=== PATIENT | male | born 1935 | race Caucasian/White ===

== ENCOUNTER → 2017-01-27 | Outpatient (CLI) | payer OTHER ==
[~2017-01-27] MED LIST: ACET-1311 PO; ACET325T96 PO; ASPEC81 PO; ASPI81TA28 PO; ATV1 PO; BUSP5TAB59 PO; CITA10TA4 PO; CITA10TA8 PO; CITA20TA9 PO; CLX20 PO; DIVA1CAP PO; MELA1TAB5 PO; MELATAB2 PO; MIRA1TAB3 PO; MIRT15TA2 PO; MULT-506 PO; MULTTAB PO; MULTTAB63 PO; NMN10 PO; POLY335019 PO; SRQ25 PO; TAMS0.4C38 PO; TRAZ50TA35 PO; ZYP25 PO; ZYP5 PO
== END | disposition home or self-care (01) ==
LOC: C.LABSPEC 17:38
PROVIDERS: ATTEND Nurse Practitioner Family
DX: N40.0 Benign prostatic hyperplasia without lower urinary tract symptoms (principal); R35.1 Nocturia

== ENCOUNTER 2017-02-20 19:45 | Emergency (ER) | payer OTHER ==
[~2017-02-20] VITALS: Ht 175.3 cm; Wt 84.0 kg
[~2017-02-20 19:45] MED LIST changes: -ACET-1311 PO; -ASPI81TA28 PO; -ATV1 PO; -BUSP5TAB59 PO; -CITA10TA4 PO; -CITA10TA8 PO; -CITA20TA9 PO; -CLX20 PO; -DIVA1CAP PO; -MELA1TAB5 PO; -MELATAB2 PO; -MIRA1TAB3 PO; -MULT-506 PO; -MULTTAB63 PO; -POLY335019 PO; -TAMS0.4C38 PO; -TRAZ50TA35 PO; -ZYP25 PO; -ZYP5 PO
[2017-02-20 19:49] VITALS: TEMP 36.9; Ht 175.3 cm; Wt 84.0 kg
[2017-02-20] MEDS ORDERED: SODIUM CHLORIDE 0.9% 1000ML 1,000 ML IV STA (20:13)
--- NOTE | 2017-02-20 20:21 | EMERGENCY ROOM VISIT NOTE ---
History Report prepared by Ghislaine: Alireza Yang Under the Supervision of: Dr. Kit Luong M.D. First contact with patient: 19:56 Chief Complaint: DIZZY Stated Complaint: DIZZINESS Nursing Triage Summary: pt c/o dizziness since 1729. reports pt was holding onto banister and furniture to stabilize himself, denies any falls or injury. pt denies pain. hx of Dementia family reports pt is acting as normal other than the dizziness. fall about 6 weeks ago and hit head History of Present Illness The patient is an 81 year old demented male who presents to the Emergency Room with complaints of persistent dizziness since approximately 1729 today. As per , the patient got up from a nap and was holding onto objects around the house to keep his balance. He did not fall or hit his head. The patient has been difficult to wake up lately. He has also had trouble changing his clothes. The has not noticed any fevers, chest pain, shortness of breath, nausea, vomiting. He has been keeping up with his fluids. The patient is not on any blood thinners. The patient takes Flomax. The patient is at baseline mental status per and neighbor, and is severely demented. Source of History: spouse/significant other, other (neighbor) Onset: 1729 today Position: other (global) Quality: other (dizziness) Timing: other (persistent) Associated Symptoms: No SOB, No chest pain, No fevers, No nausea, No vomiting Review of Systems See HPI for pertinent positives & negatives. A total of 10 systems reviewed and were otherwise negative. Past Medical & Surgical Medical Problems: (1) Dementia (2) Depression (3) Iron deficiency anemia Old medical records were reviewed. Nurse's notes were reviewed and I agree with. Family History Patient reports no known family medical history. Social History Smoking Status: Never Smoker Drug Use: none Marital Status: Housing Status: lives with significant other Occupation Status: retired Current/Historical Medications Scheduled Aspirin (Aspirin Ec), 81 MG PO QAM Citalopram Hydrobromide (Celexa), 10 MG PO QAM Melatonin (Kp Melatonin), 3 MG PO HS Memantine (Namenda), 10 MG PO BID Mirabegron (Myrbetriq Er), 50 MG PO QAM Multivitamin (Multivitamin), 1 TAB PO QAM Tamsulosin Hcl (Flomax), 0.4 MG PO HS Scheduled PRN Acetaminophen (Tylenol), 650 MG PO Q6H PRN for Pain or Fever Allergies Coded Allergies: Rivastigmine (Verified Allergy, Intermediate, NEURO COMPLICATIONS/RASH, ) Physical Exam Vital Signs Date Time Temp Pulse Resp B/P Pulse Ox O2 Delivery O2 Flow Rate FiO2 02/20/17 22:45 72 20 146/94 95 02/20/17 21:57 69 18 140/80 94 Room Air 02/20/17 20:09 62 02/20/17 19:49 36.9 67 18 135/77 95 Room Air Physical Exam General: Older male with baseline dementia no acute distress, breathing comfortably on room air. Normal speech HEENT: Normal cephalic atraumatic. Pupils are equal round and reactive to light. Sclerae anicteric. Extraocular movements are intact. No nystagmus. Oropharynx is pink with moist mucous membranes. No swelling of the mouth lips or tongue. Neck: Supple with a midline trachea. No meningeal signs or stiffness, no JVD or bruits. No Stridor. Chest: Clear to auscultation bilaterally. No wheezes or rhonchi. No increased work of breathing. Heart: regular rate and rhythm. Abdomen: Soft nontender, nondistended without rebound guarding or rigidity. Extremities: No cyanosis clubbing or edema. No calf tenderness or assymetry Spine/Back. Non tender to palpation. No CVA tenderness Skin: Good turgor without rashes. Neurologic exam: Cranial nerves two through 12 are intact. Motor and sensation are intact and symmetrical throughout. Significant baseline tremor noted. Medical Decision & Procedures ER Provider Diagnostic Interpretation: Radiology results as stated below per my review and radiologist interpretation: CHEST ONE VIEW PORTABLE HISTORY: Atypical CHEST PAIN COMPARISON: Chest 01/16/2016. FINDINGS: Low lung volumes. Patchy bibasilar densities, left greater the right. Trace left pleural effusion. The heart is normal in size. The upper lung zones are clear. No pneumothorax. IMPRESSION: Low lung volumes with patchy bibasilar densities. This may represent atelectasis or pneumonia. Trace left pleural effusion. Electronically signed by: Laureano Chavis M.D. 02/20/2017 9:02 PM Dictated Date/Time: 02/20/2017 9:[address] CT DOSE: 537.48 mGy.cm HISTORY: eval for dizziness TECHNIQUE: Multiaxial CT images of the head were performed without the use of intravenous contrast. Automated exposure control was utilized for this study. Comparison: Head CT 01/16/2016. Findings: The paranasal sinuses and mastoid air cells are clear. The calvarium and skull base are intact. There is no mass, hematoma, midline shift, acute infarct. White matter hypodensity is nonspecific but suggestive of microvascular ischemic change. The ventricles and sulci demonstrate moderate age-related involutional changes. Impression: No significant change compared to the prior study. No acute intracranial abnormality. Electronically signed by: Laureano Chavis M.D. 02/20/2017 9:19 PM Dictated Date/Time: 02/20/2017 9:16 PM Laboratory Results 02/20/17 20:25 Red Blood Count 4.73, Mean Corpuscular Volume 90.1, Mean Corpuscular Hemoglobin 30.0, Mean Corpuscular Hemoglobin Concent 33.3, Mean Platelet Volume 11.6, Neutrophils (%) (Auto) 54.2, Lymphocytes (%) (Auto) 28.8, Monocytes (%) (Auto) 9.4, Eosinophils (%) (Auto) 7.0, Basophils (%) (Auto) 0.4, Neutrophils # (Auto) 2.71, Lymphocytes # (Auto) 1.44, Monocytes # (Auto) 0.47, Eosinophils # (Auto) 0.35, Basophils # (Auto) 0.02 02/20/17 20:25 Test 02/20/17 20:25 02/20/17 20:36 02/20/17 21:45 White Blood Count 5.00 K/uL (4.8-10.8) Red Blood Count 4.73 M/uL (4.7-6.1) Hemoglobin 14.2 g/dL (14.0-18.0) Hematocrit 42.6 % (42-52) Mean Corpuscular Volume 90.1 fL (80-100) Mean Corpuscular Hemoglobin 30.0 pg (25-34) Mean Corpuscular Hemoglobin Concent 33.3 g/dl (32-36) Platelet Count 140 K/uL (130-400) Mean Platelet Volume 11.6 fL (7.4-10.4) Neutrophils (%) (Auto) 54.2 % Lymphocytes (%) (Auto) 28.8 % Monocytes (%) (Auto) 9.4 % Eosinophils (%) (Auto) 7.0 % Basophils (%) (Auto) 0.4 % Neutrophils # (Auto) 2.71 K/uL (1.4-6.5) Lymphocytes # (Auto) 1.44 K/uL (1.2-3.4) Monocytes # (Auto) 0.47 K/uL (0.11-0.59) Eosinophils # (Auto) 0.35 K/uL (0-0.5) Basophils # (Auto) 0.02 K/uL (0-0.2) RDW Standard Deviation 44.3 fL (36.4-46.3) RDW Coefficient of Variation 13.4 % (11.5-14.5) Immature Granulocyte % (Auto) 0.2 % Immature Granulocyte # (Auto) 0.01 K/uL (0.00-0.02) Anion Gap 8.0 mmol/L (3-11) Est Creatinine Clear Calc Drug Dose 57.6 ml/min Estimated GFR () 81.9 Estimated GFR (Non- 70.6 BUN/Creatinine Ratio 18.2 (10-20) Calcium Level 8.8 mg/dl (8.5-10.1) Total Bilirubin 0.5 mg/dl (0.2-1) Direct Bilirubin 0.1 mg/dl (0-0.2) Aspartate Amino Transf (AST/SGOT) 20 U/L (15-37) Alanine Aminotransferase (ALT/SGPT) 31 U/L (12-78) Alkaline Phosphatase 67 U/L (45-117) Total Protein 6.3 gm/dl (6.4-8.2) Albumin 3.5 gm/dl (3.4-5.0) Lipase 145 U/L (73-393) Bedside Troponin I 0.020 ng/ml (0-0.045) Urine Color YELLOW Urine Appearance CLEAR (CLEAR) Urine pH 6.5 (4.5-7.5) Urine Specific [place] 1.013 (1.000-1.030) Urine Protein NEG (NEG) Urine Glucose (UA) NEG (NEG) Urine Ketones NEG (NEG) Urine Occult Blood NEG (NEG) Urine Nitrite NEG (NEG) Urine Bilirubin NEG (NEG) Urine Urobilinogen NEG (NEG) Urine Leukocyte Esterase LARGE (NEG) Urine WBC (Auto) 10-30 /hpf (0-5) Urine RBC (Auto) 0-4 /hpf (0-4) Urine Hyaline Casts (Auto) 1-5 /lpf (0-5) Urine Epithelial Cells (Auto) >30 /lpf (0-5) Urine Bacteria (Auto) NEG (NEG) Laboratory studies as stated above per my review. Medications Administered Medications (Trade) Dose Ordered Sig/Amos Route Start Time Stop Time Status Last Admin Dose Admin Sodium Chloride (Nss 1000ml) 1,000 ml @ 999 mls/hr Q1H1M STAT IV 02/20/17 20:13 02/20/17 21:13 DC 02/20/17 20:51 999 MLS/HR ECG Indication: other (dizziness) Rate (beats per minute): 63 Rhythm: normal sinus Findings: no acute ischemic change, left axis deviation, other (occasional PVC) Change: PVC now present compared to EKG dated 18 January 2016 ED Course 2009: Past medical records reviewed. The patient was evaluated in room B8, and a complete history and physical examination were performed. 2013: NSS 1000 ml @ 999 mls/hr. 2210: The patient is feeling better and would like to go home. Discussed the discharge instructions with him. He verbalized understanding. The patient is ready for discharge. Medical Decision Differential diagnosis includes vertigo, intracranial process, infection, arrhythmia, electrolyte or metabolic abnormality. This patient comes in as described above. He is family was concerned that he felt dizzy today and was wobbly with walking he does have severe dementia and requires full mcc he's had no recent fall or trauma or illness. No known fever. No physical complaints. He is resting comfortably at his baseline neurologic neurologic exam. No change in medications. No recent urinary symptoms. IV access established. He was gently hydrated . EKG does not suggest acute coronary syndrome or arrhythmia. CAT scan of his head is unremarkable. He has no significant electrode or metabolic abnormality and he has nothing to suggest infection or sepsis. He was able to ambulate to the bathroom and seems to be back at his baseline according to the family they would like to take him home. I think this is reasonable. He'll be discharged to home. He'll return if: worsening of symptoms, fever or chills, numbness or weakness, any new problems concerns and be careful getting up and down. Follow- up with his doctor this week for recheck. Impression Primary Impression: Dizziness Scribe Attestation The scribe's documentation has been prepared under my direction and personally reviewed by me in its entirety. I confirm that the note above accurately reflects all work, treatment, procedures, and medical decision making performed by me. Departure Information Dispostion Home / Self-Care Referrals Kory Jennings MD (PCP) Forms HOME CARE DOCUMENTATION FORM, IMPORTANT VISIT INFORMATION Patient Instructions My [facility] [address] Additional Instructions Rest. Be careful getting up and down Return if: Worsening of symptoms, not acting like self, increasing dizziness, fever or chills, any new problems or concerns. Follow-up with your doctor in the next 1-2 days for recheck
[2017-02-20] MEDS ORDERED: TAMS0.4C38 PO (20:39)
[2017-02-20] MEDS ORDERED: MELA1TAB5 PO (20:39)
[2017-02-20] MEDS ORDERED: NMN10 PO (20:39)
[2017-02-20] MEDS ORDERED: MULT-506 PO (20:39)
[2017-02-20] MEDS ORDERED: ACET-1311 PO (20:39)
[2017-02-20] MEDS ORDERED: ASPI81TA28 PO (20:39)
[2017-02-20] MEDS ORDERED: MIRA1TAB3 PO (20:39)
[2017-02-20] MEDS ORDERED: CITA10TA8 PO (20:39)
[2017-02-20 20:43] LABS: BASO % 0.4 %; BASO ABS # 0.02 K/uL (0-0.2); COMPLETE YES; HEMATOCRIT 42.6 % (42-52); IG% 0.2 %; LYMPH % 28.8 %; LYMPH ABS # 1.44 K/uL (1.2-3.4); MEAN CELL VOLUME 90.1 fL (80-100); MEAN CORPUSCULAR HGB CONC 33.3 g/dl (32-36); MEAN PLATELET VOLUME 11.6 fL (7.4-10.4); MONO % 9.4 %; NEUT % 54.2 %; PLATELET COUNT 140 K/uL (130-400); RED BLOOD COUNT 4.73 M/uL (4.7-6.1)
[2017-02-20 20:58] LABS: CALCIUM 8.8 mg/dl (8.5-10.1)
[2017-02-20 20:59] LABS: BUN/CREATININE RATIO 18.2 (10-20); CREATININE 0.99 mg/dl (0.60-1.40); POTASSIUM 4.5 mmol/L (3.5-5.1)
--- NOTE | 2017-02-20 21:04 | DIAGNOSTIC IMAGING REPORT ---
CHEST ONE VIEW PORTABLE HISTORY: Atypical CHEST PAIN COMPARISON: Chest 01/16/2016. FINDINGS: Low lung volumes. Patchy bibasilar densities, left greater the right. Trace left pleural effusion. The heart is normal in size. The upper lung zones are clear. No pneumothorax. IMPRESSION: Low lung volumes with patchy bibasilar densities. This may represent atelectasis or pneumonia. Trace left pleural effusion. Electronically signed by: Laureano Chavis M.D. 02/20/2017 9:02 PM Dictated Date/Time: 02/20/2017 9:01 PM
--- NOTE | 2017-02-20 21:22 | DIAGNOSTIC IMAGING REPORT ---
HEAD CT NONCONTRAST CT DOSE: 537.48 mGy.cm HISTORY: eval for dizziness TECHNIQUE: Multiaxial CT images of the head were performed without the use of intravenous contrast. Automated exposure control was utilized for this study. Comparison: Head CT 01/16/2016. Findings: The paranasal sinuses and mastoid air cells are clear. The calvarium and skull base are intact. There is no mass, hematoma, midline shift, acute infarct. White matter hypodensity is nonspecific but suggestive of microvascular ischemic change. The ventricles and sulci demonstrate moderate age-related involutional changes. Impression: No significant change compared to the prior study. No acute intracranial abnormality. Electronically signed by: Laureano Chavis M.D. 02/20/2017 9:19 PM Dictated Date/Time: 02/20/2017 9:16 PM
[2017-02-20 22:10] LABS: URINE APPEARANCE CLEAR (CLEAR); URINE BILIRUBIN NEG (NEG); URINE COLOR YELLOW; URINE EPITHELIAL CELL AUTO >30 /lpf (0-5); URINE NITRITE NEG (NEG); URINE PH 6.5 (4.5-7.5); URINE SPECIFIC GRAVITY 1.013 (1.000-1.030); UROBILINOGEN NEG (NEG)
[2017-02-20 22:15] LABS: MANUAL MICROSCOPIC REQUIRED? NO; REVIEW REQ? NO
[2017-02-20 22:45] VITALS: BP 146/94; PULSE 72; O2SAT 95
[2017-03-02] MEDS ORDERED: TAMS0.4C38 PO (10:20)
[2017-05-24] MEDS ORDERED: CLX20 PO (13:03)
[2017-05-24] MEDS ORDERED: ZYP25 PO (13:03)
== END 2017-02-20 22:47 | disposition home or self-care (01) ==
LOC: C.EDB 19:46
DX: R42 Dizziness and giddiness (principal); F03.90 Unspecified dementia, unspecified severity, without behavioral disturbance, psychotic disturbance, mood disturbance, and anxiety; F32.9 Major depressive disorder, single episode, unspecified; D50.9 Iron deficiency anemia, unspecified; Z79.82 Long term (current) use of aspirin; Z79.899 Other long term (current) drug therapy

== ENCOUNTER 2017-04-12 13:29 | Emergency (ER) | payer OTHER ==
[~2017-04-12] VITALS: Ht 175.3 cm; Wt 82.0 kg
[~2017-04-12 13:29] MED LIST changes: -ACET325T96 PO; -ASPEC81 PO; +ASPI81TA28 PO; +CITA10TA8 PO; +MELA1TAB5 PO; +MIRA1TAB3 PO; -MIRT15TA2 PO; +MULT-506 PO; -MULTTAB PO; -SRQ25 PO; +TAMS0.4C38 PO
[2017-04-12 13:33] VITALS: TEMP 36.3; Ht 175.3 cm; Wt 82.0 kg
--- NOTE | 2017-04-12 13:49 | EMERGENCY ROOM VISIT NOTE ---
History Report prepared by Ghislaine: Jackson Johnson Under the Supervision of: Dr. Angel Mccall D.O. First contact with patient: 13:38 Chief Complaint: CONSTIPATION Stated Complaint: CONSTIPATION Nursing Triage Summary: triage note: pt reports pt has dementia. reports pt is constipated and has not had a bm for over 1 week. History of Present Illness The patient is an 81 year old male who presents to the Emergency Room with complaints of constant constipation that began one week ago. The patient's states that the patient has not had a bowel movement in the past week. 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 A total of 10 systems reviewed and were otherwise negative. Past Medical & Surgical Medical Problems: (1) Dementia (2) Depression (3) History of adenomatous polyp of colon (4) Iron deficiency anemia (5) Macular degeneration Surgical Problems: (1) Status post colonoscopy Family History Blood clots MOTHER (? pulmonary embolism) Myocardial infarction FATHER Social History Smoking Status: Never Smoker Drug Use: none Marital Status: Housing Status: lives with significant other Occupation Status: retired Current/Historical Medications Scheduled Aspirin (Aspirin Ec), 81 MG PO QAM Citalopram Hydrobromide (Celexa), 20 MG PO DAILY Melatonin (Melatonin Maximum Strengt), 5 MG PO HS Memantine (Namenda), 10 MG PO BID Mirabegron (Myrbetriq Er), 50 MG PO QAM Multivitamin (Multivitamin), 1 TAB PO QAM Tamsulosin Hcl (Flomax), 0.4 MG PO HS Allergies Coded Allergies: Rivastigmine (Verified Allergy, Intermediate, NEURO COMPLICATIONS/RASH, ) Physical Exam Vital Signs Date Time Temp Pulse Resp B/P (MAP) Pulse Ox O2 Delivery O2 Flow Rate FiO2 04/12/17 13:33 36.3 75 20 122/81 94 Room Air Physical Exam CONSTITUTIONAL/VITAL SIGNS: Reviewed / noted above. GENERAL: Non-toxic in appearance. INTEGUMENTARY: Warm, dry, and [place]. HEAD: Normocephalic. EYES: without scleral icterus or trauma. ENT/OROPHARYNX: clear and moist. LYMPHADENOPATHY/NECK: Is supple without lymphadenopathy or meningismus. RESPIRATORY: Lungs clear and equal. CARDIOVASCULAR: Regular rate and rhythm. GI/ABDOMEN: Soft and nontender. No organomegaly or pulsatile mass. No rebound or guarding. Normal bowel sounds. EXTREMITIES: Warm and well perfused. BACK: No CVA tenderness. NEUROLOGICAL: Intact without focal deficits. PSYCHIATRIC: normal affect. MUSCULOSKELETAL: Normally developed with good muscle tone. RECTAL: There is some soft light brown stool present in the rectal vault. Medical Decision & Procedures ER Provider Diagnostic Interpretation: Radiology results as stated below per my review and radiologist interpretation: KUB HISTORY: constipation COMPARISON: None. FINDINGS: Large amount well-formed stool seen within the colon and rectum. This includes a stool ball within the rectum measuring 7 cm. No renal calculi. No ureteral calculi. No pneumoperitoneum or pneumatosis. No evidence for bowel obstruction. Vascular calcifications are noted. IMPRESSION: Large amount well-formed stool seen throughout the colon and rectum. Electronically signed by: Laureano Chavis M.D. 04/12/2017 2:15 PM Dictated Date/Time: 04/12/2017 2:13 PM Medications Administered Medications (Trade) Dose Ordered Sig/Amos Route Start Time Stop Time Status Last Admin Dose Admin Magnesium Citrate (Citrate Of Magnesia Soln) 150 ml NOW ONCE PO 04/12/17 14:00 04/12/17 14:01 DC 04/12/17 14:00 150 ML ED Course 1339: Previous medical records were reviewed. The patient was evaluated in room C8. A complete history and physical examination was performed. 1400: Ordered Magnesium Citrate 150 mL PO. 1500: On reevaluation, the patient is resting in bed. I discussed the results and findings with the patient. The patient and his verbalized agreement of the treatment plan. He was discharged home. Medical Decision Differential diagnosis: Etiologies such as functional constipation, impaction, obstruction, volvulus, metabolic abnormality, infection, neurologic, as well as others were entertained. This is an 81-year-old male who presents to the ED with a chief complaint of constipation, for the . The patient's also states that she needs help with him at home. He has chronic dementia. He is difficult for her to handle. The patient's exam was unremarkable. His abdomen is soft and nontender. Rectal exam reveals some soft stool in the rectal vault. His vital signs are stable. He was given magnesium citrate here. Case management spoke with the patient and . She does have home health services coming 3 times a week. The patient did have a bowel movement. He was felt to be stable for discharge. Impression Primary Impression: Constipation Scribe Attestation The scribe's documentation has been prepared under my direction and personally reviewed by me in its entirety. I confirm that the note above accurately reflects all work, treatment, procedures, and medical decision making performed by me. Departure Information Dispostion Home / Self-Care Referrals Kory Jennings MD (PCP) Patient Instructions Constipation, My [facility] Additional Instructions Use your constipation medication regularly. Follow-up with your doctor for further care and evaluation in 1-2 days. Return to the emergency department for worsening or new symptoms or any concerns. You have been examined and treated today on an emergency basis only. This is not a substitute for, or an effort to provide, complete comprehensive medical care. It is impossible to recognize and treat all injuries or illnesses in a single emergency department visit. It is therefore important that you follow up closely with your doctor. Call as soon as possible for an appointment.
[2017-04-12] MEDS ORDERED: TAMS0.4C38 PO (13:57)
[2017-04-12] MEDS ORDERED: MELATAB2 PO (13:57)
[2017-04-12] MEDS ORDERED: CITA20TA9 PO (13:57)
[2017-04-12] MEDS ORDERED: MAGNESIUM CITRATE 296 ML/BTL PO ONE (14:00)
--- NOTE | 2017-04-12 14:17 | DIAGNOSTIC IMAGING REPORT ---
KUB HISTORY: constipation COMPARISON: None. FINDINGS: Large amount well-formed stool seen within the colon and rectum. This includes a stool ball within the rectum measuring 7 cm. No renal calculi. No ureteral calculi. No pneumoperitoneum or pneumatosis. No evidence for bowel obstruction. Vascular calcifications are noted. IMPRESSION: Large amount well-formed stool seen throughout the colon and rectum. Electronically signed by: Laureano Chavis M.D. 04/12/2017 2:15 PM Dictated Date/Time: 04/12/2017 2:13 PM
[2017-04-12 16:00] VITALS: BP 140/64; PULSE 68; O2SAT 99
[2017-05-24] MEDS ORDERED: CLX20 PO (13:03)
[2017-05-24] MEDS ORDERED: ZYP25 PO (13:03)
== END 2017-04-12 16:01 | disposition home or self-care (01) ==
LOC: C.EDB 13:31 → C.EDC 16:01
DX: K59.00 Constipation, unspecified (principal); F03.90 Unspecified dementia, unspecified severity, without behavioral disturbance, psychotic disturbance, mood disturbance, and anxiety; F32.9 Major depressive disorder, single episode, unspecified; D50.9 Iron deficiency anemia, unspecified; Z86.010 Personal history of colon polyps; Z79.82 Long term (current) use of aspirin; Z79.899 Other long term (current) drug therapy; Z88.8 Allergy status to other drugs, medicaments and biological substances; Z82.49 Family history of ischemic heart disease and other diseases of the circulatory system; Z83.2 Family history of diseases of the blood and blood-forming organs and certain disorders involving the immune mechanism

== ENCOUNTER 2017-04-19 14:49 | Emergency (ER) | payer OTHER ==
[~2017-04-19] VITALS: Ht 175.3 cm; Wt 84.0 kg
[~2017-04-19 14:49] MED LIST changes: -CITA10TA8 PO; +CITA20TA9 PO; -MELA1TAB5 PO; +MELATAB2 PO
[2017-04-19 14:53] VITALS: TEMP 36.6; Ht 175.3 cm; Wt 84.0 kg
--- NOTE | 2017-04-19 16:41 | EMERGENCY ROOM VISIT NOTE ---
History Report prepared by Ghislaine: Alireza Yang Under the Supervision of: Dr. Ladonna Vargas D.O. First contact with patient: 16:12 Chief Complaint: OTHER COMPLAINT Stated Complaint: NEEDS ORDER TO BE ADMITTED TO [place] History of Present Illness The patient is an 81 year old demented male who presents to the Emergency Room for acute medical clearance. The patient denies any pain. Per and neighbor , he has not had any recent illness, headaches, diarrhea. The patient does say that he is having trouble breathing. Per , he has not been sleeping. As per substitute teacher, the patient was in the ED on April 12 diagnosed with constipation and discharged. The patient has significant dementia. His is attempting to get the patient into assisted living. She is no longer able to take care of him and would like to have him admitted to [facility]. The patient needs to be medically cleared before being admitted. They were unable to get him in to see his PCP. The and neighbor state that he has no new medical problems The patient had three days of significant bowel movements since being discharged from the ED with constipation. 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 A total of 10 systems reviewed and were otherwise negative. Past Medical & Surgical Medical Problems: (1) Dementia (2) Depression (3) History of adenomatous polyp of colon (4) Iron deficiency anemia (5) Macular degeneration Surgical Problems: (1) Status post colonoscopy Family History Blood clots MOTHER (? pulmonary embolism) Myocardial infarction FATHER Social History Smoking Status: Never Smoker Drug Use: none Marital Status: Housing Status: lives with significant other Occupation Status: retired Current/Historical Medications Scheduled Aspirin (Aspirin Ec), 81 MG PO QAM Citalopram Hydrobromide (Celexa), 20 MG PO DAILY Melatonin (Melatonin Maximum Strengt), 5 MG PO HS Memantine (Namenda), 10 MG PO BID Mirabegron (Myrbetriq Er), 50 MG PO QAM Multivitamin (Multivitamin), 1 TAB PO QAM Tamsulosin Hcl (Flomax), 0.4 MG PO HS Allergies Coded Allergies: Rivastigmine (Verified Allergy, Intermediate, NEURO COMPLICATIONS/RASH, ) Physical Exam Vital Signs Date Time Temp Pulse Resp B/P (MAP) Pulse Ox O2 Delivery O2 Flow Rate FiO2 04/19/17 19:30 79 20 138/90 96 Room Air 04/19/17 17:32 81 18 161/93 96 Room Air 04/19/17 14:53 36.6 67 20 128/81 93 Room Air Physical Exam GENERAL: Patient appears confused consistent with known dementia. EYE EXAM: normal conjunctiva. OROPHARYNX: no exudate, no erythema, lips, buccal mucosa, and tongue normal and mucous membranes are moist NECK: supple, no nuchal rigidity, no adenopathy, non-tender LUNGS: Clear to auscultation. Normal chest wall mechanics HEART: no murmurs, S1 normal and S2 normal ABDOMEN: abdomen soft, non-tender, normo-active bowel sounds, no masses, no rebound or guarding. BACK: Back is symmetrical on inspection and there is no deformity, no midline tenderness, no CVA tenderness. SKIN: no rashes and no bruising UPPER EXTREMITIES: upper extremities are grossly normal. LOWER EXTREMITIES: No pitting edema. NEURO EXAM: Normal sensorium, cranial nerves II-XII grossly intact, normal speech, no gross weakness of arms, no gross weakness of legs. Gross sensation intact. Medical Decision & Procedures Laboratory Results 04/19/17 16:51 Red Blood Count 4.90, Mean Corpuscular Volume 90.4, Mean Corpuscular Hemoglobin 29.6, Mean Corpuscular Hemoglobin Concent 32.7, Mean Platelet Volume 11.4, Neutrophils (%) (Auto) 57.8, Lymphocytes (%) (Auto) 29.5, Monocytes (%) (Auto) 6.9, Eosinophils (%) (Auto) 5.3, Basophils (%) (Auto) 0.3, Neutrophils # (Auto) 3.63, Lymphocytes # (Auto) 1.85, Monocytes # (Auto) 0.43, Eosinophils # (Auto) 0.33, Basophils # (Auto) 0.02 04/19/17 16:51 Test 04/19/17 16:51 04/19/17 17:20 White Blood Count 6.27 K/uL (4.8-10.8) Red Blood Count 4.90 M/uL (4.7-6.1) Hemoglobin 14.5 g/dL (14.0-18.0) Hematocrit 44.3 % (42-52) Mean Corpuscular Volume 90.4 fL (80-100) Mean Corpuscular Hemoglobin 29.6 pg (25-34) Mean Corpuscular Hemoglobin Concent 32.7 g/dl (32-36) Platelet Count 151 K/uL (130-400) Mean Platelet Volume 11.4 fL (7.4-10.4) Neutrophils (%) (Auto) 57.8 % Lymphocytes (%) (Auto) 29.5 % Monocytes (%) (Auto) 6.9 % Eosinophils (%) (Auto) 5.3 % Basophils (%) (Auto) 0.3 % Neutrophils # (Auto) 3.63 K/uL (1.4-6.5) Lymphocytes # (Auto) 1.85 K/uL (1.2-3.4) Monocytes # (Auto) 0.43 K/uL (0.11-0.59) Eosinophils # (Auto) 0.33 K/uL (0-0.5) Basophils # (Auto) 0.02 K/uL (0-0.2) RDW Standard Deviation 45.3 fL (36.4-46.3) RDW Coefficient of Variation 13.9 % (11.5-14.5) Immature Granulocyte % (Auto) 0.2 % Immature Granulocyte # (Auto) 0.01 K/uL (0.00-0.02) Prothrombin Time 11.0 SECONDS (9.0-12.0) Prothromb Time International Ratio 1.0 (0.9-1.1) Anion Gap 6.0 mmol/L (3-11) Est Creatinine Clear Calc Drug Dose 61.3 ml/min Estimated GFR () 88.3 Estimated GFR (Non- 76.2 BUN/Creatinine Ratio 18.3 (10-20) Calcium Level 8.6 mg/dl (8.5-10.1) Magnesium Level 2.3 mg/dl (1.8-2.4) Total Bilirubin 0.6 mg/dl (0.2-1) Aspartate Amino Transf (AST/SGOT) 17 U/L (15-37) Alanine Aminotransferase (ALT/SGPT) 25 U/L (12-78) Alkaline Phosphatase 76 U/L (45-117) Total Protein 6.6 gm/dl (6.4-8.2) Albumin 3.6 gm/dl (3.4-5.0) Globulin 3.0 gm/dl (2.5-4.0) Albumin/Globulin Ratio 1.2 (0.9-2) Thyroid Stimulating Hormone (TSH) 1.300 uIu/ml (0.300-4.500) Chemistry Specimen Hemolysis Urine Color DK YELLOW Urine Appearance CLEAR (CLEAR) Urine pH 6.5 (4.5-7.5) Urine Specific [place] 1.025 (1.000-1.030) Urine Protein NEG (NEG) Urine Glucose (UA) NEG (NEG) Urine Ketones NEG (NEG) Urine Occult Blood NEG (NEG) Urine Nitrite NEG (NEG) Urine Bilirubin NEG (NEG) Urine Urobilinogen NEG (NEG) Urine Leukocyte Esterase SMALL (NEG) Urine WBC (Auto) 10-30 /hpf (0-5) Urine RBC (Auto) 0-4 /hpf (0-4) Urine Hyaline Casts (Auto) 5-10 /lpf (0-5) Urine Epithelial Cells (Auto) 20-30 /lpf (0-5) Urine Bacteria (Auto) NEG (NEG) Date/Time Source Procedure Growth Status 04/19/17 17:20 Urine , Clean Catch Urine Culture - Final MORE THAN THREE TYPES OF ORGANISMS NH... Complete Laboratory results per my review. Medications Administered Medications (Trade) Dose Ordered Sig/Amos Route Start Time Stop Time Status Last Admin Dose Admin Lorazepam (Ativan Tab) 0.5 mg NOW STAT SL 04/19/17 19:37 04/19/17 19:38 DC 04/19/17 20:15 0.5 MG ED Course 1633: The patient was evaluated in room B7. A complete history and physical exam was performed. 164: The Chief School Finance Officer was in contact with [facility]. 1811: Case Management has spent significant time discussing options for placement with the family. Please refer to their notes. 1934: Family now requesting discharge of the patient since their preferred place of placement for pt is unavailable. 1936: Ativan 0.5 ml SL. Medical Decision Blood pressure screening: Patient was found to have an elevated blood pressure and was referred to their primary doctor for recheck and further treatment. Medication Reconciliation: I attest that I have personally reviewed the patient' s current medication list. Pt brought to ER to help facilitate placement into local facility. No acute complaints by patient or changes noticed by family. Unable to place pt into desired facility due to availability. Please see rn case manager hospice documentation. Family ultimately decided to take pt home. Requested medication to help pt remain calm and sleep. Pt well appearing throughout. VS stable. Impression Primary Impression: Dementia Scribe Attestation The scribe's documentation has been prepared under my direction and personally reviewed by me in its entirety. I confirm that the note above accurately reflects all work, treatment, procedures, and medical decision making performed by me. Departure Information Dispostion Home / Self-Care Referrals Kory Jennings MD (PCP) Forms HOME CARE DOCUMENTATION FORM, IMPORTANT VISIT INFORMATION, WORK / SCHOOL INSTRUCTIONS Patient Instructions My [facility] Additional Instructions Please follow-up with your family doctor and [facility] for placement. Please continue your routine medications. You may eat/drink normally. Problem Qualifiers Primary Impression: Dementia Dementia type: unspecified type Dementia behavioral disturbance: without behavioral disturbance Qualified Codes: F03.90 - Unspecified dementia without behavioral disturbance
[2017-04-19 17:01] LABS: BASO % 0.3 %; BASO ABS # 0.02 K/uL (0-0.2); COMPLETE YES; EOS % 5.3 %; HEMATOCRIT 44.3 % (42-52); IG% 0.2 %; LYMPH % 29.5 %; LYMPH ABS # 1.85 K/uL (1.2-3.4); MEAN CELL VOLUME 90.4 fL (80-100); MEAN CORPUSCULAR HEMOGLOBIN 29.6 pg (25-34); MEAN CORPUSCULAR HGB CONC 32.7 g/dl (32-36); MEAN PLATELET VOLUME 11.4 fL (7.4-10.4); MONO % 6.9 %; NEUT % 57.8 %; PLATELET COUNT 151 K/uL (130-400); WHITE BLOOD COUNT 6.27 K/uL (4.8-10.8)
[2017-04-19 17:36] LABS: ALB/GLOB RATIO 1.2 (0.9-2); BUN/CREATININE RATIO 18.3 (10-20); CALCIUM 8.6 mg/dl (8.5-10.1); CREATININE 0.93 mg/dl (0.60-1.40); MAGNESIUM 2.3 mg/dl (1.8-2.4); POTASSIUM 4.5 mmol/L (3.5-5.1); THYROID STIMULATING HORMONE 1.3 uIu/ml (0.300-4.500)
[2017-04-19 17:45] LABS: URINE APPEARANCE CLEAR (CLEAR); URINE BILIRUBIN NEG (NEG); URINE COLOR DK YELLOW; URINE EPITHELIAL CELL AUTO 20-30 /lpf (0-5); URINE NITRITE NEG (NEG); URINE PH 6.5 (4.5-7.5); URINE SPECIFIC GRAVITY 1.025 (1.000-1.030); UROBILINOGEN NEG (NEG); ZZUR CULT IF INDIC CLEAN CATCH YES
[2017-04-19 17:50] LABS: MANUAL MICROSCOPIC REQUIRED? NO; REVIEW REQ? NO
[2017-04-19 19:30] VITALS: BP 138/90; PULSE 79; O2SAT 96
[2017-04-19] MEDS ORDERED: LORAZEPAM 0.5 MG TAB SL STA (19:37)
[2017-05-24] MEDS ORDERED: CLX20 PO (13:03)
[2017-05-24] MEDS ORDERED: ZYP25 PO (13:03)
== END 2017-04-19 20:15 | disposition home or self-care (01) ==
LOC: C.EDB 14:51
DX: Z02.2 Encounter for examination for admission to residential institution (principal); F03.90 Unspecified dementia, unspecified severity, without behavioral disturbance, psychotic disturbance, mood disturbance, and anxiety; Z79.899 Other long term (current) drug therapy; Z82.49 Family history of ischemic heart disease and other diseases of the circulatory system

== ENCOUNTER 2017-05-20 19:44 | Inpatient (IN) | payer OTHER ==
[~2017-05-20] VITALS: Ht 175.3 cm; Wt 80.1 kg
--- NOTE | 2017-05-20 21:07 | DIAGNOSTIC IMAGING REPORT ---
CHEST ONE VIEW PORTABLE CLINICAL HISTORY: Symptoms of pneumonia COMPARISON STUDY: 02/26/2017 FINDINGS: The heart is enlarged. There is a trace left pleural effusion. There are by basilar opacities, atelectatic versus inflammatory. There is no failure.[ IMPRESSION: Bibasilar opacities, atelectatic versus infectious/inflammatory. Trace left pleural effusion. Electronically signed by: José Miguel Espana M.D. 05/20/2017 9:06 PM Dictated Date/Time: 05/20/2017 9:04 PM
[2017-05-20 21:47] LABS: BASO % 0.5 %; BASO ABS # 0.03 K/uL (0-0.2); COMPLETE YES; EOS % 6.7 %; HEMATOCRIT 42.2 % (42-52); IG% 0.3 %; LYMPH ABS # 1.83 K/uL (1.2-3.4); MEAN CELL VOLUME 89.8 fL (80-100); MEAN CORPUSCULAR HEMOGLOBIN 30.2 pg (25-34); MEAN CORPUSCULAR HGB CONC 33.6 g/dl (32-36); MEAN PLATELET VOLUME 11.4 fL (7.4-10.4); MONO % 8.3 %; NEUT % 56.2 %; PLATELET COUNT 143 K/uL (130-400); WHITE BLOOD COUNT 6.53 K/uL (4.8-10.8)
[2017-05-20 22:04] LABS: BUN/CREATININE RATIO 17.3 (10-20); CREATININE 1.1 mg/dl (0.60-1.40); POTASSIUM 4.3 mmol/L (3.5-5.1)
[2017-05-20] MEDS ORDERED: SODIUM CHLORIDE 0.9% 500ML 500 ML IV STA (22:24)
[2017-05-20] MEDS ORDERED: LORAZEPAM 0.5 MG TAB SL STA (22:36)
[2017-05-20] MEDS ORDERED: ZYP25 PO ×2 (23:05)
[2017-05-20] MEDS ORDERED: MULTTAB63 PO (23:05)
[2017-05-20] MEDS ORDERED: TRAZ50TA35 PO (23:06)
[2017-05-21] MEDS ORDERED: LORAZEPAM 0.5 MG TAB SL STA (00:19)
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
[2017-05-21] MEDS ORDERED: HALOPERIDOL 1 MG TAB PO PRN (01:45)
[2017-05-21 02:01] LABS: MAGNESIUM 2.3 mg/dl (1.8-2.4); THYROID STIMULATING HORMONE 1.35 uIu/ml (0.300-4.500)
[2017-05-21] MEDS ORDERED: IBUPROFEN 200 MG TAB PO PRN (02:30)
[2017-05-21] MEDS ORDERED: SODIUM CHLORIDE 0.45% 1000ML 1,000 ML IV ONE (02:30)
[2017-05-21] MEDS ORDERED: ACETAMINOPHEN 325 MG TAB PO PRN (02:30)
[2017-05-21] MEDS ORDERED: ONDANSETRON INJ 2 MG/ML 2 ML VIAL IV PRN (02:30)
[2017-05-21 02:39] VITALS: O2SAT 95
[2017-05-21 03:05] VITALS: BP 152/75; PULSE 58; TEMP 36.6; O2SAT 98
[2017-05-21 03:35] VITALS: BP 152/75; PULSE 58; TEMP 36.6; Ht 175.3 cm; Wt 80.1 kg
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
[2017-05-21 07:30] LABS: BASO % 0.4 %; BASO ABS # 0.02 K/uL (0-0.2); COMPLETE YES; EOS % 7.8 %; HEMATOCRIT 39.7 % (42-52); IG% 0.2 %; LYMPH % 32.1 %; LYMPH ABS # 1.76 K/uL (1.2-3.4); MEAN CELL VOLUME 88.8 fL (80-100); MEAN CORPUSCULAR HEMOGLOBIN 29.8 pg (25-34); MEAN CORPUSCULAR HGB CONC 33.5 g/dl (32-36); MEAN PLATELET VOLUME 11.5 fL (7.4-10.4); MONO % 8.2 %; NEUT % 51.3 %; PLATELET COUNT 127 K/uL (130-400); RED BLOOD COUNT 4.47 M/uL (4.7-6.1); WHITE BLOOD COUNT 5.49 K/uL (4.8-10.8)
[2017-05-21 08:17] VITALS: BP 138/71; PULSE 57; TEMP 36.5; O2SAT 98
[2017-05-21 08:24] LABS: BUN/CREATININE RATIO 17.8 (10-20); CALCIUM 8.4 mg/dl (8.5-10.1); CREATININE 0.95 mg/dl (0.60-1.40)
[2017-05-21] MEDS ORDERED: CITALOPRAM 20 MG TAB PO SCH (09:00)
[2017-05-21] MEDS: MEMANTINE 10 MG TAB PO SCH ×2 (09:05→19:57)
[2017-05-21] MEDS: ASPIRIN 81 MG ECTAB PO SCH (09:05)
[2017-05-21] MEDS: ENOXAPARIN 40 MG/0.4 ML SYR SQ SCH (09:05)
[2017-05-21] MEDS: OLANZAPINE 2.5 MG TAB PO SCH ×2 (12:54→19:57)
--- NOTE | 2017-05-21 13:53 | Psychiatric Progress Notes ---
Psychiatric Progress Note Date of Service May 21, 2017. Notes consult dictated Dx: advanced mixed dementia w/ behavioral disturbance 1. zyprexa started just yesterday. will give it a little tie to show effect before titration or alternative 2. reduce celexa to 10mg 2/2 h/o confusion w/ SSRI's in past 3. holding trazodone for now (recent addition) 4. restart melatonin 5mg qhs for sleep 5. continue sitter 6. pt will need dispo to skilled facility or memory care 7. will follow
[2017-05-21] MEDS: HALOPERIDOL LACTATE 5 MG/ML 1 ML VIAL IM PRN (14:52)
[2017-05-21 15:06] VITALS: BP 140/79; PULSE 64; TEMP 36.4; O2SAT 100
--- NOTE | 2017-05-21 16:26 | Progress Note ---
Internal Med Progress Note Date of Service: May 21, 2017. Provider Documentation: Patient resting comfortably. Not oriented.says no for all questions.Hemodynamic stable. Consulted psychiatry and appreciate inputs. Vital Signs: Date Time Temp Pulse Resp B/P (MAP) Pulse Ox O2 Delivery O2 Flow Rate FiO2 05/21/17 15:06 36.4 64 18 140/79 (99) 100 Room Air 05/21/17 08:17 36.5 57 18 138/71 (93) 98 Room Air 05/21/17 08:00 Room Air 05/21/17 03:35 36.6 58 18 152/75 Room Air 05/21/17 03:05 36.6 58 18 152/75 (100) 98 Room Air 05/21/17 02:39 60 18 122/68 95 05/21/17 00:35 55 18 130/74 96 Room Air 05/20/17 23:00 78 18 156/68 96 Room Air 05/20/17 19:45 36.9 69 18 142/95 94 Room Air Lab Results: Results Past 24 Hours Test 05/20/17 21:31 05/21/17 07:10 Range/Units White Blood Count 6.53 5.49 4.8-10.8 K/uL Red Blood Count 4.70 4.47 4.7-6.1 M/uL Hemoglobin 14.2 13.3 14.0-18.0 g/dL Hematocrit 42.2 39.7 42-52 % Mean Corpuscular Volume 89.8 88.8 80-100 fL Mean Corpuscular Hemoglobin 30.2 29.8 25-34 pg Mean Corpuscular Hemoglobin Concent 33.6 33.5 32-36 g/dl Platelet Count 143 127 130-400 K/uL Mean Platelet Volume 11.4 11.5 7.4-10.4 fL Neutrophils (%) (Auto) 56.2 51.3 % Lymphocytes (%) (Auto) 28.0 32.1 % Monocytes (%) (Auto) 8.3 8.2 % Eosinophils (%) (Auto) 6.7 7.8 % Basophils (%) (Auto) 0.5 0.4 % Neutrophils # (Auto) 3.67 2.82 1.4-6.5 K/uL Lymphocytes # (Auto) 1.83 1.76 1.2-3.4 K/uL Monocytes # (Auto) 0.54 0.45 0.11-0.59 K/uL Eosinophils # (Auto) 0.44 0.43 0-0.5 K/uL Basophils # (Auto) 0.03 0.02 0-0.2 K/uL RDW Standard Deviation 44.9 44.2 36.4-46.3 fL RDW Coefficient of Variation 13.6 13.5 11.5-14.5 % Immature Granulocyte % (Auto) 0.3 0.2 % Immature Granulocyte # (Auto) 0.02 0.01 0.00-0.02 K/uL Sodium Level 146 144 136-145 mmol/L Potassium Level 4.3 4.0 3.5-5.1 mmol/L Chloride Level 113 112 98-107 mmol/L Carbon Dioxide Level 31 27 21-32 mmol/L Anion Gap 2.0 5.0 3-11 mmol/L Blood Urea Nitrogen 19 17 7-18 mg/dl Creatinine 1.10 0.95 0.60-1.40 mg/dl Est Creatinine Clear Calc Drug Dose 51.8 23.1 ml/min Estimated GFR () 72.1 86.1 Estimated GFR (Non- 62.2 74.2 BUN/Creatinine Ratio 17.3 17.8 10-20 Random Glucose 96 80 70-99 mg/dl Calcium Level 9.0 8.4 8.5-10.1 mg/dl Magnesium Level 2.3 1.8-2.4 mg/dl Total Bilirubin 0.5 0.2-1 mg/dl Direct Bilirubin 0.1 0-0.2 mg/dl Aspartate Amino Transf (AST/SGOT) 14 15-37 U/L Alanine Aminotransferase (ALT/SGPT) 18 12-78 U/L Alkaline Phosphatase 68 45-117 U/L Total Protein 6.3 6.4-8.2 gm/dl Albumin 3.5 3.4-5.0 gm/dl Thyroid Stimulating Hormone (TSH) 1.350 0.300-4.500 uIu/ml
[2017-05-21] MEDS: CEROVITE ADV FORMULA TAB PO SCH (19:57)
[2017-05-21] MEDS: TAMSULOSIN HCL 0.4 MG CAP PO SCH (19:57)
[2017-05-21 21:27] LABS: URINE APPEARANCE CLEAR (CLEAR); URINE BILIRUBIN NEG (NEG); URINE COLOR YELLOW; URINE NITRITE NEG (NEG); URINE PH 6.5 (4.5-7.5); URINE SPECIFIC GRAVITY 1.017 (1.000-1.030); UROBILINOGEN POS (NEG); ZZUR CULT IF INDIC CLEAN CATCH NO
[2017-05-21 21:28] LABS: MANUAL MICROSCOPIC REQUIRED? NO; REVIEW REQ? NO
[2017-05-21 22:58] VITALS: BP 147/68; PULSE 52; TEMP 36.5; O2SAT 96
[2017-05-22 06:56] VITALS: BP 145/76; PULSE 52; TEMP 36.1; O2SAT 98
[2017-05-22] MEDS: ENOXAPARIN 40 MG/0.4 ML SYR SQ SCH (08:10)
[2017-05-22] MEDS: CITALOPRAM 20 MG TAB PO SCH (08:11)
[2017-05-22] MEDS: ASPIRIN 81 MG ECTAB PO SCH (08:11)
[2017-05-22] MEDS: MEMANTINE 10 MG TAB PO SCH ×2 (08:12→19:48)
[2017-05-22] MEDS: OLANZAPINE 2.5 MG TAB PO PRN ×2 (08:46→19:48)
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
[2017-05-22] MEDS: OLANZAPINE 2.5 MG TAB PO SCH ×2 (12:40→19:48)
[2017-05-22 14:36] VITALS: BP 120/84; PULSE 67; TEMP 36.4; O2SAT 97
--- NOTE | 2017-05-22 15:39 | Progress Note ---
Internal Med Progress Note Date of Service: May 22, 2017. Provider Documentation: patient sitting on chair comfortably not oriented tries to get when examining eating ok as per nursing staff Exam: General-Not oriented. Not in distress ENT-normal hearing Neck-no neck masses Lungs-cta b/l no wheezing or crackles Heart-s1 and s2 heard, regular rate and rhythm, no murmurs Abdomen-soft bowel sounds present non tender no distension Extremities-no edema no erythema Neuro-alert and awake. Not oriented moves extremities ASSESSMENT & PLAN: Delirium on dementia Agitation noted upon transfer to a new living facility im Haldol prn olanzapine po prn appreciate psychiatry input plan for placement BPH as per records DVT prophylaxis Lovenox subcutaneous per H and P:DO NOT RESUSCITATE as per /POA, Mrs. Samira Edgar. She requests updates from providers at [phone]. Vital Signs: Date Time Temp Pulse Resp B/P (MAP) Pulse Ox O2 Delivery O2 Flow Rate FiO2 05/22/17 14:36 36.4 67 18 120/84 (96) 97 Room Air 05/22/17 08:00 Room Air 05/22/17 06:56 36.1 52 18 145/76 (99) 98 Room Air 05/22/17 00:01 Room Air 05/21/17 22:58 36.5 52 18 147/68 (94) 96 Room Air 05/21/17 20:00 Room Air 05/21/17 16:00 Room Air
[2017-05-22] MEDS: HALOPERIDOL LACTATE 5 MG/ML 1 ML VIAL IM PRN ×2 (16:55→23:13)
[2017-05-22] MEDS: CEROVITE ADV FORMULA TAB PO SCH (19:48)
[2017-05-22] MEDS: TAMSULOSIN HCL 0.4 MG CAP PO SCH (19:48)
[2017-05-22 23:37] VITALS: BP 126/62; PULSE 87; TEMP 36.6; O2SAT 95
[2017-05-23] MEDS: CITALOPRAM 20 MG TAB PO SCH (08:45)
[2017-05-23] MEDS: MEMANTINE 10 MG TAB PO SCH ×2 (08:45→20:42)
[2017-05-23] MEDS: ASPIRIN 81 MG ECTAB PO SCH (08:45)
[2017-05-23] MEDS: ENOXAPARIN 40 MG/0.4 ML SYR SQ SCH (08:45)
--- NOTE | 2017-05-23 08:45 | Psychiatric Progress Notes ---
Psychiatric Progress Note Date of Service May 23, 2017. Notes ID: Patient reviewed with liaison nurse. Initial consult by his outpatient geriatric psychiatrist Dr. Bhatt. CC: combative with staff HPI: patient currently resting after 2.5 IM Haldol late last night. ROS: unable to complete MSE: unable to complete Imp: as per initial consult Plan: defer to Dr. Bhatt on starting doses of Zyprexa and statement that a bit early to titrate monitor frequency of prn Zyprexa and Haldol usage. Would avoid coadmin of Haldol with Cogentin given risks of anticholinergic delirium unless significant EPS or difficulty swallowing. Would prefer titration of Zyprexa over any titration of Haldol.
[2017-05-23 13:01] VITALS: BP 123/67; PULSE 67; TEMP 36.8; O2SAT 92
[2017-05-23] MEDS: OLANZAPINE 2.5 MG TAB PO SCH ×2 (13:15→20:42)
[2017-05-23 15:25] VITALS: BP 105/53; PULSE 55; TEMP 36.4; O2SAT 93
--- NOTE | 2017-05-23 18:30 | Progress Note ---
Internal Med Progress Note Date of Service: May 23, 2017. Provider Documentation: patient received IM Haldol last night slept whole morning and woke late in day comfortable afebrile does not answer questions not oriented Exam: General-Not oriented. Not in distress ENT-normal hearing Neck-no neck masses Lungs-cta b/l no wheezing or crackles Heart-s1 and s2 heard, regular rate and rhythm, no murmurs Abdomen-soft bowel sounds present non tender no distension Extremities-no edema no erythema Neuro-alert and awake. Not oriented moves extremities ASSESSMENT & PLAN: Delirium on dementia Agitation noted upon transfer to a new living facility im Haldol prn olanzapine po scheduled dose and prn as per psychiatry appreciate psychiatry input Awaiting placement BPH as per records DVT prophylaxis Lovenox subcutaneous per H and P:DO NOT RESUSCITATE as per /POA, Mrs. Samira Edgar. She requests updates from providers at [phone]. Vital Signs: Date Time Temp Pulse Resp B/P (MAP) Pulse Ox O2 Delivery O2 Flow Rate FiO2 05/23/17 15:25 36.4 55 18 105/53 (70) 93 Room Air 05/23/17 13:01 36.8 67 18 123/67 (85) 92 Room Air 05/23/17 08:00 Room Air 05/23/17 00:01 Room Air 05/22/17 23:37 36.6 87 20 126/62 (83) 95 Room Air 05/22/17 20:00 Room Air
[2017-05-23 19:01] VITALS: BP 136/76; PULSE 66; TEMP 36.5; O2SAT 96
[2017-05-23] MEDS: TAMSULOSIN HCL 0.4 MG CAP PO SCH (20:39)
[2017-05-23] MEDS: CEROVITE ADV FORMULA TAB PO SCH (20:40)
[2017-05-23] MEDS: OLANZAPINE 2.5 MG TAB PO PRN (20:42)
[2017-05-23 23:11] VITALS: BP 142/77; PULSE 61; TEMP 36.5; O2SAT 98
[2017-05-24] MEDS: ASPIRIN 81 MG ECTAB PO SCH (08:06)
[2017-05-24] MEDS: MEMANTINE 10 MG TAB PO SCH (08:06)
[2017-05-24] MEDS: CITALOPRAM 20 MG TAB PO SCH (08:07)
[2017-05-24] MEDS: OLANZAPINE 2.5 MG TAB PO PRN (08:07)
[2017-05-24] MEDS: ENOXAPARIN 40 MG/0.4 ML SYR SQ SCH (08:10)
[2017-05-24 08:20] LABS: HEMATOCRIT 43.5 % (42-52); MEAN CELL VOLUME 87.9 fL (80-100); MEAN CORPUSCULAR HEMOGLOBIN 30.3 pg (25-34); MEAN CORPUSCULAR HGB CONC 34.5 g/dl (32-36); MEAN PLATELET VOLUME 12.1 fL (7.4-10.4); PLATELET COUNT 128 K/uL (130-400); RED BLOOD COUNT 4.95 M/uL (4.7-6.1); WHITE BLOOD COUNT 5.52 K/uL (4.8-10.8)
[2017-05-24 08:22] LABS: BASO % 0.4 %; BASO ABS # 0.02 K/uL (0-0.2); COMPLETE YES; EOS % 7.2 %; IG% 0.2 %; MONO % 7.8 %; NEUT % 55.4 %; PLT ESTIMATE DECREASED
[2017-05-24 08:29] VITALS: BP 126/74; PULSE 56; TEMP 36.8; O2SAT 93
[2017-05-24 08:29] LABS: CREATININE 0.96 mg/dl (0.60-1.40)
--- NOTE | 2017-05-24 13:01 | Progress Note ---
Medicine Progress Note Date & Time of Visit: May 24, 2017 at 12:54. Subjective patient seen with RNs at bedside laying in bed, comfortable, calm, cooperative disoriented denies chest pain, dyspnea, dizziness, any pain no other symptoms states he feels fine overall Objective Last 8 Hrs Date Time Temp Pulse Resp B/P (MAP) Pulse Ox O2 Delivery O2 Flow Rate FiO2 05/24/17 08:29 36.8 56 18 126/74 (91) 93 Room Air 05/24/17 08:10 Room Air Physical Exam: General- not oriented, not in distress, no accessory muscle use Head- atraumatic Eyes- EOMI, anicteric ENT- oropharynx clear Neck- supple, no JVD Lungs- clear breath sounds bilaterally Heart- regular rhythm; no murmur, normal rate Abdomen- normal bowel sounds, soft, nontender Extremities- no pretibial edema, no calf tenderness Neuro- alert,not oriented x 3, otherwise no gross focal neuro deficits noted Skin- warm & dry Laboratory Results: Last 24 Hours Test 05/24/17 07:39 White Blood Count 5.52 K/uL Red Blood Count 4.95 M/uL Hemoglobin 15.0 g/dL Hematocrit 43.5 % Mean Corpuscular Volume 87.9 fL Mean Corpuscular Hemoglobin 30.3 pg Mean Corpuscular Hemoglobin Concent 34.5 g/dl Platelet Count 128 K/uL Mean Platelet Volume 12.1 fL Neutrophils (%) (Auto) 55.4 % Lymphocytes (%) (Auto) 29.0 % Monocytes (%) (Auto) 7.8 % Eosinophils (%) (Auto) 7.2 % Basophils (%) (Auto) 0.4 % Neutrophils # (Auto) 3.06 K/uL Lymphocytes # (Auto) 1.60 K/uL Monocytes # (Auto) 0.43 K/uL Eosinophils # (Auto) 0.40 K/uL Basophils # (Auto) 0.02 K/uL RDW Standard Deviation 43.6 fL RDW Coefficient of Variation 13.6 % Immature Granulocyte % (Auto) 0.2 % Immature Granulocyte # (Auto) 0.01 K/uL Platelet Estimate DECREASED Creatinine 0.96 mg/dl Est Creatinine Clear Calc Drug Dose 59.3 ml/min Estimated GFR () 85.0 Estimated GFR (Non- 73.3 Assessment & Plan DELIRIUM ON DEMENTIA Agitation noted upon transfer to a new living facility -- evaluated by Psychiatry given PRN Haldol and Zyprexa for agitation -- calm, mostly cooperative today -- discussed with Psych service, recommendations: increase Zyprexa to 1.25mg po TID from BID Citalopram reduced to 10mg po daily --- monitor QTc on EKG regularly as Zyprexa has been increased titrate Zyprexa, Citalopram accordingly -- will be transitioned to [facility] Unit Fall precautions please, monitor closely as patient sometimes gets out of bed BPH -- stable DVT prophylaxis -- given Lovenox subcutaneously Code Status DNR Disposition return to [facility] ff up with PCP in [facility] within 1 week Current Inpatient Medications: Current Inpatient Medications Medications (Trade) Dose Ordered Sig/Amos Route Start Time Stop Time Status Last Admin Dose Admin Haloperidol Lactate (Haldol Inj) 2 mg Q2H PRN IM 05/21/17 01:45 06/20/17 01:44 05/22/17 23:13 2 MG Enoxaparin Sodium (Lovenox Inj) 40 mg Q24H SQ 05/21/17 09:00 06/20/17 08:59 05/22/17 08:10 40 MG Acetaminophen (Tylenol Tab) 650 mg Q4H PRN PO 05/21/17 02:30 06/20/17 02:29 Aspirin (Ecotrin Tab) 81 mg QAM PO 05/21/17 09:00 06/20/17 08:59 05/24/17 08:06 81 MG Memantine (Namenda Tab) 10 mg BID PO 05/21/17 09:00 06/20/17 08:59 05/24/17 08:06 10 MG Multivitamins/ Minerals (Multivitamin W/ Minerals Tab) 1 tab HS PO 05/21/17 21:00 06/20/17 20:59 05/23/17 20:40 1 TAB Tamsulosin HCl (Flomax Cap) 0.4 mg HS PO 05/21/17 21:00 06/20/17 20:59 05/23/17 20:39 0.4 MG Ibuprofen (Advil Tab) 400 mg Q6H PRN PO 05/21/17 02:30 06/20/17 02:29 Ondansetron HCl (Zofran Inj) 4 mg Q6H PRN IV 05/21/17 02:30 06/20/17 02:29 Olanzapine (Zyprexa Tab) 1.25 mg Q6H PRN PO 05/21/17 13:45 06/20/17 13:44 05/24/17 08:07 1.25 MG Citalopram Hydrobromide (celeXA TAB) 10 mg DAILY PO 05/22/17 09:00 06/20/17 08:59 05/24/17 08:07 10 MG Miscellaneous Information (Order Awaiting Action) 1 ea QS N/A 05/21/17 16:00 06/20/17 15:59 Olanzapine (Zyprexa Tab) 1.25 mg TID PO 05/24/17 14:00 06/23/17 13:59
[2017-05-24] MEDS ORDERED: CLX20 PO (13:03)
[2017-05-24] MEDS ORDERED: ZYP25 PO (13:03)
--- NOTE | 2017-05-24 13:06 | Discharge Instructions ---
Discharge Instructions Date of Service May 24, 2017. Admission Reason for Admission: Delirium Discharge Discharge Diagnosis / Problem: Delirium on Dementia Discharge Goals Goal(s): Diagnostic testing, Therapeutic intervention Activity Recommendations Activity Level: Assistance Required Therapies: Physical Therapy, Occupational Therapy ALWAYS ASSIST WITH AMBULATION AND FEEDING, FALL PRECAUTIONS, MONITOR CLOSELY- PATIENT GETS OUT OF HIS BED . Additional Information Patient informed of condition: Yes Advance Directives: No (UNKNOWN) DNR: Yes Level of Care: Skilled Communicable Disease: No Prognosis: Improving Linares Catheter: No Instructions / Follow-Up Instructions / Follow-Up ALWAYS ASSIST WITH AMBULATION AND FEEDING, FALL PRECAUTIONS, MONITOR CLOSELY- PATIENT GETS OUT OF HIS BED. PLEASE MONITOR QT INTERVAL ON EKG; PLEASE REFER TO ACCOMPANYING HOSPITAL DISCHARGE SUMMARY FOR FURTHER DETAILS. Current Hospital Diet Patient's current hospital diet: AHA Diet (Heart Healthy) Discharge Diet Recommended Diet: AHA Diet (Heart Healthy) Pending Studies Studies pending at discharge: yes List of pending studies: MONITOR QT INTERVAL ON EKG REGULARLY. Physician Orders On Transfer Special Precautions: PLEASE MONITOR QT INTERVAL ON EKG; PLEASE REFER TO ACCOMPANYING HOSPITAL DISCHARGE SUMMARY FOR FURTHER DETAILS. Medical Emergencies . Who to Call and When: Medical Emergencies: If at any time you feel your situation is an emergency, please call 911 immediately. . Non-Emergent Contact Non-Emergency issues call your: Primary Care Provider . . "Provider Documentation" section prepared by Sonny Odell. . Core Measure Problem Core Measures: None
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
[2017-05-24 13:14] VITALS: BP 126/74; PULSE 56; TEMP 36.8; O2SAT 93
[2017-05-24] MEDS ORDERED: OLANZAPINE 2.5 MG TAB PO SCH (14:00)
== END 2017-05-24 14:36 | DRG 884 ==
LOC: EDBD 19:44 → C.EDC 19:45 → C.MED 05-21 01:50 → ENRESERV 05-21 02:29
PROVIDERS: ADMIT Internal Medicine; ATTEND Internal Medicine
DX: F03.91 Unspecified dementia, unspecified severity, with behavioral disturbance (principal); R41.0 Disorientation, unspecified; N40.0 Benign prostatic hyperplasia without lower urinary tract symptoms; Z66 Do not resuscitate; Z79.82 Long term (current) use of aspirin; Z79.899 Other long term (current) drug therapy

== ENCOUNTER 2017-06-15 13:32 | Emergency (ER) | payer OTHER ==
[~2017-06-15] VITALS: Ht 177.8 cm; Wt 84.7 kg
[~2017-06-15 13:32] MED LIST changes: -CITA20TA9 PO; +CLX20 PO; -MELATAB2 PO; -MIRA1TAB3 PO; -MULT-506 PO; +MULTTAB63 PO; +ZYP25 PO
[2017-06-15 13:50] VITALS: Ht 177.8 cm; Wt 84.7 kg
--- NOTE | 2017-06-15 14:21 | EMERGENCY ROOM VISIT NOTE ---
History Report prepared by Ghislaine: Devika Landry Under the Supervision of: Dr. Oleg Toribio M.D. First contact with patient: 13:57 Chief Complaint: MENTAL HEALTH EVALUATION Stated Complaint: MENTAL HEALTH History of Present Illness The patient is a 81 year old male who presents to the Emergency Room with complaints of increasingly aggressive behavior. He was brought to the ED from [facility], where he currently resides. There is a 302 petition on the patients chart from staff at [facility]. Nursing staff reports the patient has a history of dementia and has been hitting other residents and throwing things at staff. His has POA but only for financial reasons and not medically. The patient states he feels well here in the ED currently. He denies any recent fevers illnesses and states he has no complaints at today's visit. History is limited secondary to the patient's history of dementia. 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 ROS is limited secondary to the patients history of dementia. Past Medical & Surgical Medical Problems: (1) Delirium (2) Dementia (3) Depression (4) History of adenomatous polyp of colon (5) Iron deficiency anemia (6) Macular degeneration Surgical Problems: (1) Status post colonoscopy Family History Blood clots MOTHER (? pulmonary embolism) Myocardial infarction FATHER Social History Smoking Status: Unknown if Ever Smoked Alcohol Use: none Drug Use: none Marital Status: Housing Status: lives with significant other Occupation Status: retired Current/Historical Medications Scheduled Aspirin (Aspirin Ec), 81 MG PO QAM Citalopram (Citalopram Hydrobromide), 10 MG PO DAILY Memantine (Namenda), 10 MG PO BID Multiple Vitamins W/ Minerals (Therems M), 1 TAB PO HS Olanzapine (Olanzapine), 1.25 MG PO TID Tamsulosin Hcl (Flomax), 0.4 MG PO HS Allergies Coded Allergies: Rivastigmine (Verified Allergy, Intermediate, NEURO COMPLICATIONS/RASH, ) Physical Exam Vital Signs Date Time Temp Pulse Resp B/P (MAP) Pulse Ox O2 Delivery O2 Flow Rate FiO2 06/15/17 15:44 97 16 132/82 97 Room Air 06/15/17 13:50 59 18 133/68 96 Room Air Physical Exam GENERAL: Awake, alert to self, otherwise demented, appears to be in no acute distress and is calm and cooperative. HENT: Normocephalic, atraumatic. Oropharynx unremarkable. Dry mucous membranes. EYES: Normal conjunctiva. Sclera non-icteric. NECK: Supple. No nuchal rigidity. FROM. No JVD. RESPIRATORY: Clear to auscultation. CARDIAC: Regular rate, normal rhythm. Extremities warm and well perfused. Pulses equal. ABDOMEN: Soft, non-distended. No tenderness to palpation. No rebound or guarding. No masses. RECTAL: Deferred. MUSCULOSKELETAL: Chest examination reveals no tenderness. The back is symmetrical on inspection without obvious abnormality. There is no CVA tenderness to palpation. No joint edema. LOWER EXTREMITIES: Calves are equal size bilaterally and non-tender. No edema. No discoloration. NEURO: Normal sensorium. No sensory or motor deficits noted. The patient appears neurologically intact. SKIN: No rash or jaundice noted. Medical Decision & Procedures ER Provider Diagnostic Interpretation: Radiology results as stated below per my review and radiologist interpretation: SINGLE VIEW CHEST CLINICAL HISTORY: Mood disorder. FINDINGS: An AP, portable, upright chest radiograph is compared to study dated 05/20/2017. The examination is degraded by portable technique and patient rotation. The heart is mildly enlarged and there is atherosclerotic calcification of the thoracic aorta. The pulmonary vasculature is noncongested. There are left basilar airspace opacities with a small left pleural effusion. Minimal atelectasis is seen at the right lung base. No pneumothorax is seen. The skeletal structures are osteopenic. Degenerative change and scoliosis are noted in the thoracic spine. IMPRESSION: 1. Cardiomegaly without radiographic evidence of congestive failure. 2. There are patchy airspace opacities at the left lung base with a small left pleural effusion. The appearance suggests pneumonia versus aspiration pneumonitis. Clinical correlation will be required and radiographic follow-up to resolution is recommended. Electronically signed by: Dakota Alvarez M.D. 06/15/2017 2:53 PM Laboratory Results 06/15/17 14:33 Red Blood Count 4.59, Mean Corpuscular Volume 90.6, Mean Corpuscular Hemoglobin 30.5, Mean Corpuscular Hemoglobin Concent 33.7, Mean Platelet Volume 11.5, Neutrophils (%) (Auto) 53.4, Lymphocytes (%) (Auto) 33.0, Monocytes (%) (Auto) 5.2, Eosinophils (%) (Auto) 7.6, Basophils (%) (Auto) 0.6, Neutrophils # (Auto) 2.59, Lymphocytes # (Auto) 1.60, Monocytes # (Auto) 0.25, Eosinophils # (Auto) 0.37, Basophils # (Auto) 0.03 06/15/17 14:33 Test 06/15/17 14:33 06/15/17 16:35 White Blood Count 4.85 K/uL (4.8-10.8) Red Blood Count 4.59 M/uL (4.7-6.1) Hemoglobin 14.0 g/dL (14.0-18.0) Hematocrit 41.6 % (42-52) Mean Corpuscular Volume 90.6 fL (80-100) Mean Corpuscular Hemoglobin 30.5 pg (25-34) Mean Corpuscular Hemoglobin Concent 33.7 g/dl (32-36) Platelet Count 148 K/uL (130-400) Mean Platelet Volume 11.5 fL (7.4-10.4) Neutrophils (%) (Auto) 53.4 % Lymphocytes (%) (Auto) 33.0 % Monocytes (%) (Auto) 5.2 % Eosinophils (%) (Auto) 7.6 % Basophils (%) (Auto) 0.6 % Neutrophils # (Auto) 2.59 K/uL (1.4-6.5) Lymphocytes # (Auto) 1.60 K/uL (1.2-3.4) Monocytes # (Auto) 0.25 K/uL (0.11-0.59) Eosinophils # (Auto) 0.37 K/uL (0-0.5) Basophils # (Auto) 0.03 K/uL (0-0.2) RDW Standard Deviation 47.1 fL (36.4-46.3) RDW Coefficient of Variation 14.2 % (11.5-14.5) Immature Granulocyte % (Auto) 0.2 % Immature Granulocyte # (Auto) 0.01 K/uL (0.00-0.02) Anion Gap 4.0 mmol/L (3-11) Est Creatinine Clear Calc Drug Dose 64.6 ml/min Estimated GFR () 90.6 Estimated GFR (Non- 78.2 BUN/Creatinine Ratio 17.0 (10-20) Calcium Level 8.5 mg/dl (8.5-10.1) Total Bilirubin 0.6 mg/dl (0.2-1) Direct Bilirubin 0.2 mg/dl (0-0.2) Aspartate Amino Transf (AST/SGOT) 26 U/L (15-37) Alanine Aminotransferase (ALT/SGPT) 50 U/L (12-78) Alkaline Phosphatase 71 U/L (45-117) Total Protein 6.4 gm/dl (6.4-8.2) Albumin 3.4 gm/dl (3.4-5.0) Thyroid Stimulating Hormone (TSH) 0.799 uIu/ml (0.300-4.500) Ethyl Alcohol mg/dL < 3.0 mg/dl (0-3) Urine Color YELLOW Urine Appearance CLOUDY (CLEAR) Urine pH 8.5 (4.5-7.5) Urine Specific [place] 1.021 (1.000-1.030) Urine Protein NEG (NEG) Urine Glucose (UA) NEG (NEG) Urine Ketones NEG (NEG) Urine Occult Blood NEG (NEG) Urine Nitrite NEG (NEG) Urine Bilirubin NEG (NEG) Urine Urobilinogen NEG (NEG) Urine Leukocyte Esterase NEG (NEG) Urine WBC (Auto) 0 /hpf (0-5) Urine RBC (Auto) 0-4 /hpf (0-4) Urine Hyaline Casts (Auto) 1-5 /lpf (0-5) Urine Epithelial Cells (Auto) 0-5 /lpf (0-5) Urine Bacteria (Auto) NEG (NEG) Urine Opiates Screen NEG (NEG) Urine Methadone, Qualitative NEG (NEG) Urine Barbiturates NEG (NEG) Urine Phencyclidine (PCP) Level NEG (NEG) Ur Amphetamine/Methamphetamine NEG (NEG) MDMA (Ecstasy) Screen NEG (NEG) Urine Benzodiazepines Screen NEG (NEG) Urine Cocaine Metabolite NEG (NEG) Urine Marijuana (THC) NEG (NEG) Laboratory results reviewed by me ECG Indication: other (medical clearance) Rate (beats per minute): 64 Rhythm: sinus rhythm Findings: PVC, no acute ischemic change, left axis deviation Change: no significant change (No change from May 24, 2017) ED Course 1417: The patient was evaluated in room A7. A complete history and physical exam was performed. 183: I discussed the patients case with Alexandro a [employer] representative. He will work on finding placement for the patient. 1845: This patient is a sign out to Dr. Mullins at the end of my shift. Medical Decision I reviewed the patient's past medical history, medications, and the nursing notes as described above. Differential Diagnoses: Etiologies such as worsening dementia, delirium, infection (pulmonary versus urinary) and polypharmacy were considered. The patient is a 81-year-old gentleman with a past medical history of Lewy body dementia who presents from [place] [facility] for worsening behavioral outbursts with aggressive behavior towards staff per history of present illness. On arrival patient is in no acute distress. Afebrile with stable vital signs. Patient is alert to self only otherwise in the department is calm and cooperative. Patient lacks capacity and has no insight into his current situation. On exam has dry mucous membranes but otherwise exam is unremarkable. Considering patient appears to become difficult for his facility to manage will seek [facility] placement. Labs done for medical clearance are unremarkable. UA negative. Medically cleared. [facility] following. [facility] placement pending. Medication Reconcilliation Current Medication List: was personally reviewed by me Blood Pressure Screening Patient's blood pressure: Normal blood pressure Blood pressure disposition: Did not require urgent referral Impression Primary Impression: Dementia Scribe Attestation The scribe's documentation has been prepared under my direction and personally reviewed by me in its entirety. I confirm that the note above accurately reflects all work, treatment, procedures, and medical decision making performed by me. Departure Information Dispostion Still a Patient (This patient is a sign out to Dr. Mullins at the end of my shift) Referrals Alyssa Villanueva D.O. (PCP) Patient Instructions [facility]
[2017-06-15 14:49] LABS: BASO % 0.6 %; BASO ABS # 0.03 K/uL (0-0.2); COMPLETE YES; EOS % 7.6 %; HEMATOCRIT 41.6 % (42-52); IG% 0.2 %; MEAN CELL VOLUME 90.6 fL (80-100); MEAN CORPUSCULAR HEMOGLOBIN 30.5 pg (25-34); MEAN CORPUSCULAR HGB CONC 33.7 g/dl (32-36); MEAN PLATELET VOLUME 11.5 fL (7.4-10.4); MONO % 5.2 %; NEUT % 53.4 %; PLATELET COUNT 148 K/uL (130-400); RED BLOOD COUNT 4.59 M/uL (4.7-6.1); WHITE BLOOD COUNT 4.85 K/uL (4.8-10.8)
--- NOTE | 2017-06-15 14:54 | DIAGNOSTIC IMAGING REPORT ---
SINGLE VIEW CHEST CLINICAL HISTORY: Mood disorder. FINDINGS: An AP, portable, upright chest radiograph is compared to study dated 05/20/2017. The examination is degraded by portable technique and patient rotation. The heart is mildly enlarged and there is atherosclerotic calcification of the thoracic aorta. The pulmonary vasculature is noncongested. There are left basilar airspace opacities with a small left pleural effusion. Minimal atelectasis is seen at the right lung base. No pneumothorax is seen. The skeletal structures are osteopenic. Degenerative change and scoliosis are noted in the thoracic spine. IMPRESSION: 1. Cardiomegaly without radiographic evidence of congestive failure. 2. There are patchy airspace opacities at the left lung base with a small left pleural effusion. The appearance suggests pneumonia versus aspiration pneumonitis. Clinical correlation will be required and radiographic follow-up to resolution is recommended. Electronically signed by: Dakota Alvarez M.D. 06/15/2017 2:53 PM Dictated Date/Time: 06/15/2017 2:52 PM
[2017-06-15 15:13] LABS: CALCIUM 8.5 mg/dl (8.5-10.1); CREATININE 0.91 mg/dl (0.60-1.40); POTASSIUM 4.3 mmol/L (3.5-5.1)
[2017-06-15 15:23] LABS: THYROID STIMULATING HORMONE 0.799 uIu/ml (0.300-4.500)
[2017-06-15 17:41] LABS: BENZODIAZEPINE, URINE NEG (NEG); COCAINE,URINE NEG (NEG); PHENCYCLIDINE, URINE NEG (NEG)
[2017-06-15 17:46] LABS: URINE APPEARANCE CLOUDY (CLEAR); URINE BILIRUBIN NEG (NEG); URINE COLOR YELLOW; URINE EPITHELIAL CELL AUTO 0-5 /lpf (0-5); URINE NITRITE NEG (NEG); URINE PH 8.5 (4.5-7.5); URINE SPECIFIC GRAVITY 1.021 (1.000-1.030); UROBILINOGEN NEG (NEG)
[2017-06-15 17:48] LABS: MANUAL MICROSCOPIC REQUIRED? NO; REVIEW REQ? NO
[2017-06-15] MEDS ORDERED: OLANZAPINE 5 MG TAB PO STA (21:02)
--- NOTE | 2017-06-16 01:55 | EMERGENCY ROOM VISIT NOTE ---
ED Visit Note First contact with patient: 21:03 This patient was initially seen by Dr. de jesus. He was medically cleared by Dr. de jesus and he did fill out a 302 petition. The patient was signed out to me pending placement. He was accepted at [facility] on the condition that he obtain receive a head CT here. A head CT was ordered and did not show any evidence of acute intracranial process. The patient was signed out to Dr. Holbrook.
--- NOTE | 2017-06-16 03:38 | EMERGENCY ROOM VISIT NOTE ---
ED Visit Note First contact with patient: 02:04 This case was signed out to me at change of shift by Dr. Mullins. The patient had a CT scan of the brain which was unremarkable. The patient has been accepted at [facility]. We're awaiting transportation plans. I discussed the case with Dr. Vasquez from the emergency department at [facility]. They are willing to accept the patient in transfer as a 302 to the inpatient psychiatric unit. We are arranging transportation at this time. We will give him his morning medications.
[2017-06-16] MEDS ORDERED: MEMANTINE 10 MG TAB PO STA (03:57)
[2017-06-16] MEDS ORDERED: OLANZAPINE 2.5 MG TAB PO STA (03:57)
[2017-06-16] MEDS ORDERED: ASPIRIN 81 MG CHEW PO STA (03:57)
[2017-06-16] MEDS ORDERED: CITALOPRAM 20 MG TAB PO STA (03:57)
--- NOTE | 2017-06-16 06:39 | DIAGNOSTIC IMAGING REPORT ---
HEAD WITHOUT CONTRAST (CT) CT DOSE: 921.40 mGy.cm HISTORY: Mental status change AMS TECHNIQUE: Multiaxial CT images of the head were performed without the use of intravenous contrast. A dose lowering technique was utilized adhering to the principles of ALARA. Comparison: 02/26/2017 Findings: The paranasal sinuses and mastoid air cells are clear. Age-related chronic small vessel change. Atrophy. Ventricular prominence stable from the prior study. No acute intracranial hemorrhage. Impression: Age-related change. Chronic ventricular prominence. No acute intracranial abnormality. The above report was generated using voice recognition software. It may contain grammatical, syntax or spelling errors. Electronically signed by: Russ Gunderson M.D. 06/16/2017 6:38 AM Dictated Date/Time: 06/16/2017 6:36 AM
[2017-06-16] MEDS ORDERED: HALOPERIDOL 5 MG TAB PO STA (08:46)
[2017-06-16 09:45] VITALS: BP 142/65; PULSE 95; O2SAT 100
== END 2017-06-16 11:00 ==
LOC: C.EDA 13:32 → EDBD 13:32 → C.EDA 06-16 11:00
DX: F03.91 Unspecified dementia, unspecified severity, with behavioral disturbance (principal); I49.3 Ventricular premature depolarization; F32.9 Major depressive disorder, single episode, unspecified; Z86.010 Personal history of colon polyps; Z98.890 Other specified postprocedural states; Z79.82 Long term (current) use of aspirin; Z79.899 Other long term (current) drug therapy; Z88.8 Allergy status to other drugs, medicaments and biological substances; Z82.49 Family history of ischemic heart disease and other diseases of the circulatory system; Z83.2 Family history of diseases of the blood and blood-forming organs and certain disorders involving the immune mechanism

== ENCOUNTER 2017-07-05 06:38 | Emergency (ER) | payer OTHER ==
[~2017-07-05] VITALS: Ht 175.3 cm; Wt 82.5 kg
[2017-07-05 06:40] VITALS: Ht 175.3 cm; Wt 82.5 kg
[2017-07-05] MEDS ORDERED: SODIUM CHLORIDE 0.9% 1000ML 1,000 ML IV STA (06:47)
[2017-07-05] MEDS ORDERED: DIVA1CAP PO (07:00)
[2017-07-05] MEDS ORDERED: CITA10TA4 PO (07:00)
[2017-07-05] MEDS ORDERED: ATV1 PO (07:00)
[2017-07-05] MEDS ORDERED: ZYP5 PO (07:03)
[2017-07-05] MEDS ORDERED: BUSP5TAB59 PO (07:03)
[2017-07-05] MEDS ORDERED: TRAZ50TA35 PO (07:04)
[2017-07-05] MEDS ORDERED: POLY335019 PO (07:04)
[2017-07-05] MEDS ORDERED: MELATAB2 PO (07:04)
--- NOTE | 2017-07-05 08:16 | DIAGNOSTIC IMAGING REPORT ---
SINGLE VIEW CHEST CLINICAL HISTORY: Weakness. Change in mental status. Dementia. FINDINGS: An AP, portable, upright chest radiograph is compared to study dated 06/15/2017. The examination is degraded by portable technique and patient rotation. The heart is enlarged and there is atherosclerotic calcification of the thoracic aorta. The pulmonary vasculature is noncongested. There are left basilar airspace opacities with a small left pleural effusion. Minimal atelectasis is seen at the right lung base. No pneumothorax is seen. The skeletal structures are osteopenic. Degenerative change and scoliosis are noted in the thoracic spine. IMPRESSION: 1. Cardiomegaly without radiographic evidence of congestive failure. 2. There are patchy airspace opacities at the left lung base with a small left pleural effusion. This is similar to the 06/15/2017 examination and clinical correlation will be required. Electronically signed by: Dakota Alvarez M.D. 07/05/2017 8:14 AM Dictated Date/Time: 07/05/2017 8:13 AM
[2017-07-05 08:38] LABS: BASO % 0.4 %; BASO ABS # 0.02 K/uL (0-0.2); COMPLETE YES; EOS % 9.7 %; HEMATOCRIT 43.4 % (42-52); IG% 0.4 %; LYMPH % 29.9 %; LYMPH ABS # 1.63 K/uL (1.2-3.4); MEAN CELL VOLUME 93.1 fL (80-100); MEAN CORPUSCULAR HEMOGLOBIN 29.6 pg (25-34); MEAN CORPUSCULAR HGB CONC 31.8 g/dl (32-36); MEAN PLATELET VOLUME 12.2 fL (7.4-10.4); MONO % 7.3 %; NEUT % 52.3 %; PLATELET COUNT 160 K/uL (130-400); RED BLOOD COUNT 4.66 M/uL (4.7-6.1); WHITE BLOOD COUNT 5.45 K/uL (4.8-10.8)
--- NOTE | 2017-07-05 08:44 | DIAGNOSTIC IMAGING REPORT ---
CT SCAN OF THE BRAIN WITHOUT IV CONTRAST CLINICAL HISTORY: Change in mental status. Weakness. COMPARISON STUDY: CT of the brain dated 06/16/2017. TECHNIQUE: Unenhanced axial CT scan of the brain is performed from the vertex to the skull base. CT DOSE: 788.63 mGycm FINDINGS: Brain parenchyma: There are age-related involutional changes noting moderate subcortical and periventricular microangiopathic change. There is no hemorrhage, mass effect, or evidence of acute territorial ischemia by CT criteria. June-white matter is preserved. No extra-axial fluid collection is seen. Ventricles, sulci, cisterns: Prominent secondary to involutional change. Intracranial vasculature: There is atherosclerotic calcification of the cavernous carotid and vertebral arteries. Calvarium: Unremarkable. Sinuses and mastoids: Trace mucosal thickening is seen in the right maxillary antrum. The remaining visualized paranasal sinuses are clear. The mastoid air cells are well pneumatized. Orbits: The bony orbits are grossly intact. There are bilateral ocular lens implants. IMPRESSION: Senescent changes as above with no hemorrhage, mass effect, or evidence of acute territorial ischemia by CT criteria. Electronically signed by: Dakota Alvarez M.D. 07/05/2017 8:43 AM Dictated Date/Time: 07/05/2017 8:40 AM
[2017-07-05 08:46] LABS: PARTIAL THROMBOPLASTIN RATIO 1.1; PROTHROMBIN TIME (PATIENT) 11.2 SECONDS (9.0-12.0)
[2017-07-05 08:49] LABS: BUN/CREATININE RATIO 17.3 (10-20); CALCIUM 8.7 mg/dl (8.5-10.1); CREATININE 0.86 mg/dl (0.60-1.40)
[2017-07-05 09:00] LABS: THYROID STIMULATING HORMONE 1.05 uIu/ml (0.300-4.500)
--- NOTE | 2017-07-05 09:36 | EMERGENCY ROOM VISIT NOTE ---
History Report prepared by Ghislaine: Farida Velazquez Under the Supervision of: Dr. Angel Mccall D.O. First contact with patient: 06:47 Chief Complaint: OTHER COMPLAINT Stated Complaint: WORSENING DEMENTIA History of Present Illness The patient is an 81 year old male who presents to the Emergency Room with complaints of not sleeping well last night and aggressive behavior. The patient was brought in by the . The states that the patient was somewhat aggressive. He attempted pushing her off of the bed. He also did not sleep through the night. She states that she is concerned about his behavior. He does have advanced dementia. He has had similar behavior in the past. She does not feel that there is a medical problem but she would like the patient to be placed. The patient was at [facility] unit for 12 days and was discharged about a week ago. They, according to the , attempted to find placement for the patient at 6 if her locations but were unable to find placement for the patient. He was discharged home. He was started on Depakote. Source of History: patient, spouse/significant other () Onset: last night Position: other (not sleeping well) Note: associated symptoms: aggressive behavior Review of Systems As above otherwise negative for 10 systems Past Medical & Surgical Medical Problems: (1) Delirium (2) Dementia (3) Depression (4) History of adenomatous polyp of colon (5) Iron deficiency anemia (6) Macular degeneration Surgical Problems: (1) Status post colonoscopy Family History Blood clots MOTHER (? pulmonary embolism) Myocardial infarction FATHER Social History Smoking Status: Never Smoker Alcohol Use: none Drug Use: none Marital Status: Housing Status: lives with significant other Occupation Status: retired Current/Historical Medications Scheduled Aspirin (Aspirin Ec), 81 MG PO QAM Citalopram Hydrobromide (Citalopram Hydrobromide), 10 MG PO DAILY Divalproex Sodium (Divalproex Sodium), 250 MG PO TID Multiple Vitamins W/ Minerals (Therems M), 1 TAB PO HS Olanzapine (Olanzapine), 5 MG PO HS Tamsulosin Hcl (Flomax), 0.4 MG PO HS Scheduled PRN Lorazepam (Lorazepam), 1 MG PO UD PRN for Anxiety/Agitation Melatonin (Melatonin Maximum Strengt), 1 TAB PO HS PRN for Sleep Polyethylene Glycol 3350 (Miralax), 17 GM PO DAILY PRN for Constipation Trazodone Hcl (Trazodone), 25 MG PO HS PRN for Sleep Allergies Coded Allergies: Rivastigmine (Verified Allergy, Intermediate, NEURO COMPLICATIONS/RASH, 07/05/17) Physical Exam Vital Signs Date Time Temp Pulse Resp B/P (MAP) Pulse Ox O2 Delivery O2 Flow Rate FiO2 07/05/17 12:09 56 20 142/67 94 Room Air 07/05/17 11:12 58 20 07/05/17 10:32 53 07/05/17 10:18 52 18 07/05/17 08:09 53 18 168/78 07/05/17 06:46 51 07/05/17 06:40 36.5 54 15 164/87 94 Room Air Physical Exam CONSTITUTIONAL/VITAL SIGNS: Reviewed / noted above. GENERAL: Non-toxic in appearance. INTEGUMENTARY: Warm, dry, and [place]. HEAD: Normocephalic. EYES: without scleral icterus or trauma. ENT/OROPHARYNX: clear and moist. LYMPHADENOPATHY/NECK: Is supple without lymphadenopathy or meningismus. RESPIRATORY: Lungs clear and equal. CARDIOVASCULAR: Regular rate and rhythm. GI/ABDOMEN: Soft and nontender. No organomegaly or pulsatile mass. No rebound or guarding. Normal bowel sounds. EXTREMITIES: Warm and well perfused. BACK: No CVA tenderness. NEUROLOGICAL: The patient is awake, alert and chronically confused. PSYCHIATRIC: normal affect. Patient is currently not aggressive. MUSCULOSKELETAL: Normally developed with good muscle tone. TRIAGE NURSING DOCUMENTATION REVIEWED. Medical Decision & Procedures ER Provider Diagnostic Interpretation: Radiology results as stated below per my review and radiologist interpretation: CT SCAN OF THE BRAIN WITHOUT IV CONTRAST CLINICAL HISTORY: Change in mental status. Weakness. COMPARISON STUDY: CT of the brain dated 06/16/2017. TECHNIQUE: Unenhanced axial CT scan of the brain is performed from the vertex to the skull base. CT DOSE: 788.63 mGycm FINDINGS: Brain parenchyma: There are age-related involutional changes noting moderate subcortical and periventricular microangiopathic change. There is no hemorrhage, mass effect, or evidence of acute territorial ischemia by CT criteria. June-white matter is preserved. No extra-axial fluid collection is seen. Ventricles, sulci, cisterns: Prominent secondary to involutional change. Intracranial vasculature: There is atherosclerotic calcification of the cavernous carotid and vertebral arteries. Calvarium: Unremarkable. Sinuses and mastoids: Trace mucosal thickening is seen in the right maxillary antrum. The remaining visualized paranasal sinuses are clear. The mastoid air cells are well pneumatized. Orbits: The bony orbits are grossly intact. There are bilateral ocular lens implants. IMPRESSION: Senescent changes as above with no hemorrhage, mass effect, or evidence of acute territorial ischemia by CT criteria. Electronically signed by: Dakota Alvarez M.D. 07/05/2017 8:43 AM Dictated Date/Time: 07/05/2017 8:40 AM SINGLE VIEW CHEST CLINICAL HISTORY: Weakness. Change in mental status. Dementia. FINDINGS: An AP, portable, upright chest radiograph is compared to study dated 06/15/2017. The examination is degraded by portable technique and patient rotation. The heart is enlarged and there is atherosclerotic calcification of the thoracic aorta. The pulmonary vasculature is noncongested. There are left basilar airspace opacities with a small left pleural effusion. Minimal atelectasis is seen at the right lung base. No pneumothorax is seen. The skeletal structures are osteopenic. Degenerative change and scoliosis are noted in the thoracic spine. IMPRESSION: 1. Cardiomegaly without radiographic evidence of congestive failure. 2. There are patchy airspace opacities at the left lung base with a small left pleural effusion. This is similar to the 06/15/2017 examination and clinical correlation will be required. Electronically signed by: Dakota Alvarez M.D. 07/05/2017 8:14 AM Dictated Date/Time: 07/05/2017 8:13 AM Laboratory Results 07/05/17 07:50 Red Blood Count 4.66, Mean Corpuscular Volume 93.1, Mean Corpuscular Hemoglobin 29.6, Mean Corpuscular Hemoglobin Concent 31.8, Mean Platelet Volume 12.2, Neutrophils (%) (Auto) 52.3, Lymphocytes (%) (Auto) 29.9, Monocytes (%) (Auto) 7.3, Eosinophils (%) (Auto) 9.7, Basophils (%) (Auto) 0.4, Neutrophils # (Auto) 2.85, Lymphocytes # (Auto) 1.63, Monocytes # (Auto) 0.40, Eosinophils # (Auto) 0.53, Basophils # (Auto) 0.02 07/05/17 07:50 Test 07/05/17 07:41 07/05/17 07:50 07/05/17 13:15 Valproic Acid (Depakene) Level 55 mcg/ml (50-100) White Blood Count 5.45 K/uL (4.8-10.8) Red Blood Count 4.66 M/uL (4.7-6.1) Hemoglobin 13.8 g/dL (14.0-18.0) Hematocrit 43.4 % (42-52) Mean Corpuscular Volume 93.1 fL (80-100) Mean Corpuscular Hemoglobin 29.6 pg (25-34) Mean Corpuscular Hemoglobin Concent 31.8 g/dl (32-36) Platelet Count 160 K/uL (130-400) Mean Platelet Volume 12.2 fL (7.4-10.4) Neutrophils (%) (Auto) 52.3 % Lymphocytes (%) (Auto) 29.9 % Monocytes (%) (Auto) 7.3 % Eosinophils (%) (Auto) 9.7 % Basophils (%) (Auto) 0.4 % Neutrophils # (Auto) 2.85 K/uL (1.4-6.5) Lymphocytes # (Auto) 1.63 K/uL (1.2-3.4) Monocytes # (Auto) 0.40 K/uL (0.11-0.59) Eosinophils # (Auto) 0.53 K/uL (0-0.5) Basophils # (Auto) 0.02 K/uL (0-0.2) RDW Standard Deviation 47.5 fL (36.4-46.3) RDW Coefficient of Variation 13.9 % (11.5-14.5) Immature Granulocyte % (Auto) 0.4 % Immature Granulocyte # (Auto) 0.02 K/uL (0.00-0.02) Prothrombin Time 11.2 SECONDS (9.0-12.0) Prothromb Time International Ratio 1.0 (0.9-1.1) Activated Partial Thromboplast Time 29.0 SECONDS (21.0-31.0) Partial Thromboplastin Ratio 1.1 Anion Gap 5.0 mmol/L (3-11) Est Creatinine Clear Calc Drug Dose 66.3 ml/min Estimated GFR () 93.6 Estimated GFR (Non- 80.8 BUN/Creatinine Ratio 17.3 (10-20) Calcium Level 8.7 mg/dl (8.5-10.1) Total Bilirubin 0.4 mg/dl (0.2-1) Direct Bilirubin 0.1 mg/dl (0-0.2) Aspartate Amino Transf (AST/SGOT) 15 U/L (15-37) Alanine Aminotransferase (ALT/SGPT) 21 U/L (12-78) Alkaline Phosphatase 62 U/L (45-117) Total Protein 6.1 gm/dl (6.4-8.2) Albumin 3.1 gm/dl (3.4-5.0) Thyroid Stimulating Hormone (TSH) 1.050 uIu/ml (0.300-4.500) Urine Color YELLOW Urine Appearance CLEAR (CLEAR) Urine pH 7.5 (4.5-7.5) Urine Specific [place] 1.021 (1.000-1.030) Urine Protein NEG (NEG) Urine Glucose (UA) NEG (NEG) Urine Ketones NEG (NEG) Urine Occult Blood NEG (NEG) Urine Nitrite NEG (NEG) Urine Bilirubin NEG (NEG) Urine Urobilinogen NEG (NEG) Urine Leukocyte Esterase NEG (NEG) Urine WBC (Auto) 1-5 /hpf (0-5) Urine RBC (Auto) 0-4 /hpf (0-4) Urine Hyaline Casts (Auto) 1-5 /lpf (0-5) Urine Epithelial Cells (Auto) 5-10 /lpf (0-5) Urine Bacteria (Auto) NEG (NEG) Laboratory results as stated above per my review. ECG Indication: other (not sleeping well) Rate (beats per minute): 53 Rhythm: sinus bradycardia Findings: no acute ischemic change, no ectopy ED Course 0647: Previous medical records were reviewed. The patient was evaluated in room B6. A complete history and physical examination was performed. Ordered Sodium Chloride 1000 ml @ 999 mls/hr. 0936: Per Case management, the patient's case will be reviewed by Hannah Grider. 1128: Per Case management the patient will be evaluated by mental health. 1331: Per the Psych Petroleum Production Engineer, the patient is being referred to facilities. 1343: I reevaluated the patient and he is resting. I discussed all the exam findings with the patients family and I discussed the treatment plan. They verbalized complete understanding and agreement. The patient will be discharged home. 1437: Per the gearcase assembler, the patients ride has arrived and they do not feel safe taking the patient home. 1438: I reevaluated the patient at this time and he is resting. I reiterated the treatment plan. They are requesting that we speak to a facility in [place] about taking the patient. Medical Decision Differential includes acute coronary syndrome, myocardial infarction, CVA, TIA, anemia, infection, pneumonia, UTI, pyelonephritis, poor nutrition, dehydration, electrolyte disturbance,hypoglycemia. The patient is a 81 year old male who presents to the Emergency Room with complaints of not sleeping well last night and aggressive behavior. The patient was brought in by the . The states that the patient was somewhat aggressive. He attempted pushing her off of the bed. He also did not sleep through the night. She states that she is concerned about his behavior. He does have advanced dementia. He has had similar behavior in the past. She does not feel that there is a medical problem but she would like the patient to be placed. The patient was at [facility] unit for 12 days and was discharged about a week ago. They, according to the , attempted to find placement for the patient at 6 if her locations but were unable to find placement for the patient. He was discharged home. He was started on Depakote by them. . The patient's exam today was unremarkable. He appears to be somewhat drowsy and is sleeping as of his stay in the emergency department. When he is awake, he is not aggressive and was did not verbalize any complaints. A twelve-lead EKG reveals a sinus bradycardia. Chest x-ray and CT scan of the brain were negative for acute disease. CBC is unremarkable, complete metabolic panel is normal, TSH is normal, valproate level was within normal limits. After discussing at length with the the possibility of patient placement, the had various requests with regard to placement. She did not want to go to the [facility], another facility and feels work was too far, another facility cost too much money. The patient has specific requests that make it difficult for us to help her with dementia unit and placement. The patient has never been aggressive here during his emergency department stay. She did have a facility in [place] accept him on a few days ago. She was supposed to take him there tomorrow. She also has follow-up with her PCP tomorrow. We did have other recommendations, such as carrying home health nurse at nighttime to help with his care. She reports that this would cause her not to have any privacy at home if someone else is at the home helping her . The patient is felt to be stable for discharge. hotbed transfer operator have been involved with the patient's care during the patient's entire stay. We did place a referral to the geriatric psych unit in [place] but they did not feel he required psychiatric care. This was done primarily for the . There is no acute psychiatric issue at this time based on my evaluation of the patient. Medication Reconcilliation Current Medication List: was personally reviewed by me Blood Pressure Screening Patient's blood pressure: Elevated blood pressure Blood pressure disposition: Elevated BP felt to be situational, Did not require urgent referral Impression Primary Impression: Dementia Scribe Attestation The scribe's documentation has been prepared under my direction and personally reviewed by me in its entirety. I confirm that the note above accurately reflects all work, treatment, procedures, and medical decision making performed by me. Departure Information Dispostion Home / Self-Care Referrals Alyssa Villanueva D.O. (PCP) Patient Instructions My [facility] Additional Instructions Follow-up with your doctor and/or psychiatrist for further evaluation of your symptoms.
[2017-07-05 13:50] LABS: URINE APPEARANCE CLEAR (CLEAR); URINE BILIRUBIN NEG (NEG); URINE COLOR YELLOW; URINE NITRITE NEG (NEG); URINE PH 7.5 (4.5-7.5); URINE SPECIFIC GRAVITY 1.021 (1.000-1.030); UROBILINOGEN NEG (NEG); ZZUR CULT IF INDIC CLEAN CATCH NO
[2017-07-05 13:51] LABS: MANUAL MICROSCOPIC REQUIRED? NO; REVIEW REQ? NO
[2017-07-05 15:20] VITALS: BP 142/67; PULSE 56; TEMP 36.5; O2SAT 94
== END 2017-07-05 15:23 | disposition home or self-care (01) ==
LOC: EDBD 06:38 → C.EDB 06:38 → C.EDA 15:23
DX: F03.90 Unspecified dementia, unspecified severity, without behavioral disturbance, psychotic disturbance, mood disturbance, and anxiety (principal); F32.9 Major depressive disorder, single episode, unspecified; D50.9 Iron deficiency anemia, unspecified; Z86.010 Personal history of colon polyps; Z98.890 Other specified postprocedural states; Z79.82 Long term (current) use of aspirin; Z79.899 Other long term (current) drug therapy; Z88.8 Allergy status to other drugs, medicaments and biological substances; Z82.49 Family history of ischemic heart disease and other diseases of the circulatory system; Z83.2 Family history of diseases of the blood and blood-forming organs and certain disorders involving the immune mechanism

== ENCOUNTER 2017-11-11 16:00 | Inpatient (IN) | payer OTHER ==
[~2017-11-11] VITALS: Ht 152.4 cm; Wt 73.6 kg
[~2017-11-11 16:00] MED LIST changes: +ATV1 UT; +CITA10TA4 PO; -CLX20 PO; +DIVA1CAP PO; +MELATAB2 PO; -NMN10 PO; +POLY335019 PO; +TRAZ50TA35 PO; -ZYP25 PO; +ZYP5 PO
[2017-11-11] MEDS ORDERED: RBN1 PO (17:09)
[2017-11-11] MEDS ORDERED: ACET650S10 PR (17:09)
[2017-11-11] MEDS ORDERED: XRL15 PO (17:09)
[2017-11-11] MEDS ORDERED: PROM25TA9 PO (17:09)
[2017-11-11] MEDS ORDERED: ACET325T96 PO (17:09)
[2017-11-11] MEDS ORDERED: DIAZ-165 PO (17:09)
[2017-11-11] MEDS ORDERED: MORP10SO PO (17:09)
[2017-11-11] MEDS ORDERED: OLAN-80 PO (17:09)
[2017-11-11] MEDS ORDERED: SODIUM CHLORIDE 0.9% 500ML 500 ML IV STA (17:24)
[2017-11-11 19:00] LABS: BASO % 0.2 %; BASO ABS # 0.02 K/uL (0-0.2); EOS % 0.9 %; EOS ABS # 0.11 K/uL (0-0.5); HEMOGLOBIN 10.7 g/dL (14.0-18.0); IG# 0.04 K/uL (0.00-0.02); LYMPH % 15.3 %; LYMPH ABS # 1.97 K/uL (1.2-3.4); MEAN CELL VOLUME 92.2 fL (80-100); MEAN CORPUSCULAR HEMOGLOBIN 29.9 pg (25-34); MEAN CORPUSCULAR HGB CONC 32.4 g/dl (32-36); MEAN PLATELET VOLUME 9.7 fL (7.4-10.4); MONO % 5.2 %; MONO ABS # 0.67 K/uL (0.11-0.59); NEUT % 78.1 %; NEUT ABS # 10.03 K/uL (1.4-6.5); PLATELET COUNT 356 K/uL (130-400); RED CELL DISTRIBUTION WIDTH CV 14.9 % (11.5-14.5); RED CELL DISTRIBUTION WIDTH SD 50.3 fL (36.4-46.3); WHITE BLOOD COUNT 12.84 K/uL (4.8-10.8)
--- NOTE | 2017-11-11 19:07 | DIAGNOSTIC IMAGING REPORT ---
CHEST ONE VIEW PORTABLE CLINICAL HISTORY: ams chest pain COMPARISON STUDY: N2 2017 FINDINGS: Minimal parenchymal infiltrate left base. Lungs otherwise appear clear. Diaphragms smooth. IMPRESSION: Minimal parenchymal infiltrate left base. The above report was generated using voice recognition software. It may contain grammatical, syntax or spelling errors. Electronically signed by: Russ Gunderson M.D. 11/11/2017 7:06 PM Dictated Date/Time: 11/11/2017 7:05 PM
--- NOTE | 2017-11-11 19:09 | DIAGNOSTIC IMAGING REPORT ---
L FOOT 2 VIEWS CLINICAL HISTORY: PRESSURE WOULD infection COMPARISON: None. DISCUSSION: Generalized degenerative change. Mild generalized osteopenia. Small heel spur. No evidence for lytic or blastic process. Mild generalized soft tissue edema. IMPRESSION: Mild generalized soft tissue edema. Moderate degenerative change. Osteopenia. The above report was generated using voice recognition software. It may contain grammatical, syntax or spelling errors. Electronically signed by: Russ Gunderson M.D. 11/11/2017 7:07 PM Dictated Date/Time: 11/11/2017 7:06 PM
--- NOTE | 2017-11-11 19:10 | DIAGNOSTIC IMAGING REPORT ---
R FOOT 2 VIEWS CLINICAL HISTORY: PRESSURE WOUND infection COMPARISON: None. DISCUSSION: Generalized degenerative change. Osteopenia. No lytic or blastic process. There is no evidence for soft tissue swelling. IMPRESSION: Degenerative change. Osteopenia. The above report was generated using voice recognition software. It may contain grammatical, syntax or spelling errors. Electronically signed by: Russ Gunderson M.D. 11/11/2017 7:09 PM Dictated Date/Time: 11/11/2017 7:08 PM
--- NOTE | 2017-11-11 19:23 | DIAGNOSTIC IMAGING REPORT ---
HEAD WITHOUT CONTRAST (CT) CT DOSE: 712.55 mGy.cm HISTORY: Mental status change ams TECHNIQUE: Multiaxial CT images of the head were performed without the use of intravenous contrast. A dose lowering technique was utilized adhering to the principles of ALARA. Comparison: 09/01/2017 Findings: The paranasal sinuses and mastoid air cells are clear. Atrophy. Considerable chronic small vessel change. Moderate compensatory prominence of the ventricular system. No acute intracranial hemorrhage. No midline shift. Impression: Chronic and age-related change. No acute intracranial abnormality. The above report was generated using voice recognition software. It may contain grammatical, syntax or spelling errors. Electronically signed by: Russ Gunderson M.D. 11/11/2017 7:22 PM Dictated Date/Time: 11/11/2017 7:20 PM
[2017-11-11 19:37] LABS: CALCIUM 8.6 mg/dl (8.5-10.1); CREATININE 0.69 mg/dl (0.60-1.40); POTASSIUM 4.1 mmol/L (3.5-5.1)
[2017-11-11] MEDS ORDERED: VANCOMYCIN 1GM/270ML NSS IV STA (19:56)
--- NOTE | 2017-11-11 21:02 | EMERGENCY ROOM VISIT NOTE ---
History Report prepared by Ghislaine: Jourdan Hernandez Under the Supervision of: Dr. Rahat Reyna M.D. First contact with patient: 17:04 Chief Complaint: WOUND INFECTION Stated Complaint: PRESSURE WOUNDS/ BUTTOCKS,ANKLES/ [place] Nursing Triage Summary: Patient from personal group home. Patient was on hospice but released to be treated for gangrenous ulcers of lower coccyx area and bilateral feet. Coccyx area with blackened eschar and open area around this. Patient upon arrival had a large BM. Bilateral heels have blackened scabbed areas with redness around these areas. History of Present Illness The patient is a 82 year old male who presents to the Emergency Room by EMS for worsening wound infections. HPI limited secondary to dementia. Source of History: nursing staff History Limited By: dementia Position: other (coccyx and bilateral heels) Quality: other (wound infections) Timing: worsening Associated Symptoms: No fevers Review of Systems ROS limited secondary to dementia. Past Medical & Surgical Medical Problems: (1) BPH (benign prostatic hyperplasia) (2) Delirium (3) Dementia (4) Depression (5) Fall (6) History of adenomatous polyp of colon (7) Iron deficiency anemia (8) Macular degeneration Surgical Problems: (1) Hx of cataract surgery (2) Status post colonoscopy Family History Blood clots MOTHER (? pulmonary embolism) Myocardial infarction FATHER Social History Smoking Status: Unknown if Ever Smoked Alcohol Use: none Drug Use: none Marital Status: Housing Status: lives with significant other Occupation Status: retired Current/Historical Medications Scheduled Morphine Sulfate (Morphine Sulfate), 0.25-0.5 ML PO Q1H Olanzapine (Zyprexa), 2.5 MG PO HS Rivaroxaban (Xarelto), 1 TAB PO DAILY Tamsulosin Hcl (Flomax), 0.4 MG PO HS Scheduled PRN Acetaminophen (Tylenol), 650 MG GA Q4 PRN for Pain Acetaminophen Tab (Tylenol), 650 MG PO Q4 PRN for Pain Diazepam (Valium), 5 MG PO Q6 PRN for Anxiety Glycopyrrolate (Glycopyrrolate), 1-2 TABS PO Q4 PRN for ACID Lorazepam (Lorazepam), 1 MG UT Q4 PRN for Anxiety/Agitation Promethazine Hcl (Phenergan), 25 MG PO Q6H PRN for Nausea Trazodone Hcl (Trazodone), 50 MG PO HS PRN for Agitation Allergies Coded Allergies: Rivastigmine (Verified Allergy, Intermediate, NEURO COMPLICATIONS/RASH, 07/05/17) Physical Exam Vital Signs Date Time Temp Pulse Resp B/P (MAP) Pulse Ox O2 Delivery O2 Flow Rate FiO2 11/11/17 19:49 37.4 117 18 156/99 100 Room Air 11/11/17 18:51 108 22 175/96 100 Room Air 11/11/17 18:26 111 26 173/147 100 Room Air 11/11/17 16:42 36.3 98 26 113/79 91 Room Air 11/11/17 16:26 93 Physical Exam GENERAL: Chronically ill-appearing, in no distress. EYES: Normal conjunctiva. Sclera non-icteric. PERRL bilaterally. RESPIRATORY: Rhonchi bilaterally. CARDIAC: Regular rate, normal rhythm. Extremities warm and well perfused. Equal palpable radial pulses to the bilateral upper extremities. Equal palpable DP pulses to the bilateral lower extremities. ABDOMEN: Soft, non-distended. No tenderness to palpation. No rebound or guarding. No masses. Rovsig Negative. RECTAL: Deferred. MUSCULOSKELETAL: Chest examination reveals no tenderness. The back is symmetrical on inspection without obvious abnormality.No joint edema. Rigid extremities. LOWER EXTREMITIES: Calves are equal size bilaterally and non-tender. SKIN: Stage 2 ulcer to the right heel with necrotic area. Stage 1 ulcer to the left heel. Stage 3-4 bed sore to the coccyx. Medical Decision & Procedures ER Provider Diagnostic Interpretation: Radiology results as stated below per my review and radiologist interpretation: HEAD WITHOUT CONTRAST (CT) Findings: The paranasal sinuses and mastoid air cells are clear. Atrophy. Considerable chronic small vessel change. Moderate compensatory prominence of the ventricular system. No acute intracranial hemorrhage. No midline shift. Impression: Chronic and age-related change. No acute intracranial abnormality. The above report was generated using voice recognition software. It may contain grammatical, syntax or spelling errors. Electronically signed by: Russ Gunderson M.D. 11/11/2017 7:22 PM CHEST ONE VIEW PORTABLE FINDINGS: Minimal parenchymal infiltrate left base. Lungs otherwise appear clear. Diaphragms smooth. IMPRESSION: Minimal parenchymal infiltrate left base. The above report was generated using voice recognition software. It may contain grammatical, syntax or spelling errors. Electronically signed by: Russ Gunderson M.D. 11/11/2017 7:06 PM L FOOT 2 VIEWS DISCUSSION: Generalized degenerative change. Mild generalized osteopenia. Small heel spur. No evidence for lytic or blastic process. Mild generalized soft tissue edema. IMPRESSION: Mild generalized soft tissue edema. Moderate degenerative change. Osteopenia. The above report was generated using voice recognition software. It may contain grammatical, syntax or spelling errors. Electronically signed by: Russ Gunderson M.D. 11/11/2017 7:07 PM R FOOT 2 VIEWS IMPRESSION: Degenerative change. Osteopenia. The above report was generated using voice recognition software. It may contain grammatical, syntax or spelling errors. Electronically signed by: Russ Gunderson M.D. 11/11/2017 7:09 PM Laboratory Results 11/11/17 18:37 Red Blood Count 3.58, Mean Corpuscular Volume 92.2, Mean Corpuscular Hemoglobin 29.9, Mean Corpuscular Hemoglobin Concent 32.4, Mean Platelet Volume 9.7, Neutrophils (%) (Auto) 78.1, Lymphocytes (%) (Auto) 15.3, Monocytes (%) (Auto) 5.2, Eosinophils (%) (Auto) 0.9, Basophils (%) (Auto) 0.2, Neutrophils # (Auto) 10.03, Lymphocytes # (Auto) 1.97, Monocytes # (Auto) 0.67, Eosinophils # (Auto) 0.11, Basophils # (Auto) 0.02 11/11/17 18:37 Test 11/11/17 18:25 11/11/17 18:37 11/11/17 20:04 Urine Color DK YELLOW Urine Appearance CLOUDY (CLEAR) Urine pH 7.5 (4.5-7.5) Urine Specific [place] 1.022 (1.000-1.030) Urine Protein NEG (NEG) Urine Glucose (UA) NEG (NEG) Urine Ketones TRACE (NEG) Urine Occult Blood NEG (NEG) Urine Nitrite NEG (NEG) Urine Bilirubin NEG (NEG) Urine Urobilinogen POS (NEG) Urine Leukocyte Esterase TRACE (NEG) Urine WBC (Auto) 1-5 /hpf (0-5) Urine RBC (Auto) 0-4 /hpf (0-4) Urine Hyaline Casts (Auto) 0 /lpf (0-5) Urine Epithelial Cells (Auto) 5-10 /lpf (0-5) Urine Bacteria (Auto) 4+ (NEG) White Blood Count 12.84 K/uL (4.8-10.8) Red Blood Count 3.58 M/uL (4.7-6.1) Hemoglobin 10.7 g/dL (14.0-18.0) Hematocrit 33.0 % (42-52) Mean Corpuscular Volume 92.2 fL (80-100) Mean Corpuscular Hemoglobin 29.9 pg (25-34) Mean Corpuscular Hemoglobin Concent 32.4 g/dl (32-36) Platelet Count 356 K/uL (130-400) Mean Platelet Volume 9.7 fL (7.4-10.4) Neutrophils (%) (Auto) 78.1 % Lymphocytes (%) (Auto) 15.3 % Monocytes (%) (Auto) 5.2 % Eosinophils (%) (Auto) 0.9 % Basophils (%) (Auto) 0.2 % Neutrophils # (Auto) 10.03 K/uL (1.4-6.5) Lymphocytes # (Auto) 1.97 K/uL (1.2-3.4) Monocytes # (Auto) 0.67 K/uL (0.11-0.59) Eosinophils # (Auto) 0.11 K/uL (0-0.5) Basophils # (Auto) 0.02 K/uL (0-0.2) RDW Standard Deviation 50.3 fL (36.4-46.3) RDW Coefficient of Variation 14.9 % (11.5-14.5) Immature Granulocyte % (Auto) 0.3 % Immature Granulocyte # (Auto) 0.04 K/uL (0.00-0.02) Anion Gap 8.0 mmol/L (3-11) Est Creatinine Clear Calc Drug Dose 78.5 ml/min Estimated GFR () 101.8 Estimated GFR (Non- 87.8 BUN/Creatinine Ratio 22.7 (10-20) Calcium Level 8.6 mg/dl (8.5-10.1) Magnesium Level 2.4 mg/dl (1.8-2.4) Bedside Lactic Acid Venous 2.22 mmol/L (0.90-1.70) Laboratory results reviewed by me Medications Administered Medications (Trade) Dose Ordered Sig/Amos Route Start Time Stop Time Status Last Admin Dose Admin Sodium Chloride 500 ml @ 100 mls/hr Q5H STAT IV 11/11/17 17:24 11/11/17 22:23 DC 11/11/17 17:24 100 MLS/HR Vancomycin HCl (Vancomycin 1gm/ 270ml Nss) 1 gm NOW STAT IV 11/11/17 19:56 11/11/17 19:58 DC 11/11/17 20:09 1 GM ECG Indication: altered mental status Rate (beats per minute): 92 Rhythm: normal sinus (baseline artifact due to patient unable to stop moving) Findings: PVC, no acute ischemic change ED Course 1713: The patient was evaluated in room A11A. A complete history and physical exam was performed. 1724: Ordered Sodium Chloride 500 ml @ 100 mls/hr IV. 1728: The case resolution specialist was able to contact the patient's . I spoke with her over the phone. She feels that the patient developed his bed sores after she bought him a recliner, and staff was unable to properly move the patient. She feels that [facility] is not able to treat the patient properly, and would like him to be placed at another facility. top case assembler called [facility] who confirmed that the patient's hospice has been revoked. 6: Vital signs stable. X-rays of the foot do not show any evidence by C myelitis. Elevated white blood cell count and mildly elevated lactic acid. The sources thought to be the sacral decubitus ulcer. The patient will be admitted for sepsis most likely due to sacral decubitus ulcer. Ankle mycin ordered in the emergency department. manager of project management was able to contact the and notified them that the patient will be admitted to the hospital. dr. Gerber hospitalist group accepted the patient. Medical Decision Vital signs stable. X-rays of the foot do not show any evidence by C myelitis. Elevated white blood cell count and mildly elevated lactic acid. The sources thought to be the sacral decubitus ulcer. The patient will be admitted for sepsis most likely due to sacral decubitus ulcer. vancomycin ordered in the emergency department. manager of project management was able to contact the and notified them that the patient will be admitted to the hospital. dr. Gerber hospitalist group accepted the patient. 0028: on completing the charts it was noted that chest x-ray showed an infiltrate. Contacted Dr. Gerber hospitalist team who was notified of the CXR findings and states he will add additionaly abx coverage to cover for HCAP given that the patient is from half-way Medication Reconcilliation Current Medication List: was personally reviewed by me Blood Pressure Screening Patient's blood pressure: Normal blood pressure Blood pressure disposition: Did not require urgent referral Consults Time Called: 2014 Consulting Physician: Dr. Buzz Manzo Hospitalist Returned Call: [phone] Discussed the patient's case. The patient will be evaluated for further treatment and disposition. Impression Primary Impression: Sepsis Additional Impression: Infected decubitus ulcer Scribe Attestation The scribe's documentation has been prepared under my direction and personally reviewed by me in its entirety. I confirm that the note above accurately reflects all work, treatment, procedures, and medical decision making performed by me. Departure Information Dispostion Being Evaluated By Hospitalist Referrals Kory Jennings MD (PCP) Patient Instructions My [facility] Problem Qualifiers
[2017-11-11] MEDS ORDERED: ONDANSETRON INJ 2 MG/ML 2 ML VIAL IV PRN (21:15)
[2017-11-11] MEDS ORDERED: ACETAMINOPHEN 325 MG TAB PO PRN (21:15)
[2017-11-11] MEDS ORDERED: CEFTRIAXONE SOD INJ 2,000 MG in DEXTROSE 5% 50ML 50 ML IV SCH (21:30)
[2017-11-11] MEDS ORDERED: VANCOMYCIN CONSULT ACTIVE PRN (21:35)
[2017-11-11] MEDS ORDERED: MRPL PO (21:46)
[2017-11-11] MEDS ORDERED: RIVA1TAB4 PO (21:46)
[2017-11-11] MEDS ORDERED: TRAZODONE HCL 50 MG TAB PO PRN (22:00)
[2017-11-11] MEDS ORDERED: LORAZEPAM 0.5 MG TAB SL PRN (22:00)
[2017-11-11] MEDS ORDERED: ACETAMINOPHEN 650 MG SUPP PR PRN (22:00)
--- NOTE | 2017-11-11 22:21 | History and Physical ---
History & Physical Date of Service Nov 11, 2017. History & Physical This is an 82 year old male who is recently on hospice at [facility]. of the patient took him off of hospice to have his sacral wounds checked. As per facility, he was having fevers x one week. 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 On presentation, he was noted to have white count and lactic acidosis with tachycardia. Sacral ulcer noted to be at least a stage 3 Heel ulcers bilaterally noted. Patient is nearly bed-ridden at the facility. Plan: will give Vanco + Zosyn for now cultures pending consult ID and wound care for now, continue Xarelto (now will be 20mg daily) plan is possibly returning to [facility] on hospice? will need to speak with family
[2017-11-11] MEDS ORDERED: LORAZEPAM 1 MG TAB SL PRN (22:30)
[2017-11-11] MEDS ORDERED: POLYETHYLENE (MIRALAX) 17 GM PACK PO PRN (22:30)
--- NOTE | 2017-11-11 22:32 | DIAGNOSTIC IMAGING REPORT ---
SACRUM COCCYX MIN 2 VIEWS CLINICAL HISTORY: sacral wound COMPARISON STUDY: None. FINDINGS: Large amount of well-formed stool seen within the rectum. No erosive changes seen within the sacrum or coccyx to suggest osteomyelitis. No fractures. Presacral soft tissues are intact. A 1.8 cm focus of soft tissue gas within the lower gluteal region on the lateral view may represent the patient's known sacral decubitus ulcer. IMPRESSION: 1. No evidence for osteomyelitis within the sacrum or coccyx. 2. A 1.8 cm focus of soft tissue gas within the lower gluteal region may correspond to the patient's sacral decubitus ulcer. Electronically signed by: Laureano Chavis M.D. 11/11/2017 10:31 PM Dictated Date/Time: 11/11/2017 10:29 PM
[2017-11-11 22:45] VITALS: Ht 152.4 cm; Wt 73.6 kg
--- NOTE | 2017-11-11 22:47 | History and Physical ---
History & Physical Date & Time of Service: Nov 11, 2017 at 21:54 Chief Complaint: Pressure Wounds/ Buttocks,Ankles/ [facility] Primary Care Physician: Pasha Joy M.D. History of Present Illness Source: spouse, hospital records, [facility] Pt is 82 y/o M with PMH BPH, dementia with behavioral disturbances, DVT/PE dx 3 weeks ago presented to ER from [facility] for sacral and heel wounds. Pt not alert or oriented and non-verbal. Pt was on hospice, sent to ER secondary to ulcers for further care. Called and spoke to Samira Edgar, pt's . She reports pt has been bedridden and has been non-verbal and doesn't open his eyes. Spoke to staff at [facility]. Report pt was on hospice. State 3 weeks ago dx with DVT and PE and completed 3 weeks Xarelto 15mg BID and start 20mg daily tomorrow. Staff reports when pt arrived in 08/16 sitting in chair most of the time past 2 months been bedridden and they turn him. States had ulcers approx 2 weeks with worsening. Reports past 1.5 week pt with temp 99-101F and has been receiving Tylenol. Reports pt not able to feed himself and eats soft diet, fed by staff and denies any choking episodes. Reports pt been non-verbal recently, previous would " jabber" intermittently. States pt seems to be resting without noted respiratory distress. Staff denies diarrhea, other noted rashes, vomiting. In ER pt temp: 37.4, Pulse: 117, BP: 156/99, 100% on RA, WBC: 12, hgb: 10.7, POC lactic acid 2.2. CXR: minimal parenchymal infiltrate L base. L foot xray: soft tissue swelling. R foot xray: degenerative changes. Head CT: no acute changes. Given vancomycin in ER. Past Medical/Surgical History Medical Problems: (1) Dementia Status: Chronic (2) Depression Status: Chronic (3) History of adenomatous polyp of colon Status: Chronic (4) Iron deficiency anemia Status: Chronic (5) Macular degeneration Status: Chronic Surgical Problems: (1) Status post colonoscopy Status: Chronic Family History Blood clots MOTHER (? pulmonary embolism) Myocardial infarction FATHER Social History Smoking Status: Unknown if Ever Smoked Smokeless Tobacco Use: No Alcohol Use: none Drug Use: none Marital Status: Housing status: other Occupational Status: retired Immunizations History of Influenza Vaccine: Yes History of Pneumococcal: Yes Multi-Drug Resistant Organisms History of MDRO: No Allergies Coded Allergies: Rivastigmine (Verified Allergy, Intermediate, NEURO COMPLICATIONS/RASH, 07/05/17) Home Medications Scheduled Morphine Sulfate (Morphine Sulfate), 0.25-0.5 ML PO Q1H Olanzapine (Zyprexa), 2.5 MG PO HS Rivaroxaban (Xarelto), 1 TAB PO DAILY Tamsulosin Hcl (Flomax), 0.4 MG PO HS Scheduled PRN Acetaminophen (Tylenol), 650 MG ID Q4 PRN for Pain Acetaminophen Tab (Tylenol), 650 MG PO Q4 PRN for Pain Diazepam (Valium), 5 MG PO Q6 PRN for Anxiety Glycopyrrolate (Glycopyrrolate), 1-2 TABS PO Q4 PRN for ACID Lorazepam (Lorazepam), 1 MG UT Q4 PRN for Anxiety/Agitation Promethazine Hcl (Phenergan), 25 MG PO Q6H PRN for Nausea Trazodone Hcl (Trazodone), 50 MG PO HS PRN for Agitation Review of Systems unable to further secondary to pt's mental status Physical Exam Vital Signs Date Time Temp Pulse Resp B/P (MAP) Pulse Ox O2 Delivery O2 Flow Rate FiO2 11/11/17 21:45 91 20 123/67 99 Room Air 11/11/17 19:49 37.4 117 18 156/99 100 Room Air 11/11/17 18:51 108 22 175/96 100 Room Air 11/11/17 18:26 111 26 173/147 100 Room Air 11/11/17 16:42 36.3 98 26 113/79 91 Room Air 11/11/17 16:26 93 General Appearance: + pertinent finding (chronic ill appearing, thin, resting in bed, eyes closed, no distress noted, breathing through mouth) Head: normocephalic, atraumatic Eyes: normal inspection, PERRL, sclerae normal ENT: pharynx normal, + pertinent finding (mucous membranes mildly dry) Neck: supple, trachea midline Respiratory/Chest: no respiratory distress, no accessory muscle use, + decreased breath sounds (scattered rhonchi) Cardiovascular: normal peripheral pulses, + irregularly irregular Abdomen/GI: normal bowel sounds, soft, + pertinent finding (no apparent tenderness to palpation) Extremities/Musculoskelatal: normal capillary refill, no pedal edema, + pertinent finding (left heel with ulcer with mild surrounding erythema, right heel with ulcer with mild surrounding erythema, sacrum with grade 3 ulcer with escar and +foul odor ) Neurologic/Psych: + pertinent finding (pt eyes closed, non-verbal) Skin: warm/dry, + pertinent finding (left medial aspect knee with skin erythema. see above) Diagnostics Laboratory Results Results Past 24 Hours Test 11/11/17 18:25 11/11/17 18:37 11/11/17 20:04 Range/Units Urine Color DK YELLOW Urine Appearance CLOUDY CLEAR Urine pH 7.5 4.5-7.5 Urine Specific [place] 1.022 1.000-1.030 Urine Protein NEG NEG Urine Glucose (UA) NEG NEG Urine Ketones TRACE NEG Urine Occult Blood NEG NEG Urine Nitrite NEG NEG Urine Bilirubin NEG NEG Urine Urobilinogen POS NEG Urine Leukocyte Esterase TRACE NEG Urine WBC (Auto) 1-5 0-5 /hpf Urine RBC (Auto) 0-4 0-4 /hpf Urine Hyaline Casts (Auto) 0 0-5 /lpf Urine Epithelial Cells (Auto) 5-10 0-5 /lpf Urine Bacteria (Auto) 4+ NEG White Blood Count 12.84 4.8-10.8 K/uL Red Blood Count 3.58 4.7-6.1 M/uL Hemoglobin 10.7 14.0-18.0 g/dL Hematocrit 33.0 42-52 % Mean Corpuscular Volume 92.2 80-100 fL Mean Corpuscular Hemoglobin 29.9 25-34 pg Mean Corpuscular Hemoglobin Concent 32.4 32-36 g/dl Platelet Count 356 130-400 K/uL Mean Platelet Volume 9.7 7.4-10.4 fL Neutrophils (%) (Auto) 78.1 % Lymphocytes (%) (Auto) 15.3 % Monocytes (%) (Auto) 5.2 % Eosinophils (%) (Auto) 0.9 % Basophils (%) (Auto) 0.2 % Neutrophils # (Auto) 10.03 1.4-6.5 K/uL Lymphocytes # (Auto) 1.97 1.2-3.4 K/uL Monocytes # (Auto) 0.67 0.11-0.59 K/uL Eosinophils # (Auto) 0.11 0-0.5 K/uL Basophils # (Auto) 0.02 0-0.2 K/uL RDW Standard Deviation 50.3 36.4-46.3 fL RDW Coefficient of Variation 14.9 11.5-14.5 % Immature Granulocyte % (Auto) 0.3 % Immature Granulocyte # (Auto) 0.04 0.00-0.02 K/uL Sodium Level 138 136-145 mmol/L Potassium Level 4.1 3.5-5.1 mmol/L Chloride Level 105 98-107 mmol/L Carbon Dioxide Level 25 21-32 mmol/L Anion Gap 8.0 3-11 mmol/L Blood Urea Nitrogen 16 7-18 mg/dl Creatinine 0.69 0.60-1.40 mg/dl Est Creatinine Clear Calc Drug Dose 78.5 ml/min Estimated GFR () 101.8 Estimated GFR (Non- 87.8 BUN/Creatinine Ratio 22.7 10-20 Random Glucose 96 70-99 mg/dl Calcium Level 8.6 8.5-10.1 mg/dl Magnesium Level 2.4 1.8-2.4 mg/dl Bedside Lactic Acid Venous 2.22 0.90-1.70 mmol/L Microbiology Results 11/11/17 Gram Stain, Received Pending 11/11/17 Wound Culture, Received Pending Diagnostic Radiology CT HEAD Impression: Chronic and age-related change. No acute intracranial abnormality. L FOOT XRAY: IMPRESSION: Mild generalized soft tissue edema. Moderate degenerative change. Osteopenia. R FOOT XRAY IMPRESSION: Degenerative change. Osteopenia. SACRAL XRAY: IMPRESSION: 1. No evidence for osteomyelitis within the sacrum or coccyx. 2. A 1.8 cm focus of soft tissue gas within the lower gluteal region may correspond to the patient's sacral decubitus ulcer. CXR: IMPRESSION: Minimal parenchymal infiltrate left base. Impression Assessment and Plan SEPSIS 2/2 INFECTED DECUBITUS ULCER, BILATERAL HEEL ULCERS Pt from [facility] was on hospice sent to ER for worsening decubitus ulcer and bilateral heel ulcer. Reported pt been bedridden past 2 months with reported fever up to 101F x >1week. In ER tachy, WBC: 12, POC lactic acid: 2.2. No osteomyelitis noted on R & L foot xray or sacral x-ray. Pt given Vancomycin and NSS in ER. -wound culture sacral ulcer -pending blood cultures -vancomycin and zosyn -repositioning of pt -EHOB mattress -cbc, prp in am -trend lactic acid -morphine prn pain -ID consult -wound consult INFILTRATE L LOWER LOBE LUNG CXR: minimal parenchymal infiltrate L base. No respiratory distress. Sats: 100% on RA -zosyn, vancomycin -continue to monitor DEMENTIA reports pt at recent baseline -continue ativan prn -continue trazodone HS prn -continue olanzapine -NPO until swallowing eval BPH -continue flomax HX DVT/PE Staff reports DVT/PE dx 3 weeks ago, pt on xarelto -continue xarelto DVT PROPHYLAXIS -xarelto DISPOSITION -admit med surg -DNR as per discussion with pt's -Follows with Dr Joy at [facility] Pt was seen with Dr Olmos. See addendum Level of Care Med/Surg Resuscitation Status DO NOT RESUSCITATE VTE Prophylaxis VTE Risk Assessment Done? Y/N: Yes Risk Level: Moderate Given or contraindicated: Other Anticoagulation Additional Copies To Pasha Joy M.D.
[2017-11-11] MEDS ORDERED: PIPERACILL/TAZOBAC CONSULT ACTIVE PRN (22:50)
[2017-11-11] MEDS: SODIUM CHLORIDE 0.9% 1000ML 1,000 ML IV SCH (23:46)
[2017-11-12] MEDS ORDERED: PIPERACILL/TAZOBAC IV 3.375 GM in DEXTROSE 5% 100ML IV ONE ×2
[2017-11-12 01:18] VITALS: BP 115/58; PULSE 83; TEMP 37.6; O2SAT 94
[2017-11-12] MEDS: VANCOMYCIN INJ 1,250 MG in SODIUM CHLORIDE 0.9% 250ML 250 ML IV SCH ×2 (04:05→16:50)
[2017-11-12] MEDS: PIPERACILL/TAZOBAC IV 3.375 GM in DEXTROSE 5% 100ML IV SCH ×3 (05:28→20:44)
[2017-11-12 07:42] VITALS: BP 110/70; PULSE 68; TEMP 36.8; O2SAT 96
[2017-11-12] MEDS: RIVAROXABAN 10 MG TAB PO SCH (08:00)
[2017-11-12] MEDS: SODIUM CHLORIDE 0.9% 1000ML 1,000 ML IV SCH ×2 (09:47→20:44)
[2017-11-12 10:53] LABS: HEMATOCRIT 28.6 % (42-52); HEMOGLOBIN 9.3 g/dL (14.0-18.0); MEAN CORPUSCULAR HEMOGLOBIN 29.9 pg (25-34); MEAN CORPUSCULAR HGB CONC 32.5 g/dl (32-36); MEAN PLATELET VOLUME 9.9 fL (7.4-10.4); PLATELET COUNT 316 K/uL (130-400); RED CELL DISTRIBUTION WIDTH CV 14.8 % (11.5-14.5); RED CELL DISTRIBUTION WIDTH SD 49.9 fL (36.4-46.3); WHITE BLOOD COUNT 11.83 K/uL (4.8-10.8)
[2017-11-12 11:18] LABS: BASO % 0.1 %; BASO ABS # 0.01 K/uL (0-0.2); EOS ABS # 0.12 K/uL (0-0.5); IG# 0.05 K/uL (0.00-0.02); LYMPH % 11.6 %; LYMPH ABS # 1.37 K/uL (1.2-3.4); MONO % 5.5 %; MONO ABS # 0.65 K/uL (0.11-0.59); NEUT % 81.4 %; NEUT ABS # 9.63 K/uL (1.4-6.5)
[2017-11-12 11:27] LABS: CALCIUM 7.8 mg/dl (8.5-10.1); CREATININE 0.63 mg/dl (0.60-1.40); POTASSIUM 3.7 mmol/L (3.5-5.1)
[2017-11-12 15:07] VITALS: BP 142/91; PULSE 74; TEMP 36.5; O2SAT 93
--- NOTE | 2017-11-12 19:41 | Medical Consult ---
Consultation Date of Consultation: Nov 12, 2017. Attending Physician: Alfred Randle M.D. Reason for Consultation: Infected ulcer History of Present Illness History obtained from medical records and medical staff as patient nonverbal. 82-year-old male, nonverbal, previously on hospice care, with DVT and pulmonary embolus diagnosed several weeks ago, bed ridden, who apparently has been running fever for the past 1 and half weeks. He has developed ulcerations of both heels and sacrum, he was sent to the emergency room because of fever and ulcerations, and was found to have elevated white count and lactic acid. He has been started empirically on vancomycin and Zosyn, cultures are pending.X- rays of foot show soft tissue swelling but no evidence of osteomyelitis. Sacral x-ray, read by me, shows small amount of soft tissue gas but no evidence of sacral osteomyelitis. Past Medical/Surgical History Medical Problems: (1) Constipation Status: Acute (2) Dehydration Status: Acute (3) Dementia with aggressive behavior Status: Acute (4) Dizziness Status: Acute (5) Generalized weakness Status: Acute (6) Infected decubitus ulcer Status: Acute (7) Sepsis Status: Acute Her Medical Problems: (1) BPH (benign prostatic hyperplasia) (2) Delirium (3) Dementia (4) Depression (5) Fall (6) History of adenomatous polyp of colon (7) Iron deficiency anemia (8) Macular degeneration Surgical Problems: (1) Hx of cataract surgery (2) Status post colonoscopy Family History Blood clots MOTHER (? pulmonary embolism) Myocardial infarction FATHER Social History Smoking Status: Unknown if Ever Smoked Smokeless Tobacco Use: No Alcohol Use: none Drug Use: none Marital Status: Housing Status: lives with significant other Occupation Status: retired Allergies Coded Allergies: Rivastigmine (Verified Allergy, Intermediate, NEURO COMPLICATIONS/RASH, 07/05/17) Current Inpatient Medications Current Inpatient Medications Medications (Trade) Dose Ordered Sig/Amos Route Start Time Stop Time Status Last Admin Dose Admin Polyethylene (Miralax Powder Packet) 17 gm DAILY PRN PO 11/11/17 22:30 12/11/17 22:29 Ondansetron HCl (Zofran Inj) 4 mg Q6H PRN IV 11/11/17 21:15 12/11/17 21:14 Vancomycin HCl (Consult) 1 ea DAILY PRN N/A 11/11/17 21:35 12/11/17 21:34 Sodium Chloride 1,000 ml @ 100 mls/hr Q10H IV 11/11/17 23:30 12/11/17 23:29 11/12/17 09:47 100 MLS/HR Piperacillin Sod/ Tazobactam Sod (Consult) 1 ea DAILY PRN N/A 11/11/17 22:50 12/11/17 22:49 Acetaminophen (Tylenol Supp) 650 mg Q4H PRN [place] 11/11/17 22:00 12/11/17 21:59 Morphine Sulfate (MoRPHine SULFATE INJ) 1 mg Q4H PRN IV 11/11/17 22:00 11/25/17 21:59 Olanzapine (Zyprexa Tab) 2.5 mg HS PO 11/12/17 21:00 12/12/17 20:59 Rivaroxaban (Xarelto Tab) 20 mg DAILY PO 11/12/17 08:00 12/12/17 08:59 Tamsulosin HCl (Flomax Cap) 0.4 mg HS PO 11/12/17 21:00 12/12/17 20:59 Trazodone HCl (Desyrel Tab) 50 mg HS PRN PO 11/11/17 22:00 12/11/17 21:59 Lorazepam (Ativan Tab) 1 mg Q6H PRN SL 11/11/17 22:30 12/11/17 22:29 Piperacillin Sod/ Tazobactam Sod 3.375 gm/Dextrose 115 ml @ 28.75 mls/ hr Q8H IV 11/12/17 06:00 11/22/17 05:59 11/12/17 14:02 28.75 MLS/HR Vancomycin HCl 1250 mg/Sodium Chloride 275 ml @ 125 mls/hr Q12H IV 11/12/17 04:00 11/22/17 03:59 11/12/17 16:50 125 MLS/HR Review of Systems Not obtainable because of patient's mental status Physical Exam Date Time Temp Pulse Resp B/P (MAP) Pulse Ox O2 Delivery O2 Flow Rate FiO2 11/12/17 15:07 36.5 74 20 142/91 (108) 93 Room Air 11/12/17 09:31 Room Air 11/12/17 07:42 36.8 68 16 110/70 (83) 96 Room Air 11/12/17 01:18 37.6 83 18 115/58 (77) 94 Room Air 11/11/17 22:45 Room Air 11/11/17 22:34 22 140/63 99 Room Air 11/11/17 21:45 91 20 123/67 99 Room Air 11/11/17 19:49 37.4 117 18 156/99 100 Room Air General Appearance: no apparent distress, + pertinent finding (Chronically ill- appearing) Head: normocephalic, atraumatic Eyes: normal inspection, EOMI, sclerae normal ENT: normal ENT inspection, pharynx normal Neck: supple, no adenopathy, thyroid normal, trachea midline Respiratory/Chest: chest non-tender, lungs clear, normal breath sounds, no respiratory distress Cardiovascular: no gallop, no murmur, + irregularly irregular Abdomen/GI: normal bowel sounds, non tender, soft, no organomegaly Back: normal inspection, no CVA tenderness Extremities/Musculoskelatal: no calf tenderness, + pertinent finding (Left and right heel ulcerations) Neurologic/Psych: + pertinent finding (Patient with eyes closed, nonverbal) Skin: normal color, no rash, + pertinent finding (Bilateral heel ulcerations with some surrounding erythema, sacral eschar with foul odor) Lymphatic: no adenopathy Laboratory Results Have a Date/Time Source Procedure Growth Status 11/11/17 21:00 Ulcer Buttock Gram Stain - Final Resulted 11/11/17 21:00 Wound Culture - Preliminary Gram Negative Bacilli Resulted Last 24 Hours Test 11/11/17 20:04 11/12/17 00:01 11/12/17 10:15 11/12/17 18:53 Bedside Lactic Acid Venous 2.22 mmol/L Lactic Acid Level 1.6 mmol/L White Blood Count 11.83 K/uL Red Blood Count 3.11 M/uL Hemoglobin 9.3 g/dL Hematocrit 28.6 % Mean Corpuscular Volume 92.0 fL Mean Corpuscular Hemoglobin 29.9 pg Mean Corpuscular Hemoglobin Concent 32.5 g/dl Platelet Count 316 K/uL Mean Platelet Volume 9.9 fL Neutrophils (%) (Auto) 81.4 % Lymphocytes (%) (Auto) 11.6 % Monocytes (%) (Auto) 5.5 % Eosinophils (%) (Auto) 1.0 % Basophils (%) (Auto) 0.1 % Neutrophils # (Auto) 9.63 K/uL Lymphocytes # (Auto) 1.37 K/uL Monocytes # (Auto) 0.65 K/uL Eosinophils # (Auto) 0.12 K/uL Basophils # (Auto) 0.01 K/uL RDW Standard Deviation 49.9 fL RDW Coefficient of Variation 14.8 % Immature Granulocyte % (Auto) 0.4 % Immature Granulocyte # (Auto) 0.05 K/uL Dohle Bodies 1+ Sodium Level 139 mmol/L Potassium Level 3.7 mmol/L Chloride Level 108 mmol/L Carbon Dioxide Level 26 mmol/L Anion Gap 5.0 mmol/L Blood Urea Nitrogen 16 mg/dl Creatinine 0.63 mg/dl Est Creatinine Clear Calc Drug Dose 74.7 ml/min Estimated GFR () 105.6 Estimated GFR (Non- 91.1 BUN/Creatinine Ratio 25.1 Random Glucose 94 mg/dl Calcium Level 7.8 mg/dl [~ rep ct add3]] SACRUM COCCYX MIN 2 VIEWS CLINICAL HISTORY: sacral wound COMPARISON STUDY: None. FINDINGS: Large amount of well-formed stool seen within the rectum. No erosive changes seen within the sacrum or coccyx to suggest osteomyelitis. No fractures. Presacral soft tissues are intact. A 1.8 cm focus of soft tissue gas within the lower gluteal region on the lateral view may represent the patient's known sacral decubitus ulcer. IMPRESSION: 1. No evidence for osteomyelitis within the sacrum or coccyx. 2. A 1.8 cm focus of soft tissue gas within the lower gluteal region may correspond to the patient's sacral decubitus ulcer. Electronically signed by: Laureano Chavis M.D. 11/11/2017 10:31 PM Dictated Date/Time: 11/11/2017 10:29 PM Assessment & Plan 82-year-old male, nonverbal, bedridden, with fever and ulcerations of heels and sacrum with leukocytosis and elevated lactic acid consistent with infection. Agree with empiric use of vancomycin and Zosyn pending culture results, procalcitonin ordered. Will need to make decision regarding surgical intervention for treatment of sacral ulcer. Will discuss with all involved. Will follow.
--- NOTE | 2017-11-12 19:41 | Progress Note ---
Medicine Progress Note Date & Time of Visit: Nov 12, 2017 at 15:23 . Subjective CC: Follow-up visit for sepsis and decubitus ulcers. HPI: Confused. Low grade temp during the night. ROS: Unable to obtain due to confusion. . Objective Last 8 Hrs Date Time Temp Pulse Resp B/P (MAP) Pulse Ox O2 Delivery O2 Flow Rate FiO2 11/12/17 15:07 36.5 74 20 142/91 (108) 93 Room Air 11/12/17 09:31 Room Air 11/12/17 07:42 36.8 68 16 110/70 (83) 96 Room Air Physical Exam: General- chronically ill-appearing, no acute distress Lungs- clear Cardiovascular- RRR, no gallop appreciated; no JVD; no pretibial edema Abdomen- + BS, soft, nontender Extremities- no cyanosis; no calf tenderness Neuro- confused Skin- large, deep, unstageable decubitus ulcer with eschar and foul-smelling exudate; large ulcer right heel stage 2-3; large ulcer left heel stage 2 . Laboratory Results: Last 24 Hours Test 11/11/17 18:25 11/11/17 18:37 11/11/17 20:04 11/12/17 00:01 Urine Color DK YELLOW Urine Appearance CLOUDY Urine pH 7.5 Urine Specific [place] 1.022 Urine Protein NEG Urine Glucose (UA) NEG Urine Ketones TRACE Urine Occult Blood NEG Urine Nitrite NEG Urine Bilirubin NEG Urine Urobilinogen POS Urine Leukocyte Esterase TRACE Urine WBC (Auto) 1-5 /hpf Urine RBC (Auto) 0-4 /hpf Urine Hyaline Casts (Auto) 0 /lpf Urine Epithelial Cells (Auto) 5-10 /lpf Urine Bacteria (Auto) 4+ White Blood Count 12.84 K/uL Red Blood Count 3.58 M/uL Hemoglobin 10.7 g/dL Hematocrit 33.0 % Mean Corpuscular Volume 92.2 fL Mean Corpuscular Hemoglobin 29.9 pg Mean Corpuscular Hemoglobin Concent 32.4 g/dl Platelet Count 356 K/uL Mean Platelet Volume 9.7 fL Neutrophils (%) (Auto) 78.1 % Lymphocytes (%) (Auto) 15.3 % Monocytes (%) (Auto) 5.2 % Eosinophils (%) (Auto) 0.9 % Basophils (%) (Auto) 0.2 % Neutrophils # (Auto) 10.03 K/uL Lymphocytes # (Auto) 1.97 K/uL Monocytes # (Auto) 0.67 K/uL Eosinophils # (Auto) 0.11 K/uL Basophils # (Auto) 0.02 K/uL RDW Standard Deviation 50.3 fL RDW Coefficient of Variation 14.9 % Immature Granulocyte % (Auto) 0.3 % Immature Granulocyte # (Auto) 0.04 K/uL Sodium Level 138 mmol/L Potassium Level 4.1 mmol/L Chloride Level 105 mmol/L Carbon Dioxide Level 25 mmol/L Anion Gap 8.0 mmol/L Blood Urea Nitrogen 16 mg/dl Creatinine 0.69 mg/dl Est Creatinine Clear Calc Drug Dose 78.5 ml/min Estimated GFR () 101.8 Estimated GFR (Non- 87.8 BUN/Creatinine Ratio 22.7 Random Glucose 96 mg/dl Calcium Level 8.6 mg/dl Magnesium Level 2.4 mg/dl Bedside Lactic Acid Venous 2.22 mmol/L Lactic Acid Level 1.6 mmol/L Test 11/12/17 10:15 White Blood Count 11.83 K/uL Red Blood Count 3.11 M/uL Hemoglobin 9.3 g/dL Hematocrit 28.6 % Mean Corpuscular Volume 92.0 fL Mean Corpuscular Hemoglobin 29.9 pg Mean Corpuscular Hemoglobin Concent 32.5 g/dl Platelet Count 316 K/uL Mean Platelet Volume 9.9 fL Neutrophils (%) (Auto) 81.4 % Lymphocytes (%) (Auto) 11.6 % Monocytes (%) (Auto) 5.5 % Eosinophils (%) (Auto) 1.0 % Basophils (%) (Auto) 0.1 % Neutrophils # (Auto) 9.63 K/uL Lymphocytes # (Auto) 1.37 K/uL Monocytes # (Auto) 0.65 K/uL Eosinophils # (Auto) 0.12 K/uL Basophils # (Auto) 0.01 K/uL RDW Standard Deviation 49.9 fL RDW Coefficient of Variation 14.8 % Immature Granulocyte % (Auto) 0.4 % Immature Granulocyte # (Auto) 0.05 K/uL Dohle Bodies 1+ Sodium Level 139 mmol/L Potassium Level 3.7 mmol/L Chloride Level 108 mmol/L Carbon Dioxide Level 26 mmol/L Anion Gap 5.0 mmol/L Blood Urea Nitrogen 16 mg/dl Creatinine 0.63 mg/dl Est Creatinine Clear Calc Drug Dose 74.7 ml/min Estimated GFR () 105.6 Estimated GFR (Non- 91.1 BUN/Creatinine Ratio 25.1 Random Glucose 94 mg/dl Calcium Level 7.8 mg/dl Date/Time Source Procedure Growth Status 11/11/17 21:00 Ulcer Buttock Gram Stain - Final Resulted 11/11/17 21:00 Wound Culture - Preliminary Gram Negative Bacilli Resulted Assessment & Plan SEPSIS Met criteria for sepsis per 2001 definition and current CMS guidelines- leukocytosis, tachycardia, tachypnea. Likely source = infected sacral decubitus ulcer. Blood and wound cultures obtained. Received broad spectrum antibiotic coverage with piperacillin / tazobactam + vancomycin. Serum lactate 2.22, repeat 1.6. BP's > 90 systolic. Further management as discussed below. DECUBITUS ULCERS Decubitus ulcers of sacrum and bilateral heels. Sacral ulcer is unstageable, but appears to be deep. Continue vancomycin and piperacillin / tazobactam pending culture results. Reposition q 2 hrs. May need specialty bed- will defer to Wound Care. ID consulted. Wound Care consulted. 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 Monitor for delirium. BPH Continue tamsulosin. VTE PROPHYLAXIS / RECENT DVT Moderate risk for VTE. Receiving rivaroxaban. DISPOSITION To be determined. Will most likely require long-term group home care. . Current Inpatient Medications: Current Inpatient Medications Medications (Trade) Dose Ordered Sig/Amos Route Start Time Stop Time Status Last Admin Dose Admin Polyethylene (Miralax Powder Packet) 17 gm DAILY PRN PO 11/11/17 22:30 12/11/17 22:29 Ondansetron HCl (Zofran Inj) 4 mg Q6H PRN IV 11/11/17 21:15 12/11/17 21:14 Vancomycin HCl (Consult) 1 ea DAILY PRN N/A 11/11/17 21:35 12/11/17 21:34 Sodium Chloride 1,000 ml @ 100 mls/hr Q10H IV 11/11/17 23:30 12/11/17 23:29 11/12/17 09:47 100 MLS/HR Piperacillin Sod/ Tazobactam Sod (Consult) 1 ea DAILY PRN N/A 11/11/17 22:50 12/11/17 22:49 Acetaminophen (Tylenol Supp) 650 mg Q4H PRN [place] 11/11/17 22:00 12/11/17 21:59 Morphine Sulfate (MoRPHine SULFATE INJ) 1 mg Q4H PRN IV 11/11/17 22:00 11/25/17 21:59 Olanzapine (Zyprexa Tab) 2.5 mg HS PO 11/12/17 21:00 12/12/17 20:59 Rivaroxaban (Xarelto Tab) 20 mg DAILY PO 11/12/17 08:00 12/12/17 08:59 Tamsulosin HCl (Flomax Cap) 0.4 mg HS PO 11/12/17 21:00 12/12/17 20:59 Trazodone HCl (Desyrel Tab) 50 mg HS PRN PO 11/11/17 22:00 12/11/17 21:59 Lorazepam (Ativan Tab) 1 mg Q6H PRN SL 11/11/17 22:30 12/11/17 22:29 Piperacillin Sod/ Tazobactam Sod 3.375 gm/Dextrose 115 ml @ 28.75 mls/ hr Q8H IV 11/12/17 06:00 11/22/17 05:59 11/12/17 14:02 28.75 MLS/HR Vancomycin HCl 1250 mg/Sodium Chloride 275 ml @ 125 mls/hr Q12H IV 11/12/17 04:00 11/22/17 03:59 11/12/17 04:05 125 MLS/HR
[2017-11-12] MEDS: TAMSULOSIN HCL 0.4 MG CAP PO SCH (22:00)
[2017-11-12] MEDS: OLANZAPINE 2.5 MG TAB PO SCH (22:00)
[2017-11-13] MEDS: MoRPHine SULFATE 2 MG/ML CARP IV PRN ×3 (01:13→20:06)
[2017-11-13] MEDS ORDERED: VANCOMYCIN TROUGH ONE (03:30)
[2017-11-13] MEDS: VANCOMYCIN INJ 1,250 MG in SODIUM CHLORIDE 0.9% 250ML 250 ML IV SCH (03:58)
[2017-11-13] MEDS: SODIUM CHLORIDE 0.9% 1000ML 1,000 ML IV SCH ×2 (05:30→11:07)
[2017-11-13] MEDS: PIPERACILL/TAZOBAC IV 3.375 GM in DEXTROSE 5% 100ML IV SCH ×3 (06:29→22:08)
[2017-11-13 07:26] VITALS: BP 126/76; PULSE 71; TEMP 36.5; O2SAT 93
[2017-11-13] MEDS: RIVAROXABAN 10 MG TAB PO SCH (08:00)
[2017-11-13 08:48] LABS: HEMATOCRIT 28.5 % (42-52); HEMOGLOBIN 9.2 g/dL (14.0-18.0); MEAN CELL VOLUME 91.9 fL (80-100); MEAN CORPUSCULAR HEMOGLOBIN 29.7 pg (25-34); MEAN CORPUSCULAR HGB CONC 32.3 g/dl (32-36); MEAN PLATELET VOLUME 9.6 fL (7.4-10.4); PLATELET COUNT 310 K/uL (130-400); RED CELL DISTRIBUTION WIDTH CV 14.9 % (11.5-14.5); RED CELL DISTRIBUTION WIDTH SD 49.7 fL (36.4-46.3); WHITE BLOOD COUNT 9.42 K/uL (4.8-10.8)
[2017-11-13 09:17] LABS: CALCIUM 7.9 mg/dl (8.5-10.1); CREATININE 0.52 mg/dl (0.60-1.40); POTASSIUM 3.9 mmol/L (3.5-5.1)
--- NOTE | 2017-11-13 09:59 | Pharmacy Progress Note ---
Pharmacy Abx Dose Short Note Date of Service Nov 13, 2017. Assessment & Plan Pt receiving Vanco/Zosyn for wound. Vanco trough therapeutic for cellulitis and being prior to Css. Renal fxn continues to improve. Will continue current regimen. Trough ordered for 11/15 @ 0330 Pharmacy will continue to follow and will adjust dose/frequency as necessary. Thank you.
[2017-11-13 10:29] LABS: INR 1.4 (0.9-1.1)
[2017-11-13] MEDS ORDERED: ENOXAPARIN 100 MG/1ML SYR SQ ONE (12:30)
[2017-11-13] MEDS: D5W AND LACTATED RINGERS 1,000 ML IV SCH (13:37)
[2017-11-13 14:54] VITALS: BP 138/86; PULSE 68; TEMP 37; O2SAT 91
[2017-11-13] MEDS: TAMSULOSIN HCL 0.4 MG CAP PO SCH (22:00)
[2017-11-13] MEDS: OLANZAPINE 2.5 MG TAB PO SCH (22:00)
--- NOTE | 2017-11-13 23:32 | Progress Note ---
Medicine Progress Note Date & Time of Visit: Nov 13, 2017 at 12:20 . Subjective CC: Follow-up visit for sepsis and decubitus ulcers. HPI: Confused, lethargic. Not taking PO meds. Afebrile. No other problems reported by nursing. ROS: Unable to obtain due to confusion. . Objective Last 8 Hrs Date Time Temp Pulse Resp B/P (MAP) Pulse Ox O2 Delivery O2 Flow Rate FiO2 11/13/17 07:26 36.5 71 18 126/76 (93) 93 Room Air Physical Exam: General- chronically ill-appearing, no acute distress Lungs- clear Cardiovascular- RRR, no gallop appreciated; no JVD; no pretibial edema Abdomen- + BS, soft, nontender Extremities- no cyanosis; no calf tenderness Neuro- lethargic Skin- warm & dry; ulcers as documented 11/12 . Laboratory Results: Last 24 Hours Test 11/12/17 18:53 11/13/17 03:17 11/13/17 08:19 11/13/17 09:52 Procalcitonin 0.11 ng/ml Vancomycin Level Trough 12.8 mcg/ml White Blood Count 9.42 K/uL Red Blood Count 3.10 M/uL Hemoglobin 9.2 g/dL Hematocrit 28.5 % Mean Corpuscular Volume 91.9 fL Mean Corpuscular Hemoglobin 29.7 pg Mean Corpuscular Hemoglobin Concent 32.3 g/dl RDW Standard Deviation 49.7 fL RDW Coefficient of Variation 14.9 % Platelet Count 310 K/uL Mean Platelet Volume 9.6 fL Sodium Level 140 mmol/L Potassium Level 3.9 mmol/L Chloride Level 109 mmol/L Carbon Dioxide Level 24 mmol/L Anion Gap 7.0 mmol/L Blood Urea Nitrogen 13 mg/dl Creatinine 0.52 mg/dl Est Creatinine Clear Calc Drug Dose 90.5 ml/min Estimated GFR () 114.3 Estimated GFR (Non- 98.6 BUN/Creatinine Ratio 25.0 Random Glucose 94 mg/dl Calcium Level 7.9 mg/dl Prothrombin Time 14.3 SECONDS Prothromb Time International Ratio 1.4 Activated Partial Thromboplast Time 32.0 SECONDS Partial Thromboplastin Ratio 1.2 Date/Time Source Procedure Growth Status 11/13/17 10:22 Nasal MRSA DNA Surveillance Screen Pending Received Assessment & Plan SEPSIS Met criteria for sepsis per 2001 definition and current CMS guidelines- leukocytosis, tachycardia, tachypnea. Likely source = infected sacral decubitus ulcer. Blood and wound cultures obtained. Received broad spectrum antibiotic coverage with piperacillin / tazobactam + vancomycin. Serum lactate 2.22, repeat 1.6. BP's > 90 systolic. Further management as discussed below. DECUBITUS ULCERS Decubitus ulcers of sacrum and bilateral heels. Sacral ulcer is unstageable, but appears to be deep. Nasal MRSA screen negative. Stop vancomycin. Continue piperacillin / tazobactam pending culture results. Reposition q 2 hrs. May need specialty bed- will defer to Wound Care. ID consulted. Wound Care consulted. 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 Monitor for delirium. BPH Continue tamsulosin. VTE PROPHYLAXIS / RECENT DVT Recent DVT. Receiving rivaroxaban, but not taking PO meds. Transition to SQ enoxaparin. DISPOSITION To be determined. Will most likely require long-term [facility] care. . Current Inpatient Medications: Current Inpatient Medications Medications (Trade) Dose Ordered Sig/Amos Route Start Time Stop Time Status Last Admin Dose Admin Polyethylene (Miralax Powder Packet) 17 gm DAILY PRN PO 11/11/17 22:30 12/11/17 22:29 Ondansetron HCl (Zofran Inj) 4 mg Q6H PRN IV 11/11/17 21:15 12/11/17 21:14 Vancomycin HCl (Consult) 1 ea DAILY PRN N/A 11/11/17 21:35 12/11/17 21:34 Sodium Chloride 1,000 ml @ 100 mls/hr Q10H IV 11/11/17 23:30 12/11/17 23:29 11/13/17 11:07 100 MLS/HR Piperacillin Sod/ Tazobactam Sod (Consult) 1 ea DAILY PRN N/A 11/11/17 22:50 12/11/17 22:49 Acetaminophen (Tylenol Supp) 650 mg Q4H PRN [place] 11/11/17 22:00 12/11/17 21:59 Morphine Sulfate (MoRPHine SULFATE INJ) 1 mg Q4H PRN IV 11/11/17 22:00 11/25/17 21:59 11/13/17 06:28 1 MG Olanzapine (Zyprexa Tab) 2.5 mg HS PO 11/12/17 21:00 12/12/17 20:59 Rivaroxaban (Xarelto Tab) 20 mg DAILY PO 11/12/17 08:00 12/12/17 08:59 Tamsulosin HCl (Flomax Cap) 0.4 mg HS PO 11/12/17 21:00 12/12/17 20:59 Trazodone HCl (Desyrel Tab) 50 mg HS PRN PO 11/11/17 22:00 12/11/17 21:59 Lorazepam (Ativan Tab) 1 mg Q6H PRN SL 11/11/17 22:30 12/11/17 22:29 Piperacillin Sod/ Tazobactam Sod 3.375 gm/Dextrose 115 ml @ 28.75 mls/ hr Q8H IV 11/12/17 06:00 11/22/17 05:59 11/13/17 06:29 28.75 MLS/HR Vancomycin HCl 1250 mg/Sodium Chloride 275 ml @ 125 mls/hr Q12H IV 11/12/17 04:00 11/22/17 03:59 11/13/17 03:58 125 MLS/HR
[2017-11-14 00:08] VITALS: BP 162/84; PULSE 57; TEMP 36.6; O2SAT 95
[2017-11-14] MEDS: D5W AND LACTATED RINGERS 1,000 ML IV SCH (00:25)
[2017-11-14] MEDS: MoRPHine SULFATE 2 MG/ML CARP IV PRN ×5 (02:09→23:43)
[2017-11-14] MEDS: PIPERACILL/TAZOBAC IV 3.375 GM in DEXTROSE 5% 100ML IV SCH (05:40)
[2017-11-14] MEDS: ENOXAPARIN 80 MG/0.8 ML SYR SQ SCH ×2 (07:21→21:04)
[2017-11-14 07:34] VITALS: BP 112/58; PULSE 66; TEMP 37.1; O2SAT 96
[2017-11-14 07:58] LABS: HEMATOCRIT 24.1 % (42-52); HEMOGLOBIN 7.9 g/dL (14.0-18.0); MEAN CELL VOLUME 89.9 fL (80-100); MEAN CORPUSCULAR HEMOGLOBIN 29.5 pg (25-34); MEAN CORPUSCULAR HGB CONC 32.8 g/dl (32-36); MEAN PLATELET VOLUME 9.7 fL (7.4-10.4); PLATELET COUNT 302 K/uL (130-400); RED CELL DISTRIBUTION WIDTH CV 14.6 % (11.5-14.5); RED CELL DISTRIBUTION WIDTH SD 47.9 fL (36.4-46.3); WHITE BLOOD COUNT 6.49 K/uL (4.8-10.8)
[2017-11-14 08:30] LABS: CALCIUM 7.6 mg/dl (8.5-10.1); CREATININE 0.52 mg/dl (0.60-1.40); POTASSIUM 3.1 mmol/L (3.5-5.1)
[2017-11-14] MEDS ORDERED: AMPICILLIN/SULBACTAM CONSULT ACTIVE PRN (09:00)
[2017-11-14] MEDS: D5W AND 1/2NSS + 40MEQ KCL 1,000 ML IV SCH ×2 (10:15→19:03)
[2017-11-14] MEDS: AMPICILLIN/SULBACTAM SOD INJ 3,000 MG in SODIUM CHLORIDE 0.9% 100ML 100 ML IV SCH ×3 (11:37→23:42)
[2017-11-14] MEDS: COLLAGENASE OINT 30 GM TUBE EXT SCH (13:00)
--- NOTE | 2017-11-14 15:42 | Infectious Disease Progress Nt ---
Progress Note Date of Service Nov 14, 2017. Subjective Pt evaluation today including: conversation w/ patient, conversation w/ family , physical exam, chart review, lab review, review of studies, conversation w/ family consultant, review of inpatient medication list Patient remains nonverbal. Wound care follow-up noted. Remains afebrile. Cultures growing Proteus and E coli. Patient changed to IV Unasyn. Additional Comments: Not obtainable because of patient's mental status Medications Current Inpatient Medications Medications (Trade) Dose Ordered Sig/Amos Route Start Time Stop Time Status Last Admin Dose Admin Polyethylene (Miralax Powder Packet) 17 gm DAILY PRN PO 11/11/17 22:30 12/11/17 22:29 Ondansetron HCl (Zofran Inj) 4 mg Q6H PRN IV 11/11/17 21:15 12/11/17 21:14 Acetaminophen (Tylenol Supp) 650 mg Q4H PRN MD 11/11/17 22:00 12/11/17 21:59 Morphine Sulfate (MoRPHine SULFATE INJ) 1 mg Q4H PRN IV 11/11/17 22:00 11/25/17 21:59 11/14/17 12:03 1 MG Olanzapine (Zyprexa Tab) 2.5 mg HS PO 11/12/17 21:00 12/12/17 20:59 Tamsulosin HCl (Flomax Cap) 0.4 mg HS PO 11/12/17 21:00 12/12/17 20:59 Trazodone HCl (Desyrel Tab) 50 mg HS PRN PO 11/11/17 22:00 12/11/17 21:59 Lorazepam (Ativan Tab) 1 mg Q6H PRN SL 11/11/17 22:30 12/11/17 22:29 Enoxaparin Sodium (Lovenox Inj) 80 mg Q12H SQ 11/14/17 08:00 12/14/17 07:59 11/14/17 07:21 80 MG Potassium Chloride/Dextrose/ Sod Cl 1,000 ml @ 125 mls/hr Q8H IV 11/14/17 10:30 12/14/17 10:29 11/14/17 10:15 125 MLS/HR Ampicillin Sodium/ Sulbactam Sodium 3000 mg/Sodium Chloride 108 ml @ 200 mls/hr Q6H IV 11/14/17 12:00 12/14/17 11:59 11/14/17 11:37 200 MLS/HR Ampicillin Sodium/ Sulbactam Sodium (Consult) 1 ea UD PRN N/A 11/14/17 09:00 12/14/17 08:59 Collagenase (Santyl Oint) 1 appln DAILY EXT 11/14/17 13:00 12/14/17 12:59 11/14/17 13:00 1 APPLN Objective Vital Signs Date Time Temp Pulse Resp B/P (MAP) Pulse Ox O2 Delivery O2 Flow Rate FiO2 11/14/17 08:00 Room Air 11/14/17 07:34 37.1 66 14 112/58 (76) 96 Room Air 11/14/17 00:08 36.6 57 18 162/84 (110) 95 Room Air 11/14/17 00:00 Room Air 11/13/17 15:45 Room Air Physical Exam General Appearance: WD/WN, no apparent distress, + pertinent finding (Non verbal) Eyes: normal inspection, sclerae normal ENT: normal ENT inspection, pharynx normal Neck: supple, no adenopathy, trachea midline Respiratory/Chest: chest non-tender, lungs clear, normal breath sounds, no respiratory distress Cardiovascular: regular rate, rhythm, no gallop, no murmur Abdomen: normal bowel sounds, non tender, soft, no organomegaly Extremities: non-tender, no calf tenderness Neurologic/Psychiatric: + pertinent finding (Patient nonverbal, no obvious new deficits) Skin: normal color, no rash, + pertinent finding (Large buttock decubitus with some necrotic material and foul odor.) Lymphatic: no adenopathy Laboratory Results RUN DATE: 11/14/17 [facility] LAB PAGE 1 RUN TIME: 703 Specimen Inquiry PATIENT: MECCA PA LOC: [id number] U # : [id number] AGE/SX: 82/M ROOM: W458 REG : 11/11/[address]: Alfred Randle M.D. : 1935 BED: 1 DIS : STATUS: ADM IN TLOC: SPEC #: [id number] GLORIA: 11/11/17 STATUS: RES REQ #: [id number] RECD: 11/11/[address] [facility] [address]: Jane Eubanks PA-C SOURCE: ULCER ENTR: 11/11/[address]: Pasha Joy M.D. SPDESC: Rahat Valerio M.D. Wong, Gary K., M.D. ORDERED: SURF [facility] WILMA/KOBY COMMENTS: Has Specimen Been Obtained/Collected? Y Procedure Result Verified Site GRAM STAIN Final 11/12/17-075 RESULT MANY GRAM POSITIVE COCCI MANY GRAM POSITIVE BACILLI MANY GRAM NEGATIVE BACILLI MANY WBCs SEEN SURFACE WOUND CULTURE Preliminary 11/14/17 Organism 1 PROTEUS MIRABILIS QUANITY MODERATE SENS SENSITIVITY TO FOLLOW +MIXWOUND PLUS LOW COUNTS OF PROBABLE SKIN CLARK Organism 2 ESCHERICHIA COLI QUANITY FEW SENS SENSITIVITY TO FOLLOW P. MIRABIL E COLI M.I.C. RX M.I.C. RX --------- ------ --------- ------ TRIMET/SULFA <=2/38 S <=2/38 S AMPICILLIN >16 R <=8 S AMPICILLIN/SUL <=8/4 S <=8/4 S CEFAZOLIN <=8 S <=8 S CEFOXITIN <=8 S <=8 S CEFOTAXIME <=2 S <=2 S CEFTRIAXONE <=1 S <=1 S CEFEPIME <=4 S <=4 S CEFUROXIME <=4 S 8 S IMIPENEM <=1 S GENTAMICIN <=4 S <=4 S TOBRAMYCIN <=4 S <=4 S AMIKACIN <=16 S <=16 S CIPROFLOXACIN 2 I <=1 S LEVOFLOXACIN <=2 S <=2 S ERTAPENEM <=1 S <=1 S PIP/TAZO <=16 S <=16 S CONTINUED ON NEXT PAGE RUN DATE: 11/14/17 [facility] LAB PAGE 2 RUN TIME: 703 Specimen Inquiry SPEC: [id number] PATIENT: MECCA PA Jane [id number] ( Continued) Procedure Result Verified Site SURFACE WOUND CULTURE Preliminary (continued) 11/14/17 1. PROTEUS MIRABILIS Target Route Dose RX AB Cost M.I.C. IQ ------ ----- ------ -- ------ -------- - ------ TRIMET/SULFA S <=2/38 AMPICILLIN R >16 AMPICILLIN/SUL S <=8/4 CEFAZOLIN S <=8 CEFOXITIN S <=8 CEFOTAXIME S <=2 CEFTRIAXONE S <=1 CEFEPIME S <=4 CEFUROXIME S <=4 GENTAMICIN S <=4 TOBRAMYCIN S <=4 AMIKACIN S <=16 CIPROFLOXACIN I 2 LEVOFLOXACIN S <=2 ERTAPENEM S <=1 PIP/TAZO S <=16 2. ESCHERICHIA COLI Target Route Dose RX AB Cost M.I.C. IQ ------ ----- ------ -- ------ -------- - ------ TRIMET/SULFA S <=2/38 AMPICILLIN S <=8 AMPICILLIN/SUL S <=8/4 CEFAZOLIN S <=8 CEFOXITIN S <=8 CEFOTAXIME S <=2 CEFTRIAXONE S <=1 CEFEPIME S <=4 CEFUROXIME S 8 IMIPENEM S <=1 GENTAMICIN S <=4 TOBRAMYCIN S <=4 AMIKACIN S <=16 CIPROFLOXACIN S <=1 LEVOFLOXACIN S <=2 ERTAPENEM S <=1 PIP/TAZO S <=16 S = SENSITIVE I = INTERMEDIATE R = RESISTANT END OF REPORT Last 24 Hours Test 11/14/17 07:13 White Blood Count 6.49 K/uL Red Blood Count 2.68 M/uL Hemoglobin 7.9 g/dL Hematocrit 24.1 % Mean Corpuscular Volume 89.9 fL Mean Corpuscular Hemoglobin 29.5 pg Mean Corpuscular Hemoglobin Concent 32.8 g/dl RDW Standard Deviation 47.9 fL RDW Coefficient of Variation 14.6 % Platelet Count 302 K/uL Mean Platelet Volume 9.7 fL Sodium Level 141 mmol/L Potassium Level 3.1 mmol/L Chloride Level 108 mmol/L Carbon Dioxide Level 25 mmol/L Anion Gap 8.0 mmol/L Blood Urea Nitrogen 9 mg/dl Creatinine 0.52 mg/dl Est Creatinine Clear Calc Drug Dose 90.5 ml/min Estimated GFR () 114.3 Estimated GFR (Non- 98.6 BUN/Creatinine Ratio 17.4 Random Glucose 125 mg/dl Calcium Level 7.6 mg/dl Assessment and Plan 82-year-old male, nonverbal, bedridden, with fever and clinical picture of sepsis with leukocytosis and elevated lactic acid, with large buttock ulcer, likely source of sepsis. Given negative MRSA swab and culture results, Unasyn appropriate therapy for now. Will likely need somewhat prolonged course of IV antibiotics along with continued wound care to treat his decubiti. Will continue to follow.
[2017-11-14 17:17] VITALS: BP 131/80; PULSE 84; TEMP 36.4; O2SAT 96
--- NOTE | 2017-11-14 20:36 | Progress Note ---
Medicine Progress Note Date & Time of Visit: Nov 14, 2017 at 19:40 . Subjective CC: Follow-up visit for sepsis, decubitus ulcers, and other problems. HPI: More alert. Better PO intake; requires assistance. Seen by Wound Care earlier. visiting earlier today and given update. No fever. ROS: Patient unable to provide responses. . Objective Last 8 Hrs Date Time Temp Pulse Resp B/P (MAP) Pulse Ox O2 Delivery O2 Flow Rate FiO2 11/14/17 17:17 36.4 84 18 131/80 (97) 96 Room Air 11/14/17 16:00 Room Air Physical Exam: General- chronically ill-appearing, no acute distress Lungs- clear Cardiovascular- RRR, no gallop appreciated; no JVD; no pretibial edema Abdomen- + BS, soft, nontender Extremities- no cyanosis; no calf tenderness Neuro- more alert, nonverbal Skin- warm & dry; decubitus ulcers as documented by undersigned on 11/12 and by Wound Care Nursing . Laboratory Results: Last 24 Hours Test 11/14/17 07:13 White Blood Count 6.49 K/uL Red Blood Count 2.68 M/uL Hemoglobin 7.9 g/dL Hematocrit 24.1 % Mean Corpuscular Volume 89.9 fL Mean Corpuscular Hemoglobin 29.5 pg Mean Corpuscular Hemoglobin Concent 32.8 g/dl RDW Standard Deviation 47.9 fL RDW Coefficient of Variation 14.6 % Platelet Count 302 K/uL Mean Platelet Volume 9.7 fL Sodium Level 141 mmol/L Potassium Level 3.1 mmol/L Chloride Level 108 mmol/L Carbon Dioxide Level 25 mmol/L Anion Gap 8.0 mmol/L Blood Urea Nitrogen 9 mg/dl Creatinine 0.52 mg/dl Est Creatinine Clear Calc Drug Dose 90.5 ml/min Estimated GFR () 114.3 Estimated GFR (Non- 98.6 BUN/Creatinine Ratio 17.4 Random Glucose 125 mg/dl Calcium Level 7.6 mg/dl Assessment & Plan SEPSIS Met criteria for sepsis per 2001 definition and current CMS guidelines- leukocytosis, tachycardia, tachypnea. Likely source = infected sacral decubitus ulcer. Wound cultures obtained. Received broad spectrum antibiotic coverage with piperacillin / tazobactam + vancomycin. Serum lactate 2.22, repeat 1.6. BP's > 90 systolic. Further management as discussed below. DECUBITUS ULCERS Decubitus ulcers of sacrum and bilateral heels. Sacral ulcer is unstageable, but appears to be deep. Initially received IV vancomycin and piperacillin / tazobactam. ID consulted and Wound Care consulted. Nasal MRSA screen negative. Stopped vancomycin. Wound culture growing Proteus mirabilis and E coli. Transitioned from IV piperacillin / tazobactam to ampicillin / sulbactam. Reposition q 2 hrs. Specialty bed per Wound Care Nursing. ID consulted. Wound Care consulted. 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 Monitor for delirium. BPH Continue tamsulosin. 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 Will probably need ongoing indwelling Disla catheter until wound heals. VTE PROPHYLAXIS / RECENT DVT Recent DVT & PE treated with rivaroxaban. Rivaroxaban order continued at time of admission, but not taking PO meds. Transitioned to SQ enoxaparin. DISPOSITION To be determined. Will most likely require long-term chcf care. Spouse visiting earlier today and given update. . Current Inpatient Medications: Current Inpatient Medications Medications (Trade) Dose Ordered Sig/Amos Route Start Time Stop Time Status Last Admin Dose Admin Polyethylene (Miralax Powder Packet) 17 gm DAILY PRN PO 11/11/17 22:30 12/11/17 22:29 Ondansetron HCl (Zofran Inj) 4 mg Q6H PRN IV 11/11/17 21:15 12/11/17 21:14 Acetaminophen (Tylenol Supp) 650 mg Q4H PRN TN 11/11/17 22:00 12/11/17 21:59 Morphine Sulfate (MoRPHine SULFATE INJ) 1 mg Q4H PRN IV 11/11/17 22:00 11/25/17 21:59 11/14/17 16:43 1 MG Olanzapine (Zyprexa Tab) 2.5 mg HS PO 11/12/17 21:00 12/12/17 20:59 Tamsulosin HCl (Flomax Cap) 0.4 mg HS PO 11/12/17 21:00 12/12/17 20:59 Trazodone HCl (Desyrel Tab) 50 mg HS PRN PO 11/11/17 22:00 12/11/17 21:59 Lorazepam (Ativan Tab) 1 mg Q6H PRN SL 11/11/17 22:30 12/11/17 22:29 Enoxaparin Sodium (Lovenox Inj) 80 mg Q12H SQ 11/14/17 08:00 12/14/17 07:59 11/14/17 07:21 80 MG Potassium Chloride/Dextrose/ Sod Cl 1,000 ml @ 125 mls/hr Q8H IV 11/14/17 10:30 12/14/17 10:29 11/14/17 19:03 125 MLS/HR Ampicillin Sodium/ Sulbactam Sodium 3000 mg/Sodium Chloride 108 ml @ 200 mls/hr Q6H IV 11/14/17 12:00 12/14/17 11:59 11/14/17 17:59 200 MLS/HR Ampicillin Sodium/ Sulbactam Sodium (Consult) 1 ea UD PRN N/A 11/14/17 09:00 12/14/17 08:59 Collagenase (Santyl Oint) 1 appln DAILY EXT 11/14/17 13:00 12/14/17 12:59 11/14/17 13:00 1 APPLN
[2017-11-14] MEDS: OLANZAPINE 2.5 MG TAB PO SCH (21:10)
[2017-11-14] MEDS: TAMSULOSIN HCL 0.4 MG CAP PO SCH (21:10)
[2017-11-15 00:49] VITALS: BP 143/80; PULSE 67; TEMP 37.2; O2SAT 94
[2017-11-15] MEDS ORDERED: VANCOMYCIN TROUGH ONE (03:30)
[2017-11-15] MEDS: D5W AND 1/2NSS + 40MEQ KCL 1,000 ML IV SCH ×3 (03:31→18:40)
[2017-11-15] MEDS: AMPICILLIN/SULBACTAM SOD INJ 3,000 MG in SODIUM CHLORIDE 0.9% 100ML 100 ML IV SCH ×3 (06:05→18:40)
[2017-11-15 07:57] VITALS: BP 127/67; PULSE 71; TEMP 36.9; O2SAT 96
[2017-11-15 08:07] LABS: HEMATOCRIT 27.7 % (42-52); HEMOGLOBIN 8.8 g/dL (14.0-18.0); MEAN CELL VOLUME 90.8 fL (80-100); MEAN CORPUSCULAR HEMOGLOBIN 28.9 pg (25-34); MEAN CORPUSCULAR HGB CONC 31.8 g/dl (32-36); MEAN PLATELET VOLUME 9.9 fL (7.4-10.4); PLATELET COUNT 326 K/uL (130-400); RED CELL DISTRIBUTION WIDTH CV 14.6 % (11.5-14.5); RED CELL DISTRIBUTION WIDTH SD 48.6 fL (36.4-46.3); WHITE BLOOD COUNT 6.89 K/uL (4.8-10.8)
[2017-11-15 08:47] LABS: CREATININE 0.51 mg/dl (0.60-1.40); POTASSIUM 3.9 mmol/L (3.5-5.1)
[2017-11-15] MEDS: ENOXAPARIN 80 MG/0.8 ML SYR SQ SCH ×2 (08:47→21:13)
[2017-11-15] MEDS: COLLAGENASE OINT 30 GM TUBE EXT SCH (08:47)
--- NOTE | 2017-11-15 10:25 | Wound Consultation: Inpatient ---
Wound Consultation Date of Consultation: Nov 14, 2017. Attending Physician: Alfred Randle M.D. Reason for Consultation: Sacral ulcer. Bilateral heel ulcers. History of Present Illness Patient was admitted to [facility] 3 days prior for further evaluation and treatment of a large sacral pressure ulcer. Patient also has ulcerations to both heel regions. Patient at the current time is unable to provide any history due to his chronic medical and mental status changes. Apparently the patient according to the who is given history before to the staff the patient had at one time been under hospice care but recently has been removed from that status. Patient's was not present during the current examination. Further history is deferred at this time. Family History Blood clots MOTHER (? pulmonary embolism) Myocardial infarction FATHER Social History Smoking Status: Unknown if Ever Smoked Smokeless Tobacco Use: No Alcohol Use: none Drug Use: none Marital Status: Housing Status: lives with significant other Occupation Status: retired Allergies Coded Allergies: Rivastigmine (Verified Allergy, Intermediate, NEURO COMPLICATIONS/RASH, 07/05/17) Home Medications Scheduled Morphine Sulfate (Morphine Sulfate), 0.25-0.5 ML PO Q1H Olanzapine (Zyprexa), 2.5 MG PO HS Rivaroxaban (Xarelto), 1 TAB PO DAILY Tamsulosin Hcl (Flomax), 0.4 MG PO HS Scheduled PRN Acetaminophen (Tylenol), 650 MG IA Q4 PRN for Pain Acetaminophen Tab (Tylenol), 650 MG PO Q4 PRN for Pain Diazepam (Valium), 5 MG PO Q6 PRN for Anxiety Glycopyrrolate (Glycopyrrolate), 1-2 TABS PO Q4 PRN for ACID Lorazepam (Lorazepam), 1 MG UT Q4 PRN for Anxiety/Agitation Promethazine Hcl (Phenergan), 25 MG PO Q6H PRN for Nausea Trazodone Hcl (Trazodone), 50 MG PO HS PRN for Agitation Inpatient Medications Current Inpatient Medications Medications (Trade) Dose Ordered Sig/Amos Route Start Time Stop Time Status Last Admin Dose Admin Polyethylene (Miralax Powder Packet) 17 gm DAILY PRN PO 11/11/17 22:30 12/11/17 22:29 Ondansetron HCl (Zofran Inj) 4 mg Q6H PRN IV 11/11/17 21:15 12/11/17 21:14 Acetaminophen (Tylenol Supp) 650 mg Q4H PRN IA 11/11/17 22:00 12/11/17 21:59 Morphine Sulfate (MoRPHine SULFATE INJ) 1 mg Q4H PRN IV 11/11/17 22:00 11/25/17 21:59 11/14/17 23:43 1 MG Olanzapine (Zyprexa Tab) 2.5 mg HS PO 11/12/17 21:00 12/12/17 20:59 Tamsulosin HCl (Flomax Cap) 0.4 mg HS PO 11/12/17 21:00 12/12/17 20:59 Trazodone HCl (Desyrel Tab) 50 mg HS PRN PO 11/11/17 22:00 12/11/17 21:59 Lorazepam (Ativan Tab) 1 mg Q6H PRN SL 11/11/17 22:30 12/11/17 22:29 Enoxaparin Sodium (Lovenox Inj) 80 mg Q12H SQ 11/14/17 08:00 12/14/17 07:59 11/15/17 08:47 80 MG Potassium Chloride/Dextrose/ Sod Cl 1,000 ml @ 125 mls/hr Q8H IV 11/14/17 10:30 12/14/17 10:29 11/15/17 09:45 125 MLS/HR Ampicillin Sodium/ Sulbactam Sodium 3000 mg/Sodium Chloride 108 ml @ 200 mls/hr Q6H IV 11/14/17 12:00 12/14/17 11:59 11/15/17 06:05 200 MLS/HR Ampicillin Sodium/ Sulbactam Sodium (Consult) 1 ea UD PRN N/A 11/14/17 09:00 12/14/17 08:59 Collagenase (Santyl Oint) 1 appln DAILY EXT 11/14/17 13:00 12/14/17 12:59 11/15/17 08:47 1 APPLN Physical Exam Date Time Temp Pulse Resp B/P (MAP) Pulse Ox O2 Delivery O2 Flow Rate FiO2 11/15/17 07:57 36.9 71 20 127/67 (87) 96 Room Air 11/15/17 00:49 37.2 67 22 143/80 (101) 94 Room Air 11/15/17 00:00 Room Air 11/14/17 22:00 Room Air 11/14/17 17:17 36.4 84 18 131/80 (97) 96 Room Air 11/14/17 16:00 Room Air General: The patient is in a hospital bed in no apparent distress. Alert but does not respond to any specific commands. HEENT: Pupils equal and reactive to light. Sclera clear, Neck: Supple, No JVD noted Chest: CTA in all gonzales. No deformity Heart: RRR without murmurs, S3, S4, thrills, rubs or heaves Back: A large sacral ulceration is present. There is a significant central eschar as well as slough present. A fell odor is noted. No active drainage present. No significant periwound erythema or fluctuance noted. Measurements of the ulceration following debridement were 9 x 6 x 4 cm. Tunneling at 1:00 was 5.5 cm. No bone is currently exposed. Extremities: Both heels demonstrated the presence of pressure ulcerations. The right heel measures 5.7 x 3 x 0 cm. The left heel measures 4.5 x 3 x 0.3 cm. There is eschar formation noted. There is no active drainage or odor noted. No significant periwound erythema present. Neurological: Alert but does not respond to commands. No apparent focal deficits noted. Laboratory Results Last 24 Hours Test 11/15/17 07:41 White Blood Count 6.89 K/uL Red Blood Count 3.05 M/uL Hemoglobin 8.8 g/dL Hematocrit 27.7 % Mean Corpuscular Volume 90.8 fL Mean Corpuscular Hemoglobin 28.9 pg Mean Corpuscular Hemoglobin Concent 31.8 g/dl RDW Standard Deviation 48.6 fL RDW Coefficient of Variation 14.6 % Platelet Count 326 K/uL Mean Platelet Volume 9.9 fL Sodium Level 140 mmol/L Potassium Level 3.9 mmol/L Chloride Level 109 mmol/L Carbon Dioxide Level 24 mmol/L Anion Gap 7.0 mmol/L Blood Urea Nitrogen 6 mg/dl Creatinine 0.51 mg/dl Est Creatinine Clear Calc Drug Dose 92.3 ml/min Estimated GFR () 115.2 Estimated GFR (Non- 99.4 BUN/Creatinine Ratio 11.0 Random Glucose 110 mg/dl Calcium Level 8.0 mg/dl Assessment & Plan Assessment: Stage III sacral ulcer Stage III pressure ulcer left heel Unstageable pressure ulcer right heel Plan: The sacral ulcer did require debridement. Surrounding eschar underlying slough and subcutaneous tissue was removed with scissors and forceps. Minimal bleeding occurred which was controlled with direct pressure. The site will be dressed with Santyl and gauze packing changed on a daily basis. Both he also be managed with waffle boots and Aquasol AG and gauze dressings changed daily. Patient will continue to be monitored during his hospitalization consideration VAC therapy will be made in the next 2-3 days regarding the sacral ulceration. This represented an excisional debridement of 54 cm.
[2017-11-15 15:22] VITALS: BP 134/89; PULSE 77; TEMP 37.5; O2SAT 94
--- NOTE | 2017-11-15 15:45 | Infectious Disease Progress Nt ---
Progress Note Date of Service Nov 15, 2017. Subjective Pt evaluation today including: conversation w/ patient, conversation w/ family , physical exam, chart review, lab review, review of studies, conversation w/ oncology consultant, review of inpatient medication list Patient remains nonverbal. Appears unchanged. Wound care consult noted. Debridement performed. No fever. Tolerating his antibiotic without apparent difficulty. All Other Systems: Reviewed and Negative Medications Current Inpatient Medications Medications (Trade) Dose Ordered Sig/Amos Route Start Time Stop Time Status Last Admin Dose Admin Polyethylene (Miralax Powder Packet) 17 gm DAILY PRN PO 11/11/17 22:30 12/11/17 22:29 Ondansetron HCl (Zofran Inj) 4 mg Q6H PRN IV 11/11/17 21:15 12/11/17 21:14 Acetaminophen (Tylenol Supp) 650 mg Q4H PRN DE 11/11/17 22:00 12/11/17 21:59 Morphine Sulfate (MoRPHine SULFATE INJ) 1 mg Q4H PRN IV 11/11/17 22:00 11/25/17 21:59 11/14/17 23:43 1 MG Olanzapine (Zyprexa Tab) 2.5 mg HS PO 11/12/17 21:00 12/12/17 20:59 Tamsulosin HCl (Flomax Cap) 0.4 mg HS PO 11/12/17 21:00 12/12/17 20:59 Trazodone HCl (Desyrel Tab) 50 mg HS PRN PO 11/11/17 22:00 12/11/17 21:59 Lorazepam (Ativan Tab) 1 mg Q6H PRN SL 11/11/17 22:30 12/11/17 22:29 Enoxaparin Sodium (Lovenox Inj) 80 mg Q12H SQ 11/14/17 08:00 12/14/17 07:59 11/15/17 08:47 80 MG Potassium Chloride/Dextrose/ Sod Cl 1,000 ml @ 125 mls/hr Q8H IV 11/14/17 10:30 12/14/17 10:29 11/15/17 09:45 125 MLS/HR Ampicillin Sodium/ Sulbactam Sodium 3000 mg/Sodium Chloride 108 ml @ 200 mls/hr Q6H IV 11/14/17 12:00 12/14/17 11:59 11/15/17 11:39 200 MLS/HR Ampicillin Sodium/ Sulbactam Sodium (Consult) 1 ea UD PRN N/A 11/14/17 09:00 12/14/17 08:59 Collagenase (Santyl Oint) 1 appln DAILY EXT 11/14/17 13:00 12/14/17 12:59 11/15/17 08:47 1 APPLN Objective Vital Signs Date Time Temp Pulse Resp B/P (MAP) Pulse Ox O2 Delivery O2 Flow Rate FiO2 11/15/17 15:22 37.5 77 18 134/89 (104) 94 Room Air 11/15/17 08:00 Room Air 11/15/17 07:57 36.9 71 20 127/67 (87) 96 Room Air 11/15/17 00:49 37.2 67 22 143/80 (101) 94 Room Air 11/15/17 00:00 Room Air 11/14/17 22:00 Room Air 11/14/17 17:17 36.4 84 18 131/80 (97) 96 Room Air 11/14/17 16:00 Room Air Physical Exam General Appearance: WD/WN, no apparent distress, + pertinent finding (Non verbal) Eyes: normal inspection, EOMI, sclerae normal ENT: normal ENT inspection, pharynx normal Neck: supple, no adenopathy, trachea midline Respiratory/Chest: chest non-tender, lungs clear, normal breath sounds, no respiratory distress Cardiovascular: regular rate, rhythm, no gallop, no murmur Abdomen: normal bowel sounds, non tender, soft, no organomegaly Extremities: non-tender, no calf tenderness Neurologic/Psychiatric: alert, + pertinent finding (Non verbal) Skin: normal color, no rash, + pertinent finding (Sacral decubitus now dressed , no worsening of his heel ulcerations) Lymphatic: no adenopathy Laboratory Results RUN DATE: 11/13/17 [facility] LAB PAGE 1 RUN TIME: 1308 Specimen Inquiry PATIENT: MECCA PA LOC: RoelMS4W U # : [id number] AGE/SX: 82/M ROOM: [facility] REG : 11/11/[address]: Alfred Randle M.D. : 1935 BED: 1 DIS : STATUS: ADM IN TLOC: SPEC #: [id number] GLORIA: 11/13/17 STATUS: COMP REQ #: [id number] RECD: 11/13/[address]: Alfred Randle M.D. SOURCE: NASAL ENTR: 11/13/17-[address]: Gladis Olmos DO SPDESC: Jennifer. Murphy D.O. Rifkah, Elias, M.D. Shaw, Mark R., DO Wong, Gary K., M.D. ORDERED: MRSA DNA COMMENTS: Has Specimen Been Obtained/Collected? Y Procedure Result Verified Site MRSA DNA (NASAL SWAB) Final 11/13/17-1308 Specimen Negative for MRSA by DNA Probe Last 24 Hours Test 11/15/17 07:41 White Blood Count 6.89 K/uL Red Blood Count 3.05 M/uL Hemoglobin 8.8 g/dL Hematocrit 27.7 % Mean Corpuscular Volume 90.8 fL Mean Corpuscular Hemoglobin 28.9 pg Mean Corpuscular Hemoglobin Concent 31.8 g/dl RDW Standard Deviation 48.6 fL RDW Coefficient of Variation 14.6 % Platelet Count 326 K/uL Mean Platelet Volume 9.9 fL Sodium Level 140 mmol/L Potassium Level 3.9 mmol/L Chloride Level 109 mmol/L Carbon Dioxide Level 24 mmol/L Anion Gap 7.0 mmol/L Blood Urea Nitrogen 6 mg/dl Creatinine 0.51 mg/dl Est Creatinine Clear Calc Drug Dose 92.3 ml/min Estimated GFR () 115.2 Estimated GFR (Non- 99.4 BUN/Creatinine Ratio 11.0 Random Glucose 110 mg/dl Calcium Level 8.0 mg/dl Assessment and Plan 82-year-old male, nonverbal, bedridden, with fever and clinical picture of sepsis with leukocytosis and elevated lactic acid, with large buttock ulcer, likely source of sepsis. Given negative MRSA swab and culture results, Unasyn appropriate therapy for now. Agree with probable need for wound VAC placement. Patient be continued on Unasyn for now. Will follow.
[2017-11-15 16:08] VITALS: O2SAT 94
--- NOTE | 2017-11-15 21:02 | Progress Note ---
Medicine Progress Note Date & Time of Visit: Nov 15, 2017 at 11:40 . Subjective CC: Follow-up visit for sepsis, decubitus ulcers, and other problems. HPI: Afebrile. Somnolent most of the time. Requires assistance with eating / drinking. No diarrhea. Has Disla cath because of sacral decubitus ulcer. ROS: Patient unable to provide responses. . Objective Last 8 Hrs Date Time Temp Pulse Resp B/P (MAP) Pulse Ox O2 Delivery O2 Flow Rate FiO2 11/15/17 08:00 Room Air 11/15/17 07:57 36.9 71 20 127/67 (87) 96 Room Air Physical Exam: General- chronically ill-appearing, no acute distress Lungs- clear Cardiovascular- RRR, no gallop appreciated; no JVD; no pretibial edema Abdomen- + BS, soft, nontender Extremities- no cyanosis; no calf tenderness Neuro- somnolent Skin- warm & dry; decubitus ulcers as documented by undersigned on 11/12 and by Wound Care Nursing . Laboratory Results: Last 24 Hours Test 11/15/17 07:41 White Blood Count 6.89 K/uL Red Blood Count 3.05 M/uL Hemoglobin 8.8 g/dL Hematocrit 27.7 % Mean Corpuscular Volume 90.8 fL Mean Corpuscular Hemoglobin 28.9 pg Mean Corpuscular Hemoglobin Concent 31.8 g/dl RDW Standard Deviation 48.6 fL RDW Coefficient of Variation 14.6 % Platelet Count 326 K/uL Mean Platelet Volume 9.9 fL Sodium Level 140 mmol/L Potassium Level 3.9 mmol/L Chloride Level 109 mmol/L Carbon Dioxide Level 24 mmol/L Anion Gap 7.0 mmol/L Blood Urea Nitrogen 6 mg/dl Creatinine 0.51 mg/dl Est Creatinine Clear Calc Drug Dose 92.3 ml/min Estimated GFR () 115.2 Estimated GFR (Non- 99.4 BUN/Creatinine Ratio 11.0 Random Glucose 110 mg/dl Calcium Level 8.0 mg/dl Assessment & Plan SEPSIS Met criteria for sepsis per 2001 definition and current CMS guidelines- leukocytosis, tachycardia, tachypnea. Likely source = infected sacral decubitus ulcer. Wound cultures obtained. Received broad spectrum antibiotic coverage with piperacillin / tazobactam + vancomycin. Serum lactate 2.22, repeat 1.6. BP's > 90 systolic. Further management as discussed below. DECUBITUS ULCERS Decubitus ulcers of sacrum and bilateral heels. Sacral ulcer is unstageable, but appears to be deep. Initially received IV vancomycin and piperacillin / tazobactam. ID consulted and Wound Care consulted. Nasal MRSA screen negative. Stopped vancomycin. Wound culture growing Proteus mirabilis and E coli. Transitioned from IV piperacillin / tazobactam to ampicillin / sulbactam. Reposition q 2 hrs. Specialty bed per Wound Care Nursing. ID consulted. Wound Care consulted; sacral wound debrided. Continue local care, enzymatic debridement, IV ampicillin / sulbactam. 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 Monitor for delirium. BPH Continue tamsulosin. 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 Will probably need ongoing indwelling Disla catheter until wound heals. VTE PROPHYLAXIS / RECENT DVT Recent DVT & PE treated with rivaroxaban. Rivaroxaban order continued at time of admission, but not taking PO meds consistently. Transitioned to SQ enoxaparin. DISPOSITION To be determined. Will most likely require long-term snf care. . Current Inpatient Medications: Current Inpatient Medications Medications (Trade) Dose Ordered Sig/Amos Route Start Time Stop Time Status Last Admin Dose Admin Polyethylene (Miralax Powder Packet) 17 gm DAILY PRN PO 11/11/17 22:30 12/11/17 22:29 Ondansetron HCl (Zofran Inj) 4 mg Q6H PRN IV 11/11/17 21:15 12/11/17 21:14 Acetaminophen (Tylenol Supp) 650 mg Q4H PRN [place] 11/11/17 22:00 12/11/17 21:59 Morphine Sulfate (MoRPHine SULFATE INJ) 1 mg Q4H PRN IV 11/11/17 22:00 11/25/17 21:59 11/14/17 23:43 1 MG Olanzapine (Zyprexa Tab) 2.5 mg HS PO 11/12/17 21:00 12/12/17 20:59 Tamsulosin HCl (Flomax Cap) 0.4 mg HS PO 11/12/17 21:00 12/12/17 20:59 Trazodone HCl (Desyrel Tab) 50 mg HS PRN PO 11/11/17 22:00 12/11/17 21:59 Lorazepam (Ativan Tab) 1 mg Q6H PRN [place] 11/11/17 22:30 12/11/17 22:29 Enoxaparin Sodium (Lovenox Inj) 80 mg Q12H SQ 11/14/17 08:00 12/14/17 07:59 11/15/17 08:47 80 MG Potassium Chloride/Dextrose/ Sod Cl 1,000 ml @ 125 mls/hr Q8H IV 11/14/17 10:30 12/14/17 10:29 11/15/17 09:45 125 MLS/HR Ampicillin Sodium/ Sulbactam Sodium 3000 mg/Sodium Chloride 108 ml @ 200 mls/hr Q6H IV 11/14/17 12:00 12/14/17 11:59 11/15/17 11:39 200 MLS/HR Ampicillin Sodium/ Sulbactam Sodium (Consult) 1 ea UD PRN N/A 11/14/17 09:00 12/14/17 08:59 Collagenase (Santyl Oint) 1 appln DAILY EXT 11/14/17 13:00 12/14/17 12:59 11/15/17 08:47 1 APPLN
[2017-11-15] MEDS: TAMSULOSIN HCL 0.4 MG CAP PO SCH (21:14)
[2017-11-15] MEDS: OLANZAPINE 2.5 MG TAB PO SCH (21:14)
[2017-11-15 22:26] VITALS: BP 148/89; PULSE 80; TEMP 37; O2SAT 94
[2017-11-16] MEDS: AMPICILLIN/SULBACTAM SOD INJ 3,000 MG in SODIUM CHLORIDE 0.9% 100ML 100 ML IV SCH ×4 (00:39→19:40)
[2017-11-16] MEDS: MoRPHine SULFATE 2 MG/ML CARP IV PRN ×2 (00:40→19:41)
[2017-11-16] MEDS: D5W AND 1/2NSS + 40MEQ KCL 1,000 ML IV SCH ×3 (03:29→19:03)
[2017-11-16 08:01] VITALS: BP 150/80; PULSE 82; TEMP 37; O2SAT 94
[2017-11-16 09:02] LABS: HEMATOCRIT 31.2 % (42-52); HEMOGLOBIN 9.9 g/dL (14.0-18.0); MEAN CORPUSCULAR HEMOGLOBIN 28.9 pg (25-34); MEAN CORPUSCULAR HGB CONC 31.7 g/dl (32-36); MEAN PLATELET VOLUME 9.8 fL (7.4-10.4); PLATELET COUNT 355 K/uL (130-400); RED CELL DISTRIBUTION WIDTH CV 14.5 % (11.5-14.5); RED CELL DISTRIBUTION WIDTH SD 48.6 fL (36.4-46.3); WHITE BLOOD COUNT 9.06 K/uL (4.8-10.8)
[2017-11-16] MEDS: ENOXAPARIN 80 MG/0.8 ML SYR SQ SCH ×2 (09:18→19:43)
[2017-11-16 09:28] LABS: CREATININE 0.51 mg/dl (0.60-1.40); POTASSIUM 4.3 mmol/L (3.5-5.1)
[2017-11-16] MEDS: COLLAGENASE OINT 30 GM TUBE EXT SCH (14:36)
[2017-11-16 16:15] VITALS: BP 103/52; PULSE 63; TEMP 37.4; O2SAT 93
[2017-11-16 16:22] VITALS: O2SAT 94
[2017-11-16] MEDS: OLANZAPINE 2.5 MG TAB PO SCH (19:41)
[2017-11-16] MEDS: TAMSULOSIN HCL 0.4 MG CAP PO SCH (19:41)
[2017-11-16 22:55] VITALS: BP 132/66; PULSE 95; TEMP 37.3; O2SAT 96
--- NOTE | 2017-11-16 23:42 | Progress Note ---
Medicine Progress Note Date & Time of Visit: Nov 16, 2017 at 2020 . Subjective CC: Follow-up visit for sepsis, decubitus ulcers, and other problems. HPI: Afebrile. Requires assistance with eating / drinking. Nursing reports soft stool, but no diarrhea. Still has Disla cath because of sacral decubitus ulcer. ROS: Patient unable to provide responses. . Objective Last 8 Hrs Date Time Temp Pulse Resp B/P (MAP) Pulse Ox O2 Delivery O2 Flow Rate FiO2 11/16/17 22:55 37.3 95 18 132/66 (88) 96 Room Air 11/16/17 16:22 94 Room Air 11/16/17 16:15 37.4 63 22 103/52 (69) 93 Room Air Physical Exam: General- chronically ill-appearing, no acute distress Lungs- clear; no respiratory distress Cardiovascular- RRR, no gallop appreciated; no JVD; no pretibial edema Abdomen- + BS, soft, nontender Extremities- no cyanosis; no calf tenderness Neuro- somnolent Skin- warm & dry; decubitus ulcers as documented by undersigned on 11/12 and by Wound Care Nursing . Laboratory Results: Last 24 Hours Test 11/16/17 08:42 White Blood Count 9.06 K/uL Red Blood Count 3.43 M/uL Hemoglobin 9.9 g/dL Hematocrit 31.2 % Mean Corpuscular Volume 91.0 fL Mean Corpuscular Hemoglobin 28.9 pg Mean Corpuscular Hemoglobin Concent 31.7 g/dl RDW Standard Deviation 48.6 fL RDW Coefficient of Variation 14.5 % Platelet Count 355 K/uL Mean Platelet Volume 9.8 fL Sodium Level 140 mmol/L Potassium Level 4.3 mmol/L Chloride Level 108 mmol/L Carbon Dioxide Level 25 mmol/L Anion Gap 7.0 mmol/L Blood Urea Nitrogen 3 mg/dl Creatinine 0.51 mg/dl Est Creatinine Clear Calc Drug Dose 92.3 ml/min Estimated GFR () 115.2 Estimated GFR (Non- 99.4 BUN/Creatinine Ratio 5.8 Random Glucose 101 mg/dl Calcium Level 8.0 mg/dl Assessment & Plan SEPSIS Met criteria for sepsis per 2001 definition and current CMS guidelines- leukocytosis, tachycardia, tachypnea. Likely source = infected sacral decubitus ulcer. Wound cultures obtained. Received broad spectrum antibiotic coverage with piperacillin / tazobactam + vancomycin. Serum lactate 2.22, repeat 1.6. BP's > 90 systolic. Further management as discussed below. DECUBITUS ULCERS Decubitus ulcers of sacrum and bilateral heels. Sacral ulcer is unstageable, but appears to be deep. Initially received IV vancomycin and piperacillin / tazobactam. ID consulted and Wound Care consulted. Nasal MRSA screen negative. Stopped vancomycin. Wound culture growing Proteus mirabilis and E coli. Transitioned from IV piperacillin / tazobactam to ampicillin / sulbactam. Reposition q 2 hrs. Specialty bed per Wound Care Nursing. ID consulted. Wound Care consulted; sacral wound debrided. Continue local care, enzymatic debridement, IV ampicillin / sulbactam. 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 Monitor for delirium. BPH Continue tamsulosin. 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 Will probably need ongoing indwelling Disla catheter until wound heals. VTE PROPHYLAXIS / RECENT DVT Recent DVT & PE treated with rivaroxaban. Rivaroxaban order continued at time of admission, but not taking PO meds consistently. Transitioned to SQ enoxaparin. DISPOSITION To be determined. Will most likely require long-term retirement care. . Current Inpatient Medications: Current Inpatient Medications Medications (Trade) Dose Ordered Sig/Amos Route Start Time Stop Time Status Last Admin Dose Admin Polyethylene (Miralax Powder Packet) 17 gm DAILY PRN PO 11/11/17 22:30 12/11/17 22:29 Ondansetron HCl (Zofran Inj) 4 mg Q6H PRN IV 11/11/17 21:15 12/11/17 21:14 Acetaminophen (Tylenol Supp) 650 mg Q4H PRN [place] 11/11/17 22:00 12/11/17 21:59 Morphine Sulfate (MoRPHine SULFATE INJ) 1 mg Q4H PRN IV 11/11/17 22:00 11/25/17 21:59 11/16/17 19:41 1 MG Olanzapine (Zyprexa Tab) 2.5 mg HS PO 11/12/17 21:00 12/12/17 20:59 Tamsulosin HCl (Flomax Cap) 0.4 mg HS PO 11/12/17 21:00 12/12/17 20:59 11/15/17 21:14 0.4 MG Trazodone HCl (Desyrel Tab) 50 mg HS PRN PO 11/11/17 22:00 12/11/17 21:59 Lorazepam (Ativan Tab) 1 mg Q6H PRN SL 11/11/17 22:30 12/11/17 22:29 Enoxaparin Sodium (Lovenox Inj) 80 mg Q12H SQ 11/14/17 08:00 12/14/17 07:59 11/16/17 19:43 80 MG Potassium Chloride/Dextrose/ Sod Cl 1,000 ml @ 125 mls/hr Q8H IV 11/14/17 10:30 12/14/17 10:29 11/16/17 19:03 125 MLS/HR Ampicillin Sodium/ Sulbactam Sodium 3000 mg/Sodium Chloride 108 ml @ 200 mls/hr Q6H IV 11/14/17 12:00 12/14/17 11:59 11/16/17 19:40 200 MLS/HR Ampicillin Sodium/ Sulbactam Sodium (Consult) 1 ea UD PRN N/A 11/14/17 09:00 12/14/17 08:59 Collagenase (Santyl Oint) 1 appln DAILY EXT 11/14/17 13:00 12/14/17 12:59 11/16/17 14:36 1 APPLN
[2017-11-16 23:48] VITALS: BP 115/73; PULSE 99; TEMP 36.7; O2SAT 95
[2017-11-17] MEDS: AMPICILLIN/SULBACTAM SOD INJ 3,000 MG in SODIUM CHLORIDE 0.9% 100ML 100 ML IV SCH ×4 (00:44→18:00)
[2017-11-17] MEDS: D5W AND 1/2NSS + 40MEQ KCL 1,000 ML IV SCH ×2 (04:13→17:59)
[2017-11-17] MEDS: MoRPHine SULFATE 2 MG/ML CARP IV PRN (06:17)
[2017-11-17 08:01] VITALS: BP 117/66; PULSE 72; TEMP 36.6; O2SAT 92
[2017-11-17 08:29] LABS: HEMATOCRIT 30.3 % (42-52); HEMOGLOBIN 9.8 g/dL (14.0-18.0); MEAN CELL VOLUME 91.3 fL (80-100); MEAN CORPUSCULAR HEMOGLOBIN 29.5 pg (25-34); MEAN CORPUSCULAR HGB CONC 32.3 g/dl (32-36); MEAN PLATELET VOLUME 9.9 fL (7.4-10.4); PLATELET COUNT 337 K/uL (130-400); RED CELL DISTRIBUTION WIDTH SD 49.2 fL (36.4-46.3); WHITE BLOOD COUNT 10.52 K/uL (4.8-10.8)
[2017-11-17] MEDS: COLLAGENASE OINT 30 GM TUBE EXT SCH (08:29)
[2017-11-17] MEDS: ENOXAPARIN 80 MG/0.8 ML SYR SQ SCH ×2 (08:30→20:51)
[2017-11-17 09:01] LABS: CALCIUM 8.2 mg/dl (8.5-10.1); CREATININE 0.55 mg/dl (0.60-1.40); POTASSIUM 4.5 mmol/L (3.5-5.1)
--- NOTE | 2017-11-17 13:17 | Pharmacy Progress Note ---
Enoxaparin Dosing Consult Date of Service: Nov 17, 2017. Pharmacy Dosing Scope Pharmacy is consulted to review the use of enoxaparin in a special risk patient population possibly prone to accumulate drug: elderly & to continue in the setting of ordered THERAPEUTIC enoxaparin sub-q dosing therapy, order appropriate labs and adjust drug/dose/frequency. Subjective The patient is a 82 year old male admitted on Nov 11, 2017 at 21:18 for Infected Decubitus Ulcer. Patient is currently on day # 4 of THERAPEUTIC enoxaparin sub-q for active DVT. Pertinent PMH:severe dementia and BPH Objective Height (Feet): 5 Height (Inches): 0.00 Weight (Kilograms): 73.600 Laboratory Results: Last 24 Hours Test 11/17/17 08:03 Blood Urea Nitrogen 5 mg/dl (7-18) Creatinine 0.55 mg/dl (0.60-1.40) Hematocrit 30.3 % (42-52) Hemoglobin 9.8 g/dL (14.0-18.0) Platelet Count 337 K/uL (130-400) Last 72 Hours Test 11/15/17 07:41 11/16/17 08:42 11/17/17 08:03 Platelet Count 326 K/uL 355 K/uL 337 K/uL Assessment & Plan Regarding THERAPEUTIC Enoxaparin: Change to/or continue enoxaparin 80 mg sub-q every 12 hours based on review of the following special population risk factors for drug accumulation: elderly Labs: * Will order Peak Anti-factor Xa level to be drawn 4 hours after 9th dose to better assess drug elimination & review potential for drug accumulation. Goal Peak Anti-factor Xa level = 0.5-1.0 IU/mL for active DVT. * Ongoing Labs (P&T Approved): CBC q 2 days x 2 weeks, serum creat q 2 days We will continue to monitor this patient and make adjustments as needed. Thank you.
[2017-11-17 15:25] VITALS: BP 95/53; PULSE 82; TEMP 37.5; O2SAT 95
[2017-11-17] MEDS: BOOST PLUS VANILLA PO SCH (18:00)
--- NOTE | 2017-11-17 19:57 | Progress Note ---
Medicine Progress Note Date & Time of Visit: Nov 17, 2017 at 11:50 . Subjective CC: Follow-up visit for sepsis, decubitus ulcers, and other problems. HPI: Somnolent most of the time. Afebrile. Requires assistance with eating / drinking. PO intake poor. Nursing reports soft stool, but no diarrhea. Still has Disla cath because of sacral decubitus ulcer. ROS: Patient unable to provide responses. . Objective Last 8 Hrs Date Time Temp Pulse Resp B/P (MAP) Pulse Ox O2 Delivery O2 Flow Rate FiO2 11/17/17 16:45 Room Air 11/17/17 15:25 37.5 82 18 95/53 (67) 95 Room Air Physical Exam: General- chronically ill-appearing, no acute distress Lungs- clear; no respiratory distress Cardiovascular- RRR, no gallop appreciated; no JVD; no pretibial edema Abdomen- + BS, soft, nontender Extremities- no cyanosis; no calf tenderness Neuro- somnolent Skin- warm & dry; decubitus ulcers as documented by undersigned on 11/12 and by Wound Care Nursing . Laboratory Results: Last 24 Hours Test 11/17/17 08:03 White Blood Count 10.52 K/uL Red Blood Count 3.32 M/uL Hemoglobin 9.8 g/dL Hematocrit 30.3 % Mean Corpuscular Volume 91.3 fL Mean Corpuscular Hemoglobin 29.5 pg Mean Corpuscular Hemoglobin Concent 32.3 g/dl RDW Standard Deviation 49.2 fL RDW Coefficient of Variation 15.0 % Platelet Count 337 K/uL Mean Platelet Volume 9.9 fL Sodium Level 141 mmol/L Potassium Level 4.5 mmol/L Chloride Level 110 mmol/L Carbon Dioxide Level 23 mmol/L Anion Gap 8.0 mmol/L Blood Urea Nitrogen 5 mg/dl Creatinine 0.55 mg/dl Est Creatinine Clear Calc Drug Dose 85.6 ml/min Estimated GFR () 111.7 Estimated GFR (Non- 96.4 BUN/Creatinine Ratio 9.6 Random Glucose 102 mg/dl Calcium Level 8.2 mg/dl Assessment & Plan SEPSIS Met criteria for sepsis per 2001 definition and current CMS guidelines- leukocytosis, tachycardia, tachypnea. Likely source = infected sacral decubitus ulcer. Wound cultures obtained. Received broad spectrum antibiotic coverage with piperacillin / tazobactam + vancomycin. Serum lactate 2.22, repeat 1.6. BP's > 90 systolic. Further management as discussed below. DECUBITUS ULCERS Decubitus ulcers of sacrum and bilateral heels. Sacral ulcer is unstageable, but appears to be deep. Initially received IV vancomycin and piperacillin / tazobactam. ID consulted and Wound Care consulted. Nasal MRSA screen negative. Stopped vancomycin. Wound culture growing Proteus mirabilis and E coli. Transitioned from IV piperacillin / tazobactam to ampicillin / sulbactam. Reposition q 2 hrs. Specialty bed per Wound Care Nursing. ID consulted. Wound Care consulted; sacral wound debrided. Continue local care, enzymatic debridement, IV ampicillin / sulbactam. 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 Monitor for delirium. BPH Has Disla cath due to sacral decubitus ulcer. Stop tamsulosin; resume if Disla removed. 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 Will probably need ongoing indwelling Disla catheter until wound heals. VTE PROPHYLAXIS / RECENT DVT Recent DVT & PE treated with rivaroxaban. Rivaroxaban order continued at time of admission, but not taking PO meds consistently. Transitioned to SQ enoxaparin; Pharmacy consulted for dosing. DISPOSITION To be determined. Will most likely require long-term half-way care. . Current Inpatient Medications: Current Inpatient Medications Medications (Trade) Dose Ordered Sig/Amos Route Start Time Stop Time Status Last Admin Dose Admin Polyethylene (Miralax Powder Packet) 17 gm DAILY PRN PO 11/11/17 22:30 12/11/17 22:29 Ondansetron HCl (Zofran Inj) 4 mg Q6H PRN IV 11/11/17 21:15 12/11/17 21:14 Acetaminophen (Tylenol Supp) 650 mg Q4H PRN [place] 11/11/17 22:00 12/11/17 21:59 Morphine Sulfate (MoRPHine SULFATE INJ) 1 mg Q4H PRN IV 11/11/17 22:00 11/25/17 21:59 11/17/17 06:17 1 MG Olanzapine (Zyprexa Tab) 2.5 mg HS PO 11/12/17 21:00 12/12/17 20:59 Tamsulosin HCl (Flomax Cap) 0.4 mg HS PO 11/12/17 21:00 12/12/17 20:59 11/15/17 21:14 0.4 MG Trazodone HCl (Desyrel Tab) 50 mg HS PRN PO 11/11/17 22:00 12/11/17 21:59 Lorazepam (Ativan Tab) 1 mg Q6H PRN SL 11/11/17 22:30 12/11/17 22:29 Enoxaparin Sodium (Lovenox Inj) 80 mg Q12H SQ 11/14/17 08:00 12/14/17 07:59 11/17/17 08:30 80 MG Potassium Chloride/Dextrose/ Sod Cl 1,000 ml @ 75 mls/hr [id number] IV 11/14/17 10:30 12/14/17 10:29 11/17/17 17:59 75 MLS/HR Ampicillin Sodium/ Sulbactam Sodium 3000 mg/Sodium Chloride 108 ml @ 200 mls/hr Q6H IV 11/14/17 12:00 12/14/17 11:59 11/17/17 18:00 200 MLS/HR Ampicillin Sodium/ Sulbactam Sodium (Consult) 1 ea UD PRN N/A 11/14/17 09:00 12/14/17 08:59 Collagenase (Santyl Oint) 1 appln DAILY EXT 11/14/17 13:00 12/14/17 12:59 11/17/17 08:29 1 APPLN Enoxaparin Sodium (Consult) 1 ea UD PRN N/A 11/17/17 13:15 12/17/17 13:14 Enteral Nutritional Formula (Boost Plus Vanilla) 1 can BIDM PO 11/17/17 17:00 12/17/17 16:59
[2017-11-17] MEDS: TAMSULOSIN HCL 0.4 MG CAP PO SCH (20:53)
[2017-11-17] MEDS: OLANZAPINE 2.5 MG TAB PO SCH (20:53)
[2017-11-18] MEDS: AMPICILLIN/SULBACTAM SOD INJ 3,000 MG in SODIUM CHLORIDE 0.9% 100ML 100 ML IV SCH ×5 (00:11→23:40)
[2017-11-18 00:42] VITALS: BP 129/68; PULSE 84; TEMP 36.9; O2SAT 95
[2017-11-18] MEDS: D5W AND 1/2NSS + 40MEQ KCL 1,000 ML IV SCH (02:13)
[2017-11-18 08:00] VITALS: O2SAT 95
[2017-11-18] MEDS: BOOST PLUS VANILLA PO SCH ×2 (08:00→17:19)
[2017-11-18 08:06] VITALS: BP 118/80; PULSE 81; TEMP 36.7; O2SAT 93
[2017-11-18] MEDS: COLLAGENASE OINT 30 GM TUBE EXT SCH (08:39)
[2017-11-18] MEDS: ENOXAPARIN 80 MG/0.8 ML SYR SQ SCH ×2 (08:41→22:32)
[2017-11-18 13:23] LABS: CALCIUM 8.5 mg/dl (8.5-10.1); CREATININE 0.77 mg/dl (0.60-1.40); POTASSIUM 5.1 mmol/L (3.5-5.1)
[2017-11-18] MEDS: D5W AND 1/2NSS 1,000 ML IV SCH (14:17)
[2017-11-18 14:26] VITALS: BP 108/65; PULSE 84; TEMP 36.7; O2SAT 99
--- NOTE | 2017-11-18 14:42 | Pharmacy Progress Note ---
Enoxaparin Dosing Consult Date of Service: Nov 18, 2017. Pharmacy Dosing Scope Pharmacy is consulted to review the use of enoxaparin in a special risk patient population possibly prone to accumulate drug: elderly & to continue in the setting of ordered THERAPEUTIC enoxaparin sub-q dosing therapy, order appropriate labs and adjust drug/dose/frequency. Subjective The patient is a 82 year old male admitted on Nov 11, 2017 at 21:18 for Infected Decubitus Ulcer. Patient is currently on day # 5 of THERAPEUTIC enoxaparin sub-q for active DVT. Pertinent PMH:severe dementia and BPH Objective Height (Feet): 5 Height (Inches): 0.00 Weight (Kilograms): 73.600 Laboratory Results: Last 24 Hours Test 11/18/17 12:49 Blood Urea Nitrogen 6 mg/dl (7-18) Creatinine 0.77 mg/dl (0.60-1.40) Last 72 Hours Test 11/16/17 08:42 11/17/17 08:03 11/18/17 12:49 Platelet Count 355 K/uL 337 K/uL Heparin Anti-Xa Act, Low Molec Wt 0.80 IU/ML Assessment & Plan Regarding THERAPEUTIC Enoxaparin Item Value Date Time Heparin Anti-Xa Act, Low Molec Wt 0.80 IU/ML 11/18/17 1249 Continue enoxaparin 80 mg sub-q every 12 hours based on review of the following special population risk factors for drug accumulation: elderly Labs: * Peak Anti-factor Xa level of 0.8 IU/ml is within therapeutic range. * Goal Peak Anti-factor Xa level = 0.5-1.0 IU/mL for active DVT. * Ongoing Labs (P&T Approved): CBC q 2 days x 2 weeks, serum creat q 2 days We will continue to monitor this patient and make adjustments as needed. Thank you.
[2017-11-18] MEDS: MoRPHine SULFATE 2 MG/ML CARP IV PRN (17:19)
--- NOTE | 2017-11-18 21:07 | Progress Note ---
Medicine Progress Note Date & Time of Visit: Nov 18, 2017 at 21:07. Subjective CC: Follow-up visit for sepsis, decubitus ulcers, and other problems. HPI: Somnolent most of the time. Afebrile. PO intake poor. Nursing reports soft stool this morning, but no diarrhea. Still has Disla cath because of sacral decubitus ulcer. ROS: Patient unable to provide responses. . Objective Last 8 Hrs Date Time Temp Pulse Resp B/P (MAP) Pulse Ox O2 Delivery O2 Flow Rate FiO2 11/18/17 14:26 36.7 84 20 108/65 (79) 99 Physical Exam: General- chronically ill-appearing, no acute distress Lungs- clear; no respiratory distress Cardiovascular- RRR, no gallop; no JVD; no pretibial edema Abdomen- + BS, soft, nontender Extremities- no cyanosis; no calf tenderness Neuro- somnolent; resists examination of pupils Skin- warm & dry; decubitus ulcers as documented by undersigned on 11/12 and by Wound Care Nursing . Laboratory Results: Last 24 Hours Test 11/18/17 12:49 Heparin Anti-Xa Act, Low Molec Wt 0.80 IU/ML Sodium Level 138 mmol/L Potassium Level 5.1 mmol/L Chloride Level 107 mmol/L Carbon Dioxide Level 27 mmol/L Anion Gap 4.0 mmol/L Blood Urea Nitrogen 6 mg/dl Creatinine 0.77 mg/dl Est Creatinine Clear Calc Drug Dose 61.1 ml/min Estimated GFR () 97.3 Estimated GFR (Non- 83.9 BUN/Creatinine Ratio 8.4 Random Glucose 159 mg/dl Calcium Level 8.5 mg/dl Assessment & Plan SEPSIS Met criteria for sepsis per 2001 definition and current CMS guidelines- leukocytosis, tachycardia, tachypnea. Likely source = infected sacral decubitus ulcer. Wound cultures obtained. Received broad spectrum antibiotic coverage with piperacillin / tazobactam + vancomycin. Serum lactate 2.22, repeat 1.6. BP's > 90 systolic. Further management as discussed below. DECUBITUS ULCERS Decubitus ulcers of sacrum and bilateral heels. Sacral ulcer is unstageable, but appears to be deep. Initially received IV vancomycin and piperacillin / tazobactam. ID consulted and Wound Care consulted. Nasal MRSA screen negative. Stopped vancomycin. Wound culture growing Proteus mirabilis and E coli. Transitioned from IV piperacillin / tazobactam to ampicillin / sulbactam. Reposition q 2 hrs. Specialty bed per Wound Care Nursing. ID consulted. Wound Care consulted; sacral wound debrided. Continue local care, enzymatic debridement, IV ampicillin / sulbactam. 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 Monitor for delirium. BPH Has Disla cath due to sacral decubitus ulcer. Stopped tamsulosin; resume if Disla removed. 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 Will probably need ongoing indwelling Disla catheter until wound heals. VTE PROPHYLAXIS / RECENT DVT Recent DVT & PE treated with rivaroxaban. Rivaroxaban order continued at time of admission, but not taking PO meds consistently. Transitioned to SQ enoxaparin; Pharmacy consulted for dosing. DISPOSITION To be determined. Will most likely require long-term intermediate care. . Current Inpatient Medications: Current Inpatient Medications Medications (Trade) Dose Ordered Sig/Amos Route Start Time Stop Time Status Last Admin Dose Admin Polyethylene (Miralax Powder Packet) 17 gm DAILY PRN PO 11/11/17 22:30 12/11/17 22:29 Ondansetron HCl (Zofran Inj) 4 mg Q6H PRN IV 11/11/17 21:15 12/11/17 21:14 Acetaminophen (Tylenol Supp) 650 mg Q4H PRN [place] 11/11/17 22:00 12/11/17 21:59 Morphine Sulfate (MoRPHine SULFATE INJ) 1 mg Q4H PRN IV 11/11/17 22:00 11/25/17 21:59 11/18/17 17:19 1 MG Olanzapine (Zyprexa Tab) 2.5 mg HS PO 11/12/17 21:00 12/12/17 20:59 11/17/17 20:53 2.5 MG Tamsulosin HCl (Flomax Cap) 0.4 mg HS PO 11/12/17 21:00 12/12/17 20:59 11/17/17 20:53 0.4 MG Trazodone HCl (Desyrel Tab) 50 mg HS PRN PO 11/11/17 22:00 12/11/17 21:59 Lorazepam (Ativan Tab) 1 mg Q6H PRN [place] 11/11/17 22:30 12/11/17 22:29 Enoxaparin Sodium (Lovenox Inj) 80 mg Q12H SQ 11/14/17 08:00 12/14/17 07:59 11/18/17 08:41 80 MG Ampicillin Sodium/ Sulbactam Sodium 3000 mg/Sodium Chloride 108 ml @ 200 mls/hr Q6H IV 11/14/17 12:00 12/14/17 11:59 11/18/17 17:20 200 MLS/HR Ampicillin Sodium/ Sulbactam Sodium (Consult) 1 ea UD PRN N/A 11/14/17 09:00 12/14/17 08:59 Collagenase (Santyl Oint) 1 appln DAILY EXT 11/14/17 13:00 12/14/17 12:59 11/18/17 08:39 1 APPLN Enoxaparin Sodium (Consult) 1 ea UD PRN N/A 11/17/17 13:15 12/17/17 13:14 Enteral Nutritional Formula (Boost Plus Vanilla) 1 can BIDM PO 11/17/17 17:00 12/17/17 16:59 11/18/17 17:19 1 CAN Dextrose/Sodium Chloride 1,000 ml @ 60 mls/hr [id number] IV 11/18/17 14:00 12/18/17 13:59 11/18/17 14:17 60 MLS/HR
[2017-11-18] MEDS: OLANZAPINE 2.5 MG TAB PO SCH (22:00)
[2017-11-18] MEDS: TAMSULOSIN HCL 0.4 MG CAP PO SCH (22:00)
[2017-11-18 23:39] VITALS: BP 130/71; PULSE 90; TEMP 36.9; O2SAT 95
[2017-11-19] MEDS: AMPICILLIN/SULBACTAM SOD INJ 3,000 MG in SODIUM CHLORIDE 0.9% 100ML 100 ML IV SCH ×4 (06:26→23:51)
[2017-11-19 07:17] VITALS: BP 106/53; PULSE 67; TEMP 36.9; O2SAT 94
[2017-11-19] MEDS: COLLAGENASE OINT 30 GM TUBE EXT SCH (07:24)
[2017-11-19] MEDS: ENOXAPARIN 80 MG/0.8 ML SYR SQ SCH ×2 (07:24→19:46)
[2017-11-19] MEDS: BOOST PLUS VANILLA PO SCH ×2 (07:25→17:57)
[2017-11-19 08:24] LABS: CALCIUM 8.4 mg/dl (8.5-10.1); CREATININE 0.67 mg/dl (0.60-1.40); POTASSIUM 4.4 mmol/L (3.5-5.1)
[2017-11-19] MEDS: D5W AND 1/2NSS 1,000 ML IV SCH (09:57)
[2017-11-19 15:07] VITALS: BP 113/71; PULSE 82; TEMP 36.8; O2SAT 97
--- NOTE | 2017-11-19 18:35 | Progress Note ---
Medicine Progress Note Date & Time of Visit: Nov 19, 2017 at 10:20 . Subjective CC: Follow-up visit for decubitus ulcers, and other problems. HPI: Remains somnolent most of the time. Afebrile. PO intake varies. No diarrhea. Still has Disla cath because of sacral decubitus ulcer. ROS: Patient unable to provide responses. . Objective Last 8 Hrs Date Time Temp Pulse Resp B/P (MAP) Pulse Ox O2 Delivery O2 Flow Rate FiO2 11/19/17 16:00 Room Air 11/19/17 15:07 36.8 82 20 113/71 (85 97 Physical Exam: General- chronically ill-appearing, no acute distress Lungs- clear; no respiratory distress Cardiovascular- RRR, no gallop; no JVD; no pretibial edema Abdomen- + BS, soft, nontender Extremities- no cyanosis; no calf tenderness Neuro- somnolent; resists examination of pupils Skin- warm & dry; decubitus ulcers as documented by undersigned on 11/12 and by Wound Care Nursing . Laboratory Results: Last 24 Hours Test 11/19/17 07:45 Sodium Level 141 mmol/L Potassium Level 4.4 mmol/L Chloride Level 108 mmol/L Carbon Dioxide Level 24 mmol/L Anion Gap 9.0 mmol/L Blood Urea Nitrogen 6 mg/dl Creatinine 0.67 mg/dl Est Creatinine Clear Calc Drug Dose 70.2 ml/min Estimated GFR () 103.0 Estimated GFR (Non- 88.9 BUN/Creatinine Ratio 8.6 Random Glucose 101 mg/dl Calcium Level 8.4 mg/dl Assessment & Plan SEPSIS Met criteria for sepsis per 2001 definition and current CMS guidelines- leukocytosis, tachycardia, tachypnea. Likely source = infected sacral decubitus ulcer. Wound cultures obtained. Received broad spectrum antibiotic coverage with piperacillin / tazobactam + vancomycin. Serum lactate 2.22, repeat 1.6. BP's > 90 systolic. Further management as discussed below. DECUBITUS ULCERS Decubitus ulcers of sacrum and bilateral heels. Sacral ulcer is unstageable, but appears to be deep. Initially received IV vancomycin and piperacillin / tazobactam. ID consulted and Wound Care consulted. Nasal MRSA screen negative. Stopped vancomycin. Wound culture growing Proteus mirabilis and E coli. Transitioned from IV piperacillin / tazobactam to ampicillin / sulbactam. Reposition q 2 hrs. Specialty bed per Wound Care Nursing. ID consulted. Wound Care consulted; sacral wound debrided. Continue local care, enzymatic debridement, IV ampicillin / sulbactam. 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 Monitor for delirium. BPH Has Disla cath due to sacral decubitus ulcer. Stopped tamsulosin; resume if Disla removed. NUTRITION Being followed by Nutrition Service. Receiving supplements. 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 Will probably need ongoing indwelling Disla catheter until wound heals. VTE PROPHYLAXIS / RECENT DVT Recent DVT & PE treated with rivaroxaban. Rivaroxaban order continued at time of admission, but not taking PO meds consistently. Transitioned to SQ enoxaparin; Pharmacy consulted for dosing. DISPOSITION To be determined. Will most likely require long-term [facility] care. . Current Inpatient Medications: Current Inpatient Medications Medications (Trade) Dose Ordered Sig/Amos Route Start Time Stop Time Status Last Admin Dose Admin Polyethylene (Miralax Powder Packet) 17 gm DAILY PRN PO 11/11/17 22:30 12/11/17 22:29 Ondansetron HCl (Zofran Inj) 4 mg Q6H PRN IV 11/11/17 21:15 12/11/17 21:14 Acetaminophen (Tylenol Supp) 650 mg Q4H PRN [place] 11/11/17 22:00 12/11/17 21:59 Morphine Sulfate (MoRPHine SULFATE INJ) 1 mg Q4H PRN IV 11/11/17 22:00 11/25/17 21:59 11/18/17 17:19 1 MG Olanzapine (Zyprexa Tab) 2.5 mg HS PO 11/12/17 21:00 12/12/17 20:59 11/17/17 20:53 2.5 MG Tamsulosin HCl (Flomax Cap) 0.4 mg HS PO 11/12/17 21:00 12/12/17 20:59 11/17/17 20:53 0.4 MG Trazodone HCl (Desyrel Tab) 50 mg HS PRN PO 11/11/17 22:00 12/11/17 21:59 Lorazepam (Ativan Tab) 1 mg Q6H PRN SL 11/11/17 22:30 12/11/17 22:29 Enoxaparin Sodium (Lovenox Inj) 80 mg Q12H SQ 11/14/17 08:00 12/14/17 07:59 11/19/17 07:24 80 MG Ampicillin Sodium/ Sulbactam Sodium 3000 mg/Sodium Chloride 108 ml @ 200 mls/hr Q6H IV 11/14/17 12:00 12/14/17 11:59 11/19/17 17:57 200 MLS/HR Ampicillin Sodium/ Sulbactam Sodium (Consult) 1 ea UD PRN N/A 11/14/17 09:00 12/14/17 08:59 Collagenase (Santyl Oint) 1 appln DAILY EXT 11/14/17 13:00 12/14/17 12:59 11/19/17 07:24 1 APPLN Enoxaparin Sodium (Consult) 1 ea UD PRN N/A 11/17/17 13:15 12/17/17 13:14 Enteral Nutritional Formula (Boost Plus Vanilla) 1 can BIDM PO 11/17/17 17:00 12/17/17 16:59 11/19/17 17:57 1 CAN Dextrose/Sodium Chloride 1,000 ml @ 60 mls/hr [id number] IV 11/18/17 14:00 12/18/17 13:59 11/19/17 09:57 60 MLS/HR
[2017-11-19] MEDS: OLANZAPINE 2.5 MG TAB PO SCH (21:45)
[2017-11-19] MEDS: TAMSULOSIN HCL 0.4 MG CAP PO SCH (21:45)
[2017-11-19 23:45] VITALS: BP 127/71; PULSE 80; TEMP 36.4; O2SAT 92
[2017-11-20] MEDS: AMPICILLIN/SULBACTAM SOD INJ 3,000 MG in SODIUM CHLORIDE 0.9% 100ML 100 ML IV SCH ×4 (06:02→23:53)
[2017-11-20 06:33] LABS: HEMATOCRIT 33.8 % (42-52); HEMOGLOBIN 10.7 g/dL (14.0-18.0); MEAN CELL VOLUME 92.6 fL (80-100); MEAN CORPUSCULAR HEMOGLOBIN 29.3 pg (25-34); MEAN CORPUSCULAR HGB CONC 31.7 g/dl (32-36); MEAN PLATELET VOLUME 10.4 fL (7.4-10.4); PLATELET COUNT 347 K/uL (130-400); RED CELL DISTRIBUTION WIDTH CV 15.2 % (11.5-14.5); RED CELL DISTRIBUTION WIDTH SD 51.4 fL (36.4-46.3); WHITE BLOOD COUNT 8.72 K/uL (4.8-10.8)
[2017-11-20 06:58] LABS: CREATININE 0.7 mg/dl (0.60-1.40)
[2017-11-20 07:12] VITALS: BP 125/81; PULSE 73; TEMP 36.8; O2SAT 100
[2017-11-20] MEDS: COLLAGENASE OINT 30 GM TUBE EXT SCH (07:13)
[2017-11-20] MEDS: ENOXAPARIN 80 MG/0.8 ML SYR SQ SCH ×2 (07:14→20:08)
[2017-11-20] MEDS: BOOST PLUS VANILLA PO SCH ×2 (07:14→16:57)
[2017-11-20 09:03] LABS: POTASSIUM 4.3 mmol/L (3.5-5.1)
[2017-11-20 15:32] VITALS: BP 124/71; PULSE 78; TEMP 37.1; O2SAT 100
--- NOTE | 2017-11-20 21:02 | Progress Note ---
Medicine Progress Note Date & Time of Visit: Nov 20, 2017 at 10:00 . Subjective CC: Follow-up visit for decubitus ulcers, and other problems. HPI: Remains somnolent most of the time. Afebrile. Nursing reports fair PO intake with assistance. No diarrhea. Still has Disla cath because of sacral decubitus ulcer. ROS: Patient unable to provide responses. . Objective Last 8 Hrs Date Time Temp Pulse Resp B/P (MAP) Pulse Ox O2 Delivery O2 Flow Rate FiO2 11/20/17 20:00 Room Air 11/20/17 16:00 Room Air 11/20/17 15:32 37.1 78 20 124/71 (88) 100 Physical Exam: General- chronically ill-appearing, no acute distress Lungs- clear; no respiratory distress Cardiovascular- RRR, no gallop; no JVD; no pretibial edema Abdomen- + BS, soft, nontender Extremities- no cyanosis; no calf tenderness; waffle boots applied Neuro- somnolent; does not follow commands Skin- warm & dry; decubitus ulcers as documented by undersigned on 11/12 and by Wound Care Nursing . Laboratory Results: Last 24 Hours Test 11/20/17 06:00 11/20/17 08:38 White Blood Count 8.72 K/uL Red Blood Count 3.65 M/uL Hemoglobin 10.7 g/dL Hematocrit 33.8 % Mean Corpuscular Volume 92.6 fL Mean Corpuscular Hemoglobin 29.3 pg Mean Corpuscular Hemoglobin Concent 31.7 g/dl RDW Standard Deviation 51.4 fL RDW Coefficient of Variation 15.2 % Platelet Count 347 K/uL Mean Platelet Volume 10.4 fL Creatinine 0.70 mg/dl Est Creatinine Clear Calc Drug Dose 67.2 ml/min Estimated GFR () 101.2 Estimated GFR (Non- 87.3 Sodium Level 139 mmol/L Potassium Level 4.3 mmol/L Chloride Level 109 mmol/L Carbon Dioxide Level 23 mmol/L Anion Gap 8.0 mmol/L Assessment & Plan SEPSIS Met criteria for sepsis at time of admission per 2001 definition and current CMS guidelines- leukocytosis, tachycardia, tachypnea. Likely source = infected sacral decubitus ulcer. Wound cultures obtained. Received broad spectrum antibiotic coverage with piperacillin / tazobactam + vancomycin. Serum lactate 2.22, repeat 1.6. BP's > 90 systolic. Further management as discussed below. DECUBITUS ULCERS Decubitus ulcers of sacrum and bilateral heels. Sacral ulcer is unstageable, but appears to be deep. Initially received IV vancomycin and piperacillin / tazobactam. ID consulted and Wound Care consulted. Nasal MRSA screen negative. Stopped vancomycin. Wound culture growing Proteus mirabilis and E coli. Transitioned from IV piperacillin / tazobactam to ampicillin / sulbactam. Reposition q 2 hrs. Specialty bed per Wound Care Nursing. ID consulted. Wound Care consulted; sacral wound debrided. Continue local care, enzymatic debridement, IV ampicillin / sulbactam. 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 Monitor for delirium. BPH Has Disla cath due to sacral decubitus ulcer. Stopped tamsulosin; resume if Disla removed. NUTRITION Being followed by Nutrition Service. Receiving supplements. 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 Will probably need ongoing indwelling Disla catheter until wound heals. VTE PROPHYLAXIS / RECENT DVT Recent DVT & PE treated with rivaroxaban. Rivaroxaban order continued at time of admission, but not taking PO meds consistently. Transitioned to SQ enoxaparin; Pharmacy consulted for dosing. DISPOSITION [facility] ADDENDUM: Attempted to reach by phone to offer update- no answer, messages left. . Current Inpatient Medications: Current Inpatient Medications Medications (Trade) Dose Ordered Sig/Amos Route Start Time Stop Time Status Last Admin Dose Admin Polyethylene (Miralax Powder Packet) 17 gm DAILY PRN PO 11/11/17 22:30 12/11/17 22:29 Ondansetron HCl (Zofran Inj) 4 mg Q6H PRN IV 11/11/17 21:15 12/11/17 21:14 Acetaminophen (Tylenol Supp) 650 mg Q4H PRN [place] 11/11/17 22:00 12/11/17 21:59 Morphine Sulfate (MoRPHine SULFATE INJ) 1 mg Q4H PRN IV 11/11/17 22:00 11/25/17 21:59 11/18/17 17:19 1 MG Olanzapine (Zyprexa Tab) 2.5 mg HS PO 11/12/17 21:00 12/12/17 20:59 11/17/17 20:53 2.5 MG Tamsulosin HCl (Flomax Cap) 0.4 mg HS PO 11/12/17 21:00 12/12/17 20:59 11/17/17 20:53 0.4 MG Trazodone HCl (Desyrel Tab) 50 mg HS PRN PO 11/11/17 22:00 12/11/17 21:59 Lorazepam (Ativan Tab) 1 mg Q6H PRN SL 11/11/17 22:30 12/11/17 22:29 Enoxaparin Sodium (Lovenox Inj) 80 mg Q12H SQ 11/14/17 08:00 12/14/17 07:59 11/20/17 20:08 80 MG Ampicillin Sodium/ Sulbactam Sodium 3000 mg/Sodium Chloride 108 ml @ 200 mls/hr Q6H IV 11/14/17 12:00 12/14/17 11:59 11/20/17 17:34 200 MLS/HR Ampicillin Sodium/ Sulbactam Sodium (Consult) 1 ea UD PRN N/A 11/14/17 09:00 12/14/17 08:59 Collagenase (Santyl Oint) 1 appln DAILY EXT 11/14/17 13:00 12/14/17 12:59 11/20/17 07:13 1 APPLN Enoxaparin Sodium (Consult) 1 ea UD PRN N/A 11/17/17 13:15 12/17/17 13:14 Enteral Nutritional Formula (Boost Plus Vanilla) 1 can BIDM PO 11/17/17 17:00 12/17/17 16:59 11/20/17 16:57 1 CAN
[2017-11-20] MEDS: TAMSULOSIN HCL 0.4 MG CAP PO SCH (21:27)
[2017-11-20] MEDS: OLANZAPINE 2.5 MG TAB PO SCH (21:27)
[2017-11-20 23:36] VITALS: BP 119/75; PULSE 78; TEMP 36.6; O2SAT 94
[2017-11-21] MEDS: AMPICILLIN/SULBACTAM SOD INJ 3,000 MG in SODIUM CHLORIDE 0.9% 100ML 100 ML IV SCH ×4 (05:51→23:39)
[2017-11-21 07:01] VITALS: BP 119/64; PULSE 60; TEMP 37; O2SAT 96
[2017-11-21] MEDS: ENOXAPARIN 80 MG/0.8 ML SYR SQ SCH ×2 (08:00→17:17)
[2017-11-21] MEDS: COLLAGENASE OINT 30 GM TUBE EXT SCH (09:11)
[2017-11-21] MEDS: BOOST PLUS VANILLA PO SCH ×2 (09:12→15:28)
[2017-11-21] MEDS: OLANZAPINE 2.5 MG TAB PO SCH (15:49)
[2017-11-21] MEDS: TAMSULOSIN HCL 0.4 MG CAP PO SCH (15:49)
[2017-11-21 16:19] VITALS: BP 122/66; PULSE 52; TEMP 37.1; O2SAT 94
--- NOTE | 2017-11-21 19:41 | Progress Note ---
Medicine Progress Note Date & Time of Visit: Nov 21, 2017 at 09:40 . Subjective CC: Follow-up visit for decubitus ulcers, and other problems. HPI: Minimally interactive. Afebrile. Fair PO intake with assistance. No vomiting or diarrhea. Still has Disla cath because of sacral decubitus ulcer. ROS: Patient unable to provide responses. . Objective Last 8 Hrs Date Time Temp Pulse Resp B/P (MAP) Pulse Ox O2 Delivery O2 Flow Rate FiO2 11/21/17 16:19 37.1 52 20 122/66 (84) 94 Room Air 11/21/17 16:00 Room Air Physical Exam: General- chronically ill-appearing, no acute distress Lungs- clear; no respiratory distress Cardiovascular- RRR, no gallop; no JVD; no pretibial edema Abdomen- + BS, soft, nontender Extremities- no cyanosis; no calf tenderness Neuro- somnolent Skin- warm & dry; decubitus ulcers as documented by undersigned on 11/12 and by Wound Care Nursing . Assessment & Plan SEPSIS Met criteria for sepsis at time of admission per 2001 definition and current CMS guidelines- leukocytosis, tachycardia, tachypnea. Likely source = infected sacral decubitus ulcer. Wound cultures obtained. Received broad spectrum antibiotic coverage with piperacillin / tazobactam + vancomycin. Serum lactate 2.22, repeat 1.6. BP's > 90 systolic. Further management of skin ulcers as discussed below. DECUBITUS ULCERS Decubitus ulcers of sacrum and bilateral heels. Sacral ulcer unstageable at time of admission, but appears to be deep. Initially received IV vancomycin and piperacillin / tazobactam. ID consulted and Wound Care consulted. Nasal MRSA screen negative. Stopped vancomycin. Wound culture growing Proteus mirabilis and E coli. Transitioned from IV piperacillin / tazobactam to ampicillin / sulbactam. Reposition q 2 hrs. Specialty bed per Wound Care Nursing. ID consulted. Wound Care consulted; sacral wound debrided. Continue local care, enzymatic debridement, IV ampicillin / sulbactam. 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 Monitor for delirium. BPH Has Disla cath due to sacral decubitus ulcer. Stopped tamsulosin; resume if Disla removed. NUTRITION Being followed by Nutrition Service. Receiving supplements. 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 Will probably need ongoing indwelling Disla catheter until wound heals. VTE PROPHYLAXIS / RECENT DVT Recent DVT & PE treated with rivaroxaban. Rivaroxaban order continued at time of admission, but not taking PO meds consistently. Transitioned to SQ enoxaparin; Pharmacy consulted for dosing. DISPOSITION Will require long-term [facility] care. ADDENDUM: visiting today and given update. . Current Inpatient Medications: Current Inpatient Medications Medications (Trade) Dose Ordered Sig/Amos Route Start Time Stop Time Status Last Admin Dose Admin Polyethylene (Miralax Powder Packet) 17 gm DAILY PRN PO 11/11/17 22:30 12/11/17 22:29 Ondansetron HCl (Zofran Inj) 4 mg Q6H PRN IV 11/11/17 21:15 12/11/17 21:14 Acetaminophen (Tylenol Supp) 650 mg Q4H PRN [place] 11/11/17 22:00 12/11/17 21:59 Morphine Sulfate (MoRPHine SULFATE INJ) 1 mg Q4H PRN IV 11/11/17 22:00 11/25/17 21:59 11/18/17 17:19 1 MG Olanzapine (Zyprexa Tab) 2.5 mg HS PO 11/12/17 21:00 12/12/17 20:59 11/17/17 20:53 2.5 MG Tamsulosin HCl (Flomax Cap) 0.4 mg HS PO 11/12/17 21:00 12/12/17 20:59 11/17/17 20:53 0.4 MG Trazodone HCl (Desyrel Tab) 50 mg HS PRN PO 11/11/17 22:00 12/11/17 21:59 Lorazepam (Ativan Tab) 1 mg Q6H PRN SL 11/11/17 22:30 12/11/17 22:29 Enoxaparin Sodium (Lovenox Inj) 80 mg Q12H SQ 11/14/17 08:00 12/14/17 07:59 11/21/17 17:17 80 MG Ampicillin Sodium/ Sulbactam Sodium 3000 mg/Sodium Chloride 108 ml @ 200 mls/hr Q6H IV 11/14/17 12:00 12/14/17 11:59 11/21/17 17:17 200 MLS/HR Ampicillin Sodium/ Sulbactam Sodium (Consult) 1 ea UD PRN N/A 11/14/17 09:00 12/14/17 08:59 Collagenase (Santyl Oint) 1 appln DAILY EXT 11/14/17 13:00 12/14/17 12:59 11/21/17 09:11 1 APPLN Enoxaparin Sodium (Consult) 1 ea UD PRN N/A 11/17/17 13:15 12/17/17 13:14 Enteral Nutritional Formula (Boost Plus Vanilla) 1 can BIDM PO 11/17/17 17:00 12/17/17 16:59 11/20/17 16:57 1 CAN
--- NOTE | 2017-11-21 20:52 | Infectious Disease Progress Nt ---
Progress Note Date of Service Nov 21, 2017. Subjective Pt evaluation today including: conversation w/ patient, conversation w/ family , physical exam, chart review, lab review, review of studies, conversation w/ home energy consultant, review of inpatient medication list Patient remains nonverbal. Appears in no acute distress. Remains afebrile. White count normal. Appears to be tolerating antibiotic without apparent difficulty. All Other Systems: Reviewed and Negative Medications Current Inpatient Medications Medications (Trade) Dose Ordered Sig/Amos Route Start Time Stop Time Status Last Admin Dose Admin Polyethylene (Miralax Powder Packet) 17 gm DAILY PRN PO 11/11/17 22:30 12/11/17 22:29 Ondansetron HCl (Zofran Inj) 4 mg Q6H PRN IV 11/11/17 21:15 12/11/17 21:14 Acetaminophen (Tylenol Supp) 650 mg Q4H PRN [place] 11/11/17 22:00 12/11/17 21:59 Morphine Sulfate (MoRPHine SULFATE INJ) 1 mg Q4H PRN IV 11/11/17 22:00 11/25/17 21:59 11/18/17 17:19 1 MG Olanzapine (Zyprexa Tab) 2.5 mg HS PO 11/12/17 21:00 12/12/17 20:59 11/17/17 20:53 2.5 MG Tamsulosin HCl (Flomax Cap) 0.4 mg HS PO 11/12/17 21:00 12/12/17 20:59 11/17/17 20:53 0.4 MG Trazodone HCl (Desyrel Tab) 50 mg HS PRN PO 11/11/17 22:00 12/11/17 21:59 Lorazepam (Ativan Tab) 1 mg Q6H PRN SL 11/11/17 22:30 12/11/17 22:29 Enoxaparin Sodium (Lovenox Inj) 80 mg Q12H SQ 11/14/17 08:00 12/14/17 07:59 11/21/17 17:17 80 MG Ampicillin Sodium/ Sulbactam Sodium 3000 mg/Sodium Chloride 108 ml @ 200 mls/hr Q6H IV 11/14/17 12:00 12/14/17 11:59 11/21/17 17:17 200 MLS/HR Ampicillin Sodium/ Sulbactam Sodium (Consult) 1 ea UD PRN N/A 11/14/17 09:00 12/14/17 08:59 Collagenase (Santyl Oint) 1 appln DAILY EXT 11/14/17 13:00 12/14/17 12:59 11/21/17 09:11 1 APPLN Enoxaparin Sodium (Consult) 1 ea UD PRN N/A 11/17/17 13:15 2 13:14 Enteral Nutritional Formula (Boost Plus Vanilla) 1 can BIDM PO 11/17/17 17:00 12/17/17 16:59 11/20/17 16:57 1 CAN Objective Vital Signs Date Time Temp Pulse Resp B/P (MAP) Pulse Ox O2 Delivery O2 Flow Rate FiO2 11/21/17 16:19 37.1 52 20 122/66 (84) 94 Room Air 11/21/17 16:00 Room Air 11/21/17 08:00 Room Air 11/21/17 07:01 37.0 60 18 119/64 (82) 96 Room Air 11/21/17 00:00 Room Air 11/20/17 23:36 36.6 78 18 119/75 (90) 94 Room Air Physical Exam General Appearance: WD/WN, no apparent distress Eyes: normal inspection, EOMI, sclerae normal ENT: normal ENT inspection, pharynx normal Neck: supple, no adenopathy, trachea midline Respiratory/Chest: chest non-tender, lungs clear, normal breath sounds, no respiratory distress Cardiovascular: regular rate, rhythm, no gallop, no murmur Abdomen: normal bowel sounds, non tender, soft, no organomegaly (Least a) Extremities: non-tender, no calf tenderness Neurologic/Psychiatric: alert ( S), + disoriented Skin: normal color, warm/dry (Is he is saying), no rash, + pertinent finding ( Sacral dressing intact) Lymphatic: no adenopathy Assessment and Plan 82-year-old male, nonverbal, bedridden, with fever and clinical picture of sepsis with leukocytosis and elevated lactic acid, with large buttock ulcer, likely source of sepsis. Given negative MRSA swab and culture results, Unasyn appropriate therapy for now. Given that no osteomyelitis present, could consider changing to oral Augmentin in the next day or so, likely will need prolonged oral antibiotic therapy and continued wound care. Will continue to follow.
[2017-11-22 01:18] VITALS: BP 120/65; PULSE 41; TEMP 36.8; O2SAT 96
[2017-11-22] MEDS: AMPICILLIN/SULBACTAM SOD INJ 3,000 MG in SODIUM CHLORIDE 0.9% 100ML 100 ML IV SCH ×3 (06:02→18:16)
[2017-11-22] MEDS: ENOXAPARIN 80 MG/0.8 ML SYR SQ SCH ×2 (07:31→21:22)
[2017-11-22] MEDS: COLLAGENASE OINT 30 GM TUBE EXT SCH (07:31)
[2017-11-22 07:32] LABS: HEMATOCRIT 30.7 % (42-52); MEAN CELL VOLUME 92.7 fL (80-100); MEAN CORPUSCULAR HEMOGLOBIN 30.2 pg (25-34); MEAN CORPUSCULAR HGB CONC 32.6 g/dl (32-36); MEAN PLATELET VOLUME 10.2 fL (7.4-10.4); PLATELET COUNT 325 K/uL (130-400); RED CELL DISTRIBUTION WIDTH CV 15.7 % (11.5-14.5); RED CELL DISTRIBUTION WIDTH SD 52.8 fL (36.4-46.3); WHITE BLOOD COUNT 6.79 K/uL (4.8-10.8)
[2017-11-22 07:58] VITALS: BP 136/64; PULSE 55; TEMP 36.7; O2SAT 98
[2017-11-22] MEDS: BOOST PLUS VANILLA PO SCH ×2 (08:00→17:00)
[2017-11-22 08:03] LABS: CALCIUM 8.4 mg/dl (8.5-10.1); CREATININE 0.71 mg/dl (0.60-1.40); POTASSIUM 4.1 mmol/L (3.5-5.1)
--- NOTE | 2017-11-22 13:32 | Pharmacy Progress Note ---
Pharmacy Progress Note Date of Service Nov 22, 2017. Progress Note Item Value Date Time Heparin Anti-Xa Act, Low Molec Wt 0.88 IU/ML 11/22/17 1226 Pt's Scr went from ~0.5-->0.71 mg/dL so a repeat Xa was drawn to ensure no accumulation taking place. Repeat Xa within goal range. Continue current Lovenox orders and recheck Xa in 2-4 weeks.
--- NOTE | 2017-11-22 15:16 | Infectious Disease Progress Nt ---
Progress Note Date of Service Nov 22, 2017. Subjective Pt evaluation today including: conversation w/ family, physical exam, chart review, lab review, review of studies, conversation w/ staff consultant, review of inpatient medication list Patient remains nonverbal. No obvious problems overnight. Remains afebrile. Additional Comments: Not obtainable because of patient's mental status Medications Current Inpatient Medications Medications (Trade) Dose Ordered Sig/Amos Route Start Time Stop Time Status Last Admin Dose Admin Polyethylene (Miralax Powder Packet) 17 gm DAILY PRN PO 11/11/17 22:30 12/11/17 22:29 Ondansetron HCl (Zofran Inj) 4 mg Q6H PRN IV 11/11/17 21:15 12/11/17 21:14 Acetaminophen (Tylenol Supp) 650 mg Q4H PRN [place] 11/11/17 22:00 12/11/17 21:59 Morphine Sulfate (MoRPHine SULFATE INJ) 1 mg Q4H PRN IV 11/11/17 22:00 11/25/17 21:59 11/18/17 17:19 1 MG Olanzapine (Zyprexa Tab) 2.5 mg HS PO 11/12/17 21:00 12/12/17 20:59 11/17/17 20:53 2.5 MG Tamsulosin HCl (Flomax Cap) 0.4 mg HS PO 11/12/17 21:00 12/12/17 20:59 11/17/17 20:53 0.4 MG Trazodone HCl (Desyrel Tab) 50 mg HS PRN PO 11/11/17 22:00 12/11/17 21:59 Lorazepam (Ativan Tab) 1 mg Q6H PRN SL 11/11/17 22:30 12/11/17 22:29 Enoxaparin Sodium (Lovenox Inj) 80 mg Q12H SQ 11/14/17 08:00 12/14/17 07:59 11/22/17 07:31 80 MG Ampicillin Sodium/ Sulbactam Sodium 3000 mg/Sodium Chloride 108 ml @ 200 mls/hr Q6H IV 11/14/17 12:00 12/14/17 11:59 11/22/17 12:16 200 MLS/HR Ampicillin Sodium/ Sulbactam Sodium (Consult) 1 ea UD PRN N/A 11/14/17 09:00 12/14/17 08:59 Collagenase (Santyl Oint) 1 appln DAILY EXT 11/14/17 13:00 12/14/17 12:59 11/22/17 07:31 1 APPLN Enoxaparin Sodium (Consult) 1 ea UD PRN N/A 11/17/17 13:15 12/17/17 13:14 Enteral Nutritional Formula (Boost Plus Vanilla) 1 can BIDM PO 11/17/17 17:00 12/17/17 16:59 11/20/17 16:57 1 CAN Objective Vital Signs Date Time Temp Pulse Resp B/P (MAP) Pulse Ox O2 Delivery O2 Flow Rate FiO2 11/22/17 08:00 Room Air 11/22/17 07:58 36.7 55 20 136/64 (88) 98 11/22/17 01:18 36.8 41 18 120/65 (83) 96 Room Air 11/22/17 00:00 Room Air 11/21/17 16:19 37.1 52 20 122/66 (84) 94 Room Air 11/21/17 16:00 Room Air Physical Exam General Appearance: WD/WN, no apparent distress Eyes: normal inspection, sclerae normal ENT: normal ENT inspection, pharynx normal Neck: supple, no adenopathy, trachea midline Respiratory/Chest: chest non-tender, lungs clear, normal breath sounds, no respiratory distress Cardiovascular: regular rate, rhythm, no gallop, no murmur Abdomen: normal bowel sounds, non tender, soft, no organomegaly Extremities: non-tender, no calf tenderness Neurologic/Psychiatric: alert, + disoriented Skin: normal color, no rash, + pertinent finding (Dressing intact heels and sacrum) Lymphatic: no adenopathy Laboratory Results Last 24 Hours Test 11/22/17 07:02 11/22/17 12:26 White Blood Count 6.79 K/uL Red Blood Count 3.31 M/uL Hemoglobin 10.0 g/dL Hematocrit 30.7 % Mean Corpuscular Volume 92.7 fL Mean Corpuscular Hemoglobin 30.2 pg Mean Corpuscular Hemoglobin Concent 32.6 g/dl RDW Standard Deviation 52.8 fL RDW Coefficient of Variation 15.7 % Platelet Count 325 K/uL Mean Platelet Volume 10.2 fL Sodium Level 143 mmol/L Potassium Level 4.1 mmol/L Chloride Level 112 mmol/L Carbon Dioxide Level 26 mmol/L Anion Gap 6.0 mmol/L Blood Urea Nitrogen 13 mg/dl Creatinine 0.71 mg/dl Est Creatinine Clear Calc Drug Dose 66.3 ml/min Estimated GFR () 100.6 Estimated GFR (Non- 86.8 BUN/Creatinine Ratio 18.7 Random Glucose 97 mg/dl Calcium Level 8.4 mg/dl Heparin Anti-Xa Act, Low Molec Wt 0.88 IU/ML Assessment and Plan 82-year-old male, nonverbal, bedridden, with fever and clinical picture of sepsis with leukocytosis and elevated lactic acid, with large buttock ulcer, likely source of sepsis. Given negative MRSA swab and culture results, Unasyn appropriate therapy for now. Given that no osteomyelitis present, could consider changing to oral Augmentin in the next day or so, likely will need prolonged oral antibiotic therapy and continued wound care. Will continue to follow.
[2017-11-22 15:49] VITALS: BP 155/91; PULSE 61; TEMP 36.7; O2SAT 91
--- NOTE | 2017-11-22 17:20 | Progress Note ---
Medicine Progress Note Date & Time of Visit: Nov 22, 2017 at 17:15. Subjective patient seen sleeping, minimal response not in distress per RN patient had breakfast and lunch today no signs of pain no other symptoms/signs noted Objective Last 8 Hrs Date Time Temp Pulse Resp B/P (MAP) Pulse Ox O2 Delivery O2 Flow Rate FiO2 11/22/17 15:49 36.7 61 20 155/91 (112) 91 Room Air Physical Exam: General- sleeping, not in distress Head- atraumatic Eyes- anicteric ENT- oropharynx clear Neck- no JVD Lungs- clear to auscultation b/l Heart- regular rhythm; no murmur, normal rate Abdomen- normal bowel sounds, soft, nontender Extremities- no pretibial edema, no calf tenderness (+) decubitus ulcer at least stage 2 bilateral heels Back- open, stage 4 sacral decubitus ulcer, no active discharge noted Neuro-sleeping Skin- warm & dry Laboratory Results: Last 24 Hours Test 11/22/17 07:02 11/22/17 12:26 White Blood Count 6.79 K/uL Red Blood Count 3.31 M/uL Hemoglobin 10.0 g/dL Hematocrit 30.7 % Mean Corpuscular Volume 92.7 fL Mean Corpuscular Hemoglobin 30.2 pg Mean Corpuscular Hemoglobin Concent 32.6 g/dl RDW Standard Deviation 52.8 fL RDW Coefficient of Variation 15.7 % Platelet Count 325 K/uL Mean Platelet Volume 10.2 fL Sodium Level 143 mmol/L Potassium Level 4.1 mmol/L Chloride Level 112 mmol/L Carbon Dioxide Level 26 mmol/L Anion Gap 6.0 mmol/L Blood Urea Nitrogen 13 mg/dl Creatinine 0.71 mg/dl Est Creatinine Clear Calc Drug Dose 66.3 ml/min Estimated GFR () 100.6 Estimated GFR (Non- 86.8 BUN/Creatinine Ratio 18.7 Random Glucose 97 mg/dl Calcium Level 8.4 mg/dl Heparin Anti-Xa Act, Low Molec Wt 0.88 IU/ML Assessment & Plan SEPSIS SECONDARY TO INFECTED SACRAL DECUBITUS ULCER Met criteria for sepsis at time of admission per 2001 definition and current CMS guidelines- leukocytosis, tachycardia, tachypnea. Likely source = infected sacral decubitus ulcer. Wound cultures obtained: (+) Proteus and E coli Received broad spectrum antibiotic coverage with piperacillin / tazobactam + vancomycin. Serum lactate 2.22, repeat 1.6. BP's > 90 systolic. DECUBITUS ULCERS Decubitus ulcers of sacrum and bilateral heels. Sacral ulcer unstageable at time of admission, but appears to be deep. Initially received IV vancomycin and piperacillin / tazobactam. ID consulted and Wound Care consulted. Wound culture growing Proteus mirabilis and E coli. Transitioned from IV piperacillin / tazobactam to ampicillin / sulbactam. Reposition q 2 hrs. Specialty bed per Wound Care Nursing. ID consulted - recommend to transition to Augmentin PO soon Wound Care consulted; sacral wound debrided. Continue local care, enzymatic debridement, IV ampicillin / sulbactam. 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 Monitor for delirium. BPH Has Disla cath due to sacral decubitus ulcer. Stopped tamsulosin; resume if Disla removed. NUTRITION Being followed by Nutrition Service. Receiving supplements. 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 -- maintain indwelling Disla catheter until wound heals. VTE PROPHYLAXIS / RECENT DVT Recent DVT & PE treated with rivaroxaban. Rivaroxaban order continued at time of admission, but not taking PO meds consistently. Transitioned to SQ enoxaparin; Pharmacy consulted for dosing. DISPOSITION Will require long-term intermediate care. -- per case management, plan is to transition to [facility] Current Inpatient Medications: Current Inpatient Medications Medications (Trade) Dose Ordered Sig/Amos Route Start Time Stop Time Status Last Admin Dose Admin Polyethylene (Miralax Powder Packet) 17 gm DAILY PRN PO 11/11/17 22:30 12/11/17 22:29 Ondansetron HCl (Zofran Inj) 4 mg Q6H PRN IV 11/11/17 21:15 12/11/17 21:14 Acetaminophen (Tylenol Supp) 650 mg Q4H PRN [place] 11/11/17 22:00 12/11/17 21:59 Morphine Sulfate (MoRPHine SULFATE INJ) 1 mg Q4H PRN IV 11/11/17 22:00 11/25/17 21:59 11/18/17 17:19 1 MG Olanzapine (Zyprexa Tab) 2.5 mg HS PO 11/12/17 21:00 12/12/17 20:59 11/17/17 20:53 2.5 MG Tamsulosin HCl (Flomax Cap) 0.4 mg HS PO 11/12/17 21:00 12/12/17 20:59 11/17/17 20:53 0.4 MG Trazodone HCl (Desyrel Tab) 50 mg HS PRN PO 11/11/17 22:00 12/11/17 21:59 Lorazepam (Ativan Tab) 1 mg Q6H PRN SL 11/11/17 22:30 12/11/17 22:29 Enoxaparin Sodium (Lovenox Inj) 80 mg Q12H SQ 11/14/17 08:00 12/14/17 07:59 11/22/17 07:31 80 MG Ampicillin Sodium/ Sulbactam Sodium 3000 mg/Sodium Chloride 108 ml @ 200 mls/hr Q6H IV 11/14/17 12:00 12/14/17 11:59 11/22/17 12:16 200 MLS/HR Ampicillin Sodium/ Sulbactam Sodium (Consult) 1 ea UD PRN N/A 11/14/17 09:00 12/14/17 08:59 Collagenase (Santyl Oint) 1 appln DAILY EXT 11/14/17 13:00 12/14/17 12:59 11/22/17 07:31 1 APPLN Enoxaparin Sodium (Consult) 1 ea UD PRN N/A 11/17/17 13:15 12/17/17 13:14 Enteral Nutritional Formula (Boost Plus Vanilla) 1 can BIDM PO 11/17/17 17:00 12/17/17 16:59 11/20/17 16:57 1 CAN
[2017-11-22] MEDS: OLANZAPINE 2.5 MG TAB PO SCH (21:22)
[2017-11-22] MEDS: TAMSULOSIN HCL 0.4 MG CAP PO SCH (21:22)
[2017-11-22 23:08] VITALS: BP 102/62; PULSE 59; TEMP 37.2; O2SAT 97
[2017-11-23] MEDS: AMPICILLIN/SULBACTAM SOD INJ 3,000 MG in SODIUM CHLORIDE 0.9% 100ML 100 ML IV SCH ×4 (00:21→18:23)
[2017-11-23 07:03] LABS: HEMATOCRIT 30.2 % (42-52); HEMOGLOBIN 9.6 g/dL (14.0-18.0); MEAN CELL VOLUME 92.9 fL (80-100); MEAN CORPUSCULAR HEMOGLOBIN 29.5 pg (25-34); MEAN CORPUSCULAR HGB CONC 31.8 g/dl (32-36); MEAN PLATELET VOLUME 10.3 fL (7.4-10.4); PLATELET COUNT 289 K/uL (130-400); RED CELL DISTRIBUTION WIDTH CV 15.6 % (11.5-14.5); RED CELL DISTRIBUTION WIDTH SD 52.7 fL (36.4-46.3); WHITE BLOOD COUNT 7.45 K/uL (4.8-10.8)
[2017-11-23] MEDS: COLLAGENASE OINT 30 GM TUBE EXT SCH (07:35)
[2017-11-23] MEDS: BOOST PLUS VANILLA PO SCH ×2 (07:35→17:00)
[2017-11-23] MEDS: ENOXAPARIN 80 MG/0.8 ML SYR SQ SCH ×2 (07:35→20:44)
[2017-11-23 07:44] LABS: CREATININE 0.63 mg/dl (0.60-1.40)
[2017-11-23 07:46] VITALS: BP 103/57; PULSE 46; TEMP 36.9; O2SAT 98
[2017-11-23 08:00] VITALS: O2SAT 98
[2017-11-23 15:19] VITALS: BP 111/60; PULSE 84; TEMP 37.6; O2SAT 96
--- NOTE | 2017-11-23 18:22 | Progress Note ---
Medicine Progress Note Date & Time of Visit: Nov 23, 2017 at 18:17. Subjective seen resting in bed, comfortable, sleeping per RN patient was eating his meals today, but mostly sleeping patient is minimally responsive but appears not in distress no other symptoms Objective Last 8 Hrs Date Time Temp Pulse Resp B/P (MAP) Pulse Ox O2 Delivery O2 Flow Rate FiO2 11/23/17 16:00 Room Air 11/23/17 15:19 37.6 84 22 111/60 (77) 96 Room Air Physical Exam: General- sleeping, not in distress Eyes- anicteric Neck- no JVD Lungs- clear breath sounds bilaterally, no rales/wheezes Heart- regular rhythm; no murmur, normal rate Abdomen- normal bowel sounds, soft, nontender Extremities- no pretibial edema, no calf tenderness Neuro-sleeping Skin- warm & dry Laboratory Results: Last 24 Hours Test 11/23/17 06:32 White Blood Count 7.45 K/uL Red Blood Count 3.25 M/uL Hemoglobin 9.6 g/dL Hematocrit 30.2 % Mean Corpuscular Volume 92.9 fL Mean Corpuscular Hemoglobin 29.5 pg Mean Corpuscular Hemoglobin Concent 31.8 g/dl RDW Standard Deviation 52.7 fL RDW Coefficient of Variation 15.6 % Platelet Count 289 K/uL Mean Platelet Volume 10.3 fL Creatinine 0.63 mg/dl Est Creatinine Clear Calc Drug Dose 74.7 ml/min Estimated GFR () 105.6 Estimated GFR (Non- 91.1 Assessment & Plan SEPSIS SECONDARY TO INFECTED SACRAL DECUBITUS ULCER Met criteria for sepsis at time of admission per 2001 definition and current CMS guidelines- leukocytosis, tachycardia, tachypnea. Likely source = infected sacral decubitus ulcer. Wound cultures obtained: (+) Proteus and E coli Received broad spectrum antibiotic coverage with piperacillin / tazobactam + vancomycin --> now on Unsasyn DECUBITUS ULCERS Decubitus ulcers of sacrum and bilateral heels. Sacral ulcer unstageable at time of admission, but appears to be deep. Initially received IV vancomycin and piperacillin / tazobactam. ID consulted and Wound Care consulted. Wound culture growing Proteus mirabilis and E coli. Transitioned from IV piperacillin / tazobactam to ampicillin / sulbactam. ID consulted - possible transition to PO Augmentin per ID -- Wound Care consulted; sacral wound debrided. Continue local care, enzymatic debridement, IV ampicillin / sulbactam. 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 -- no behavioral issues so far BPH Has Disla cath due to sacral decubitus ulcer. Stopped tamsulosin; resume if Disla removed. NUTRITION Being followed by Nutrition Service. Receiving supplements. 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 -- maintain indwelling Disla catheter until wound heals. VTE PROPHYLAXIS / RECENT DVT Recent DVT & PE treated with rivaroxaban. Rivaroxaban order continued at time of admission, but not taking PO meds consistently. Transitioned to SQ enoxaparin; Pharmacy consulted for dosing. DISPOSITION Will require long-term custodial care. -- per case management, plan is to transition to [facility] Current Inpatient Medications: Current Inpatient Medications Medications (Trade) Dose Ordered Sig/Amos Route Start Time Stop Time Status Last Admin Dose Admin Polyethylene (Miralax Powder Packet) 17 gm DAILY PRN PO 11/11/17 22:30 12/11/17 22:29 Ondansetron HCl (Zofran Inj) 4 mg Q6H PRN IV 11/11/17 21:15 12/11/17 21:14 Acetaminophen (Tylenol Supp) 650 mg Q4H PRN [place] 11/11/17 22:00 12/11/17 21:59 Morphine Sulfate (MoRPHine SULFATE INJ) 1 mg Q4H PRN IV 11/11/17 22:00 11/25/17 21:59 11/18/17 17:19 1 MG Olanzapine (Zyprexa Tab) 2.5 mg HS PO 11/12/17 21:00 12/12/17 20:59 11/22/17 21:22 2.5 MG Tamsulosin HCl (Flomax Cap) 0.4 mg HS PO 11/12/17 21:00 12/12/17 20:59 11/22/17 21:22 0.4 MG Trazodone HCl (Desyrel Tab) 50 mg HS PRN PO 11/11/17 22:00 12/11/17 21:59 Lorazepam (Ativan Tab) 1 mg Q6H PRN SL 11/11/17 22:30 12/11/17 22:29 Enoxaparin Sodium (Lovenox Inj) 80 mg Q12H SQ 11/14/17 08:00 12/14/17 07:59 11/23/17 07:35 80 MG Ampicillin Sodium/ Sulbactam Sodium 3000 mg/Sodium Chloride 108 ml @ 200 mls/hr Q6H IV 11/14/17 12:00 12/14/17 11:59 11/23/17 12:49 200 MLS/HR Ampicillin Sodium/ Sulbactam Sodium (Consult) 1 ea UD PRN N/A 11/14/17 09:00 12/14/17 08:59 Collagenase (Santyl Oint) 1 appln DAILY EXT 11/14/17 13:00 12/14/17 12:59 11/23/17 07:35 1 APPLN Enoxaparin Sodium (Consult) 1 ea UD PRN N/A 11/17/17 13:15 12/17/17 13:14 Enteral Nutritional Formula (Boost Plus Vanilla) 1 can BIDM PO 11/17/17 17:00 12/17/17 16:59 11/23/17 07:35 1 CAN
[2017-11-23] MEDS: OLANZAPINE 2.5 MG TAB PO SCH (20:44)
[2017-11-23] MEDS: TAMSULOSIN HCL 0.4 MG CAP PO SCH (20:44)
[2017-11-24] MEDS: AMPICILLIN/SULBACTAM SOD INJ 3,000 MG in SODIUM CHLORIDE 0.9% 100ML 100 ML IV SCH ×5 (00:21→23:48)
[2017-11-24 00:22] VITALS: BP 127/70; PULSE 92; TEMP 36.4; O2SAT 93
[2017-11-24 07:37] VITALS: BP 96/52; PULSE 84; TEMP 36.7; O2SAT 97
[2017-11-24 08:00] VITALS: O2SAT 97
[2017-11-24] MEDS: ENOXAPARIN 80 MG/0.8 ML SYR SQ SCH ×2 (08:16→20:40)
[2017-11-24] MEDS: BOOST PLUS VANILLA PO SCH ×2 (08:16→17:00)
[2017-11-24] MEDS: COLLAGENASE OINT 30 GM TUBE EXT SCH (08:16)
[2017-11-24] MEDS ORDERED: NURSING VERBAL MED ORDER ONE (13:45)
[2017-11-24 15:45] VITALS: BP 148/82; PULSE 75; TEMP 36.7; O2SAT 96
--- NOTE | 2017-11-24 18:40 | Progress Note ---
Medicine Progress Note Date & Time of Visit: Nov 24, 2017 at 18:38. Subjective sleeping, comfortable per RN ate 90% of dinner no acute issues through the day has been sleeping mostly no other symptoms/signs Objective Last 8 Hrs Date Time Temp Pulse Resp B/P (MAP) Pulse Ox O2 Delivery O2 Flow Rate FiO2 11/24/17 16:00 Room Air 11/24/17 15:45 36.7 75 20 148/82 (104) 96 Room Air Physical Exam: General- sleeping, not in distress Eyes- anicteric Neck- no JVD Lungs- clear BS BL, no rales/wheezes Heart- regular rhythm; no murmur, normal rate Abdomen- normal bowel sounds, soft, nontender Extremities- no pretibial edema, no calf tenderness Neuro-sleeping Skin- warm & dry Assessment & Plan SEPSIS SECONDARY TO INFECTED SACRAL DECUBITUS ULCER Met criteria for sepsis at time of admission per 2001 definition and current CMS guidelines- leukocytosis, tachycardia, tachypnea. Likely source = infected sacral decubitus ulcer. Wound cultures obtained: (+) Proteus and E coli Received broad spectrum antibiotic coverage with piperacillin / tazobactam + vancomycin --> now on Unasyn DECUBITUS ULCERS Decubitus ulcers of sacrum and bilateral heels. Sacral ulcer unstageable at time of admission, but appears to be deep. Initially received IV vancomycin and piperacillin / tazobactam. ID consulted and Wound Care consulted. Wound culture growing Proteus mirabilis and E coli. Transitioned from IV piperacillin / tazobactam to ampicillin / sulbactam. ID consulted - possible transition to PO Augmentin per ID -- Wound Care consulted; sacral wound debrided. looks better per wafer abrading machine tender Continue local care, enzymatic debridement, IV ampicillin / sulbactam. 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 -- no behavioral issues so far BPH Has Disla cath due to sacral decubitus ulcer. Stopped tamsulosin; resume if Disla removed. NUTRITION Being followed by Nutrition Service. Receiving supplements. 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 -- maintain indwelling Disla catheter until wound heals. VTE PROPHYLAXIS / RECENT DVT Recent DVT & PE treated with rivaroxaban. Rivaroxaban order continued at time of admission, but not taking PO meds consistently. Transitioned to SQ enoxaparin; Pharmacy consulted for dosing. DISPOSITION Will require long-term halfway care. -- per case management, plan is to transition to [facility] awaiting ID recommendations re: transition to PO antibiotic Current Inpatient Medications: Current Inpatient Medications Medications (Trade) Dose Ordered Sig/Amos Route Start Time Stop Time Status Last Admin Dose Admin Polyethylene (Miralax Powder Packet) 17 gm DAILY PRN PO 11/11/17 22:30 12/11/17 22:29 Ondansetron HCl (Zofran Inj) 4 mg Q6H PRN IV 11/11/17 21:15 12/11/17 21:14 Acetaminophen (Tylenol Supp) 650 mg Q4H PRN [place] 11/11/17 22:00 12/11/17 21:59 Morphine Sulfate (MoRPHine SULFATE INJ) 1 mg Q4H PRN IV 11/11/17 22:00 11/25/17 21:59 11/18/17 17:19 1 MG Olanzapine (Zyprexa Tab) 2.5 mg HS PO 11/12/17 21:00 12/12/17 20:59 11/22/17 21:22 2.5 MG Tamsulosin HCl (Flomax Cap) 0.4 mg HS PO 11/12/17 21:00 12/12/17 20:59 11/22/17 21:22 0.4 MG Trazodone HCl (Desyrel Tab) 50 mg HS PRN PO 11/11/17 22:00 12/11/17 21:59 Lorazepam (Ativan Tab) 1 mg Q6H PRN SL 11/11/17 22:30 12/11/17 22:29 Enoxaparin Sodium (Lovenox Inj) 80 mg Q12H SQ 11/14/17 08:00 12/14/17 07:59 11/24/17 08:16 80 MG Ampicillin Sodium/ Sulbactam Sodium 3000 mg/Sodium Chloride 108 ml @ 200 mls/hr Q6H IV 11/14/17 12:00 12/14/17 11:59 11/24/17 18:10 200 MLS/HR Ampicillin Sodium/ Sulbactam Sodium (Consult) 1 ea UD PRN N/A 11/14/17 09:00 12/14/17 08:59 Enoxaparin Sodium (Consult) 1 ea UD PRN N/A 11/17/17 13:15 12/17/17 13:14 Enteral Nutritional Formula (Boost Plus Vanilla) 1 can BIDM PO 11/17/17 17:00 12/17/17 16:59 11/24/17 17:00 1 CAN
[2017-11-24] MEDS: TAMSULOSIN HCL 0.4 MG CAP PO SCH (20:38)
[2017-11-24] MEDS: OLANZAPINE 2.5 MG TAB PO SCH (20:39)
[2017-11-24 23:16] VITALS: BP 157/63; PULSE 59; TEMP 37.2; O2SAT 97
[2017-11-25] MEDS: AMPICILLIN/SULBACTAM SOD INJ 3,000 MG in SODIUM CHLORIDE 0.9% 100ML 100 ML IV SCH (05:25)
[2017-11-25 07:08] LABS: HEMATOCRIT 31.7 % (42-52); HEMOGLOBIN 9.9 g/dL (14.0-18.0); MEAN CELL VOLUME 94.1 fL (80-100); MEAN CORPUSCULAR HEMOGLOBIN 29.4 pg (25-34); MEAN CORPUSCULAR HGB CONC 31.2 g/dl (32-36); MEAN PLATELET VOLUME 10.4 fL (7.4-10.4); PLATELET COUNT 285 K/uL (130-400); RED CELL DISTRIBUTION WIDTH CV 16.1 % (11.5-14.5); RED CELL DISTRIBUTION WIDTH SD 54.5 fL (36.4-46.3); WHITE BLOOD COUNT 7.74 K/uL (4.8-10.8)
[2017-11-25 07:09] VITALS: BP 133/70; PULSE 70; TEMP 36.4; O2SAT 95
[2017-11-25 07:33] LABS: CREATININE 0.65 mg/dl (0.60-1.40)
[2017-11-25] MEDS: ENOXAPARIN 80 MG/0.8 ML SYR SQ SCH ×2 (07:42→20:14)
[2017-11-25 08:00] VITALS: O2SAT 97
[2017-11-25] MEDS: BOOST PLUS VANILLA PO SCH ×2 (10:42→18:08)
[2017-11-25] MEDS ORDERED: AUGMENTIN CONSULT PHARMACY PRN (11:00)
[2017-11-25] MEDS: AMOXICILLIN/CLAVULANATE SUSP 400 MG/5 ML PO SCH ×2 (12:41→18:07)
[2017-11-25 14:47] VITALS: BP 111/71; PULSE 73; TEMP 37.1; O2SAT 96
--- NOTE | 2017-11-25 18:55 | Infectious Disease Progress Nt ---
Progress Note Date of Service Nov 25, 2017. Subjective Pt evaluation today including: conversation w/ patient, conversation w/ family , physical exam, chart review, lab review, review of studies, conversation w/ transformation consultant, review of inpatient medication list Patient remains non communicative. Hemodynamically stable. No fever. All Other Systems: Reviewed and Negative Medications Current Inpatient Medications Medications (Trade) Dose Ordered Sig/Amos Route Start Time Stop Time Status Last Admin Dose Admin Polyethylene (Miralax Powder Packet) 17 gm DAILY PRN PO 11/11/17 22:30 12/11/17 22:29 Ondansetron HCl (Zofran Inj) 4 mg Q6H PRN IV 11/11/17 21:15 12/11/17 21:14 Acetaminophen (Tylenol Supp) 650 mg Q4H PRN [place] 11/11/17 22:00 12/11/17 21:59 Morphine Sulfate (MoRPHine SULFATE INJ) 1 mg Q4H PRN IV 11/11/17 22:00 11/25/17 21:59 11/18/17 17:19 1 MG Olanzapine (Zyprexa Tab) 2.5 mg HS PO 11/12/17 21:00 12/12/17 20:59 11/22/17 21:22 2.5 MG Tamsulosin HCl (Flomax Cap) 0.4 mg HS PO 11/12/17 21:00 12/12/17 20:59 11/22/17 21:22 0.4 MG Trazodone HCl (Desyrel Tab) 50 mg HS PRN PO 11/11/17 22:00 12/11/17 21:59 Lorazepam (Ativan Tab) 1 mg Q6H PRN SL 11/11/17 22:30 12/11/17 22:29 Enoxaparin Sodium (Lovenox Inj) 80 mg Q12H SQ 11/14/17 08:00 12/14/17 07:59 11/25/17 07:42 80 MG Enoxaparin Sodium (Consult) 1 ea UD PRN N/A 11/17/17 13:15 12/17/17 13:14 Enteral Nutritional Formula (Boost Plus Vanilla) 1 can BIDM PO 11/17/17 17:00 12/17/17 16:59 11/25/17 18:08 1 CAN Miscellaneous Information (Pharmacy Consult) 1 ea UD PRN N/A 11/25/17 11:00 12/25/17 10:59 Amoxicillin/ Clavulanate Potassium (Augmentin Susp) 10.9 ml BIDM PO 11/25/17 12:00 12/14/17 11:59 11/25/17 18:07 10.9 ML Objective Vital Signs Date Time Temp Pulse Resp B/P (MAP) Pulse Ox O2 Delivery O2 Flow Rate FiO2 11/25/17 16:00 Room Air 11/25/17 14:47 37.1 73 18 111/71 (84) 96 Room Air 11/25/17 12:00 Room Air 11/25/17 08:00 97 Room Air 11/25/17 07:09 36.4 70 20 133/70 (91) 95 Room Air 11/25/17 00:00 Room Air 11/24/17 23:16 37.2 59 18 157/63 (94) 97 Room Air Physical Exam General Appearance: WD/WN, no apparent distress Eyes: normal inspection, EOMI, sclerae normal ENT: normal ENT inspection, pharynx normal Neck: supple, no adenopathy, thyroid normal, trachea midline Respiratory/Chest: chest non-tender, lungs clear, normal breath sounds, no respiratory distress Cardiovascular: regular rate, rhythm, no gallop, no murmur Abdomen: normal bowel sounds, non tender, soft, no organomegaly Extremities: normal range of motion, non-tender, no calf tenderness Neurologic/Psychiatric: alert, + disoriented Skin: normal color, warm/dry, no rash, + pertinent finding (Dressing intact sacral area) Lymphatic: no adenopathy Laboratory Results Last 24 Hours Test 11/25/17 06:44 White Blood Count 7.74 K/uL Red Blood Count 3.37 M/uL Hemoglobin 9.9 g/dL Hematocrit 31.7 % Mean Corpuscular Volume 94.1 fL Mean Corpuscular Hemoglobin 29.4 pg Mean Corpuscular Hemoglobin Concent 31.2 g/dl RDW Standard Deviation 54.5 fL RDW Coefficient of Variation 16.1 % Platelet Count 285 K/uL Mean Platelet Volume 10.4 fL Creatinine 0.65 mg/dl Est Creatinine Clear Calc Drug Dose 72.4 ml/min Estimated GFR () 104.3 Estimated GFR (Non- 90.0 Assessment and Plan 82-year-old male, nonverbal, bedridden, with fever and clinical picture of sepsis with leukocytosis and elevated lactic acid, with large buttock ulcer, likely source of sepsis with cultures positive for E coli and Proteus. Patient will require prolonged antibiotic therapy given size of decubitus ulcer, and have recommended transition to oral Augmentin 875 milligrams b.i.d. with follow- up the wound Care Center after discharge. We will continue to follow while in hospital.
[2017-11-25] MEDS: OLANZAPINE 2.5 MG TAB PO SCH (20:14)
[2017-11-25] MEDS: TAMSULOSIN HCL 0.4 MG CAP PO SCH (20:15)
--- NOTE | 2017-11-25 20:43 | Progress Note ---
Medicine Progress Note Date & Time of Visit: Nov 25, 2017 at 20:40. Subjective seen resting in bed, minimally responsive ate meals today, takes medications no signs of pain, distress no other issues per staffing assistant Objective Last 8 Hrs Date Time Temp Pulse Resp B/P (MAP) Pulse Ox O2 Delivery O2 Flow Rate FiO2 11/25/17 16:00 Room Air 11/25/17 14:47 37.1 73 18 111/71 (84) 96 Room Air Physical Exam: General- sleeping, not in distress Neck- no JVD Lungs- clear breath sounds bilaterally Heart- regular rhythm; no murmur, normal rate Abdomen- normal bowel sounds, soft, nontender Back- st 4 ulcer, no signs of active infection Extremities- no pretibial edema, no calf tenderness Neuro-sleeping, somewhat awakens to tactile stimuli Skin- warm & dry Laboratory Results: Last 24 Hours Test 11/25/17 06:44 White Blood Count 7.74 K/uL Red Blood Count 3.37 M/uL Hemoglobin 9.9 g/dL Hematocrit 31.7 % Mean Corpuscular Volume 94.1 fL Mean Corpuscular Hemoglobin 29.4 pg Mean Corpuscular Hemoglobin Concent 31.2 g/dl RDW Standard Deviation 54.5 fL RDW Coefficient of Variation 16.1 % Platelet Count 285 K/uL Mean Platelet Volume 10.4 fL Creatinine 0.65 mg/dl Est Creatinine Clear Calc Drug Dose 72.4 ml/min Estimated GFR () 104.3 Estimated GFR (Non- 90.0 Assessment & Plan SEPSIS SECONDARY TO INFECTED SACRAL DECUBITUS ULCER Met criteria for sepsis at time of admission per 2001 definition and current CMS guidelines- leukocytosis, tachycardia, tachypnea. Likely source = infected sacral decubitus ulcer. Wound cultures obtained: (+) Proteus and E coli Received broad spectrum antibiotic coverage with piperacillin / tazobactam + vancomycin --> was on Unasyn--> changed to Augmentin today DECUBITUS ULCERS Decubitus ulcers of sacrum and bilateral heels. Sacral ulcer unstageable at time of admission, but appears to be deep. Initially received IV vancomycin and piperacillin / tazobactam. ID consulted and Wound Care consulted. Wound culture growing Proteus mirabilis and E coli. Transitioned from IV piperacillin / tazobactam to ampicillin / sulbactam. ID consulted - transitioned to PO Augmentin per ID today -- Wound Care consulted; sacral wound debrided. looks better per hand bender Continue local care, enzymatic debridement DEMENTIA May have combination of Alzheimer's and vascular dementia. -- no behavioral issues so far BPH Has Disla cath due to sacral decubitus ulcer. Stopped tamsulosin; resume if Disla removed. NUTRITION Being followed by Nutrition Service. Receiving supplements. 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 -- maintain indwelling Disla catheter until wound heals. VTE PROPHYLAXIS / RECENT DVT Recent DVT & PE treated with rivaroxaban. Rivaroxaban order continued at time of admission, but not taking PO meds consistently. Transitioned to SQ enoxaparin; Pharmacy consulted for dosing. DISPOSITION Will require long-term half-way care. -- per case management, plan is to transition to [facility] tomorrow Current Inpatient Medications: Current Inpatient Medications Medications (Trade) Dose Ordered Sig/Amos Route Start Time Stop Time Status Last Admin Dose Admin Polyethylene (Miralax Powder Packet) 17 gm DAILY PRN PO 11/11/17 22:30 12/11/17 22:29 Ondansetron HCl (Zofran Inj) 4 mg Q6H PRN IV 11/11/17 21:15 12/11/17 21:14 Acetaminophen (Tylenol Supp) 650 mg Q4H PRN [place] 11/11/17 22:00 12/11/17 21:59 Morphine Sulfate (MoRPHine SULFATE INJ) 1 mg Q4H PRN IV 11/11/17 22:00 11/25/17 21:59 11/18/17 17:19 1 MG Olanzapine (Zyprexa Tab) 2.5 mg HS PO 11/12/17 21:00 12/12/17 20:59 11/22/17 21:22 2.5 MG Tamsulosin HCl (Flomax Cap) 0.4 mg HS PO 11/12/17 21:00 12/12/17 20:59 11/22/17 21:22 0.4 MG Trazodone HCl (Desyrel Tab) 50 mg HS PRN PO 11/11/17 22:00 12/11/17 21:59 Lorazepam (Ativan Tab) 1 mg Q6H PRN SL 11/11/17 22:30 12/11/17 22:29 Enoxaparin Sodium (Lovenox Inj) 80 mg Q12H SQ 11/14/17 08:00 12/14/17 07:59 11/25/17 20:14 80 MG Enoxaparin Sodium (Consult) 1 [facility] PRN N/A 11/17/17 13:15 12/17/17 13:14 Enteral Nutritional Formula (Boost Plus Vanilla) 1 can BIDM PO 11/17/17 17:00 12/17/17 16:59 11/25/17 18:08 1 CAN Miscellaneous Information (Pharmacy Consult) 1 [facility] PRN N/A 11/25/17 11:00 12/25/17 10:59 Amoxicillin/ Clavulanate Potassium (Augmentin Susp) 10.9 ml BIDM PO 11/25/17 12:00 12/14/17 11:59 11/25/17 18:07 10.9 ML
[2017-11-25 23:02] VITALS: BP 126/83; PULSE 108; TEMP 36.3; O2SAT 92
[2017-11-26 06:57] VITALS: BP 113/67; PULSE 63; TEMP 36.7; O2SAT 96
[2017-11-26 08:00] VITALS: O2SAT 96
[2017-11-26] MEDS: BOOST PLUS VANILLA PO SCH ×2 (08:00→17:00)
[2017-11-26 08:22] LABS: HEMATOCRIT 34.6 % (42-52); HEMOGLOBIN 10.8 g/dL (14.0-18.0); MEAN CELL VOLUME 94.3 fL (80-100); MEAN CORPUSCULAR HEMOGLOBIN 29.4 pg (25-34); MEAN CORPUSCULAR HGB CONC 31.2 g/dl (32-36); MEAN PLATELET VOLUME 10.3 fL (7.4-10.4); PLATELET COUNT 267 K/uL (130-400); RED CELL DISTRIBUTION WIDTH CV 16.2 % (11.5-14.5); RED CELL DISTRIBUTION WIDTH SD 55.4 fL (36.4-46.3); WHITE BLOOD COUNT 9.48 K/uL (4.8-10.8)
[2017-11-26 08:58] LABS: CREATININE 0.67 mg/dl (0.60-1.40)
[2017-11-26] MEDS: AMOXICILLIN/CLAVULANATE SUSP 400 MG/5 ML PO SCH ×2 (11:12→18:09)
[2017-11-26] MEDS: ENOXAPARIN 80 MG/0.8 ML SYR SQ SCH ×2 (11:13→19:51)
--- NOTE | 2017-11-26 13:29 | Progress Note ---
Medicine Progress Note Date & Time of Visit: Nov 26, 2017 at 13:21. Subjective seen resting in bed, sleeping not in distress did not finish meal today but taking medications with no problems per RN no signs of discomfort no other signs/symptoms noted today Objective Last 8 Hrs Date Time Temp Pulse Resp B/P (MAP) Pulse Ox O2 Delivery O2 Flow Rate FiO2 11/26/17 08:00 96 Room Air 11/26/17 06:57 36.7 63 18 113/67 (82) 96 Room Air Physical Exam: General- sleeping, not in distress Neck- no JVD Lungs- clear breath sounds bilaterally, no wheezing, nor ales Heart- regular rhythm; no murmur, normal rate Abdomen- normal bowel sounds, soft, nontender Back- st 4 ulcer, no signs of active infection Extremities- no pretibial edema, no calf tenderness pressure ulcer on both hells Neuro-sleeping, somewhat awakens to tactile stimuli Skin- warm & dry Laboratory Results: Last 24 Hours Test 11/26/17 08:07 White Blood Count 9.48 K/uL Red Blood Count 3.67 M/uL Hemoglobin 10.8 g/dL Hematocrit 34.6 % Mean Corpuscular Volume 94.3 fL Mean Corpuscular Hemoglobin 29.4 pg Mean Corpuscular Hemoglobin Concent 31.2 g/dl RDW Standard Deviation 55.4 fL RDW Coefficient of Variation 16.2 % Platelet Count 267 K/uL Mean Platelet Volume 10.3 fL Creatinine 0.67 mg/dl Est Creatinine Clear Calc Drug Dose 70.2 ml/min Estimated GFR () 103.0 Estimated GFR (Non- 88.9 Assessment & Plan SEPSIS SECONDARY TO INFECTED SACRAL DECUBITUS ULCER Met criteria for sepsis at time of admission per 2001 definition and current CMS guidelines- leukocytosis, tachycardia, tachypnea. Likely source = infected sacral decubitus ulcer. Wound cultures obtained: (+) Proteus and E coli Received broad spectrum antibiotic coverage with piperacillin / tazobactam + vancomycin --> changed to Unasyn--> changed to Augmentin BID PO Day 2 DECUBITUS ULCERS Decubitus ulcers of sacrum and bilateral heels. Sacral ulcer unstageable at time of admission, but appears to be deep. Initially received IV vancomycin and piperacillin / tazobactam. ID consulted and Wound Care consulted. Wound culture growing Proteus mirabilis and E coli. Transitioned from IV piperacillin / tazobactam to ampicillin / sulbactam. ID consulted Dr. Stubbs transitioned to PO Augmentin BID to continue indefinitely -- Wound Care Service consulted; sacral wound debrided. looks better per systems architect Continue local care daily, monitor closely -- Wound Care Instructions: TO HEELS- CLEAN WITH SALINE. COVER WITH AQUACEL AG AND OPTIFOAM. CHANGE DAILY. WAFFLE BOOTS AT ALL TIME TO BUTTOCKS/SACRUM/COCCYX AREAS- IRRIGATE WITH SALINE. FILL WITH AQUACEL AG AND COVER WITH OPTIFOAM. CHANGE DAILY AND NEEDED. WAFFLE BOOTS [id number] MATTRESS TURN AT LEAST [id number] MUST FOLLOW-UP WITH [facility] WITHIN 1 WEEK OF DISCHARGE. 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 -- no behavioral issues noted BPH Has Disla cath due to sacral decubitus ulcer. monitor NUTRITION followed by Nutrition Service. Receiving supplements. 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 -- maintain indwelling Disla catheter until wound heals. 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 Rivaroxaban order continued at time of admission, but was not taking PO meds consistently. Transitioned to SQ enoxaparin; Pharmacy consulted for dosing. monitor, and transition to Rivaroxaban accordingly DISPOSITION transition to [facility] tomorrow Primary Care Physician ff up c/o [facility] ff up with Infectious Disease Clinic c/o Dr. Stubbs in 1 week ff up with Wound Care Clinic in 1 week Current Inpatient Medications: Current Inpatient Medications Medications (Trade) Dose Ordered Sig/Amos Route Start Time Stop Time Status Last Admin Dose Admin Polyethylene (Miralax Powder Packet) 17 gm DAILY PRN PO 11/11/17 22:30 12/11/17 22:29 Ondansetron HCl (Zofran Inj) 4 mg Q6H PRN IV 11/11/17 21:15 12/11/17 21:14 Acetaminophen (Tylenol Supp) 650 mg Q4H PRN ND 11/11/17 22:00 12/11/17 21:59 Olanzapine (Zyprexa Tab) 2.5 mg HS PO 11/12/17 21:00 12/12/17 20:59 11/22/17 21:22 2.5 MG Tamsulosin HCl (Flomax Cap) 0.4 mg HS PO 11/12/17 21:00 12/12/17 20:59 11/22/17 21:22 0.4 MG Trazodone HCl (Desyrel Tab) 50 mg HS PRN PO 11/11/17 22:00 12/11/17 21:59 Lorazepam (Ativan Tab) 1 mg Q6H PRN SL 11/11/17 22:30 12/11/17 22:29 Enoxaparin Sodium (Lovenox Inj) 80 mg Q12H SQ 11/14/17 08:00 12/14/17 07:59 11/26/17 11:13 80 MG Enoxaparin Sodium (Consult) 1 [facility] PRN N/A 11/17/17 13:15 12/17/17 13:14 Enteral Nutritional Formula (Boost Plus Vanilla) 1 can BIDM PO 11/17/17 17:00 12/17/17 16:59 11/26/17 08:00 1 CAN Miscellaneous Information (Pharmacy Consult) 1 [facility] PRN N/A 11/25/17 11:00 12/25/17 10:59 Amoxicillin/ Clavulanate Potassium (Augmentin Susp) 10.9 ml BIDM PO 11/25/17 12:00 12/14/17 11:59 11/26/17 11:12 10.9 ML
[2017-11-26] MEDS ORDERED: NUTR-977 PO (13:33)
[2017-11-26] MEDS ORDERED: LVNIS80 SQ (13:33)
[2017-11-26] MEDS ORDERED: AMOX400S2 PO (13:33)
--- NOTE | 2017-11-26 13:49 | Discharge Instructions ---
Discharge Instructions Date of Service Nov 29, 2017. Admission Reason for Admission: Infected Decubitus Ulcer Discharge Discharge Diagnosis / Problem: SEPSIS SECONDARY TO INFECTED SACRAL DECUBITUS ULCER Discharge Goals Goal(s): Diagnostic testing, Therapeutic intervention Activity Recommendations Activity Level: Assistance Required Therapies: Speech Therapy NEEDS ASSISTANCE WITH ALL ACTIVITIES OF DAILY LIVING INCLUDING FEEDING . Additional Information Patient informed of condition: No (PATIENT HAS ADVANCED DEMENTIA, TALKED TO ) Advance Directives: No (UNKNOWN) DNR: Yes Level of Care: Skilled Communicable Disease: No Prognosis: Stable [place] Catheter: Yes Instructions / Follow-Up Instructions / Follow-Up TURN PATIENT EVERY 2 HOURS. PLEASE FOLLOW WOUND CARE NURSE INSTRUCTIONS: TO HEELS- CLEAN WITH SALINE. COVER WITH AQUACEL AG AND OPTIFOAM. CHANGE DAILY. WAFFLE BOOTS AT ALL TIME TO BUTTOCKS/SACRUM/COCCYX AREAS- IRRIGATE WITH SALINE. FILL WITH AQUACEL AG AND COVER WITH OPTIFOAM. CHANGE DAILY AND NEEDED. WAFFLE BOOTS [id number] MATTRESS TURN AT LEAST [id number] MUST FOLLOW-UP WITH [facility] WITHIN 1 WEEK OF DISCHARGE. SPEECH THERAPY EVALUATION: 1. Pureed diet, NECTAR thick liquids. 2. Aspiration precautions, no straws. Fully upright for meals and for 30 minutes after meals. 3. Will need assistance with eating. Only feed when awake/alert, and able. to participate. Medication whole or crushed and placed in a carrier such as pudding or applesauce. 4. Oral care (as tolerated) prior to and after meals, and before bed, to minimize oral bacteria that can be aspirated in saliva. 5. Would benefit from continued speech therapy upon discharge for carryover of diet, strategies for swallow safety, and modfy diet further as indicated. NEEDS ASSISTANCE WITH ALL ACTIVITIES OF DAILY LIVING. PLEASE REFER TO ACCOMPANYING HOSPITAL DISCHARGE SUMMARY. FOLLOW UP WITH WOUND CARE SERVICE IN [facility] IN 1 WEEK. FOLLOW UP WITH INFECTIOUS DISEASE CLINIC C/O DR. BRAR IN 1 WEEK. Current Hospital Diet Patient's current hospital diet: Regular Diet Discharge Diet Recommended Diet: Regular Diet Diet Texture: Pureed (blended smooth) Liquid Consistency: [place] Thick Procedures Procedures Performed: CT HEAD, XRAY OF FOOT AND COCCYX Pending Studies Studies pending at discharge: no Physician Orders On Transfer Special Precautions: TURN PATIENT EVERY 2 HOURS. PLEASE FOLLOW WOUND CARE NURSE INSTRUCTIONS: TO HEELS- CLEAN WITH SALINE. COVER WITH AQUACEL AG AND OPTIFOAM. CHANGE DAILY. WAFFLE BOOTS AT ALL TIME TO BUTTOCKS/SACRUM/COCCYX AREAS- IRRIGATE WITH SALINE. FILL WITH AQUACEL AG AND COVER WITH OPTIFOAM. CHANGE DAILY AND NEEDED. WAFFLE BOOTS [id number] MATTRESS TURN AT LEAST [id number] MUST FOLLOW-UP WITH [facility] WITHIN 1 WEEK OF DISCHARGE. SPEECH THERAPY EVALUATION: 1. Pureed diet, NECTAR thick liquids. 2. Aspiration precautions, no straws. Fully upright for meals and for 30 minutes after meals. 3. Will need assistance with eating. Only feed when awake/alert, and able. to participate. Medication whole or crushed and placed in a carrier such as pudding or applesauce. 4. Oral care (as tolerated) prior to and after meals, and before bed, to minimize oral bacteria that can be aspirated in saliva. 5. Would benefit from continued speech therapy upon discharge for carryover of diet, strategies for swallow safety, and modfy diet further as indicated. NEEDS ASSISTANCE WITH ALL ACTIVITIES OF DAILY LIVING. PLEASE REFER TO ACCOMPANYING HOSPITAL DISCHARGE SUMMARY. FOLLOW UP WITH WOUND CARE SERVICE IN [facility] IN 1 WEEK. FOLLOW UP WITH INFECTIOUS DISEASE CLINIC C/O DR. BRAR IN 1 WEEK. Medical Emergencies . Who to Call and When: Medical Emergencies: If at any time you feel your situation is an emergency, please call 911 immediately. . Non-Emergent Contact Non-Emergency issues call your: Primary Care Provider, Specialist (INFECTIOUS DISEASE, WOUND CARE CLINIC) Call Non-Emergent contact if: you have a fever, wound has increased drainage, wound has increased redness, wound has increased pain, you have any medication questions . . "Provider Documentation" section prepared by Sonny Odell. . Core Measure Problem Core Measures: None
[2017-11-26 15:28] VITALS: BP 110/58; PULSE 60; TEMP 36.7; O2SAT 96
[2017-11-26] MEDS: OLANZAPINE 2.5 MG TAB PO SCH (20:59)
[2017-11-26] MEDS: TAMSULOSIN HCL 0.4 MG CAP PO SCH (20:59)
[2017-11-26 22:56] VITALS: BP 103/64; PULSE 77; TEMP 36.4; O2SAT 96
[2017-11-27 06:56] VITALS: BP 117/71; PULSE 67; TEMP 36.9; O2SAT 97
[2017-11-27 08:00] VITALS: O2SAT 97
[2017-11-27] MEDS: AMOXICILLIN/CLAVULANATE SUSP 400 MG/5 ML PO SCH ×2 (08:00→16:58)
[2017-11-27] MEDS: BOOST PLUS VANILLA PO SCH ×2 (08:00→16:58)
[2017-11-27] MEDS: ENOXAPARIN 80 MG/0.8 ML SYR SQ SCH ×2 (09:29→22:11)
--- NOTE | 2017-11-27 13:36 | Progress Note ---
Medicine Progress Note Date & Time of Visit: Nov 27, 2017 at 13:30. Subjective seen sleeping, rousable with tactile stimuli no signs of pain, distress had few bites for breakfast and lunch, quarter of boost no other signs/symptoms noted Objective Last 8 Hrs Date Time Temp Pulse Resp B/P (MAP) Pulse Ox O2 Delivery O2 Flow Rate FiO2 11/27/17 08:00 97 Room Air 11/27/17 06:56 36.9 67 18 117/71 (86) 97 Room Air Physical Exam: General- sleeping, not in distress Neck- no JVD Lungs- clear breath sounds , no rales, no wheezes bilaterally Heart- regular rhythm; no murmur, normal rate Abdomen- normal bowel sounds, soft, nontender Back- st 4 ulcer, no signs of active infection, no bleeding, no yellow discharge just granulation tissue, no malodor Extremities- no pretibial edema, no calf tenderness pressure ulcer on both heels- no signs of active infection Neuro-sleeping, awakens to tactile stimuli Skin- warm & dry Assessment & Plan SEPSIS SECONDARY TO INFECTED SACRAL DECUBITUS ULCER Met criteria for sepsis at time of admission per 2001 definition and current CMS guidelines- leukocytosis, tachycardia, tachypnea. Likely source = infected sacral decubitus ulcer. Wound cultures obtained: (+) Proteus and E coli Received broad spectrum antibiotic coverage with piperacillin / tazobactam + vancomycin --> changed to Unasyn--> changed to Augmentin BID PO Day 3 DECUBITUS ULCERS Decubitus ulcers of sacrum and bilateral heels. Sacral ulcer unstageable at time of admission, but appears to be deep. Initially received IV vancomycin and piperacillin / tazobactam. ID consulted and Wound Care consulted. Wound culture growing Proteus mirabilis and E coli. Transitioned from IV piperacillin / tazobactam to ampicillin / sulbactam. ID consulted Dr. Stubbs transitioned to PO Augmentin BID to continue indefinitely -- Wound Care Service consulted; sacral wound debrided. looks better per steward/stewardess room Continue local care daily, monitor closely -- Wound Care Instructions: TO HEELS- CLEAN WITH SALINE. COVER WITH AQUACEL AG AND OPTIFOAM. CHANGE DAILY. WAFFLE BOOTS AT ALL TIME TO BUTTOCKS/SACRUM/COCCYX AREAS- IRRIGATE WITH SALINE. FILL WITH AQUACEL AG AND COVER WITH OPTIFOAM. CHANGE DAILY AND NEEDED. WAFFLE BOOTS [id number] MATTRESS TURN AT LEAST [id number] MUST FOLLOW-UP WITH [facility] WITHIN 1 WEEK OF DISCHARGE. 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 -- no behavioral issues noted BPH Has Disla cath due to sacral decubitus ulcer. monitor NUTRITION followed by Nutrition Service. Receiving supplements. 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 -- maintain indwelling Disla catheter until wound heals. 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 Rivaroxaban order continued at time of admission, but was not taking PO meds consistently. Transitioned to SQ enoxaparin; Pharmacy consulted for dosing. monitor, and transition to Rivaroxaban accordingly DISPOSITION anticipate transition to [facility] Primary Care Physician ff up c/o [facility] ff up with Infectious Disease Clinic c/o Dr. Stubbs in 1 week ff up with Wound Care Clinic in 1 week Current Inpatient Medications: Current Inpatient Medications Medications (Trade) Dose Ordered Sig/Amos Route Start Time Stop Time Status Last Admin Dose Admin Polyethylene (Miralax Powder Packet) 17 gm DAILY PRN PO 11/11/17 22:30 12/11/17 22:29 Ondansetron HCl (Zofran Inj) 4 mg Q6H PRN IV 11/11/17 21:15 12/11/17 21:14 Acetaminophen (Tylenol Supp) 650 mg Q4H PRN [place] 11/11/17 22:00 12/11/17 21:59 Olanzapine (Zyprexa Tab) 2.5 mg HS PO 11/12/17 21:00 12/12/17 20:59 11/26/17 20:59 2.5 MG Tamsulosin HCl (Flomax Cap) 0.4 mg HS PO 11/12/17 21:00 12/12/17 20:59 11/26/17 20:59 0.4 MG Trazodone HCl (Desyrel Tab) 50 mg HS PRN PO 11/11/17 22:00 12/11/17 21:59 Lorazepam (Ativan Tab) 1 mg Q6H PRN SL 11/11/17 22:30 12/11/17 22:29 Enoxaparin Sodium (Lovenox Inj) 80 mg Q12H SQ 11/14/17 08:00 12/14/17 07:59 11/27/17 09:29 80 MG Enoxaparin Sodium (Consult) 1 ea PRN N/A 11/17/17 13:15 12/17/17 13:14 Enteral Nutritional Formula (Boost Plus Vanilla) 1 can BIDM PO 11/17/17 17:00 12/17/17 16:59 11/27/17 08:00 1 CAN Miscellaneous Information (Pharmacy Consult) 1 [facility] PRN N/A 11/25/17 11:00 12/25/17 10:59 Amoxicillin/ Clavulanate Potassium (Augmentin Susp) 10.9 ml BIDM PO 11/25/17 12:00 12/14/17 11:59 11/27/17 08:00 10.9 ML
[2017-11-27 14:39] VITALS: BP 128/70; PULSE 81; TEMP 36.9; O2SAT 98
[2017-11-27 16:00] VITALS: O2SAT 98
[2017-11-27] MEDS: TAMSULOSIN HCL 0.4 MG CAP PO SCH (22:10)
[2017-11-27] MEDS: OLANZAPINE 2.5 MG TAB PO SCH (22:10)
[2017-11-27 22:55] VITALS: BP 117/64; PULSE 59; TEMP 36.7; O2SAT 95
[2017-11-28 07:03] VITALS: BP 133/75; PULSE 68; TEMP 36.8; O2SAT 95
[2017-11-28 07:14] LABS: HEMATOCRIT 35.2 % (42-52); HEMOGLOBIN 10.9 g/dL (14.0-18.0); MEAN CELL VOLUME 93.6 fL (80-100); MEAN PLATELET VOLUME 11.2 fL (7.4-10.4); PLATELET COUNT 225 K/uL (130-400); RED CELL DISTRIBUTION WIDTH CV 16.1 % (11.5-14.5); RED CELL DISTRIBUTION WIDTH SD 54.8 fL (36.4-46.3); WHITE BLOOD COUNT 6.69 K/uL (4.8-10.8)
[2017-11-28] MEDS: AMOXICILLIN/CLAVULANATE SUSP 400 MG/5 ML PO SCH ×2 (07:51→17:02)
[2017-11-28] MEDS: ENOXAPARIN 80 MG/0.8 ML SYR SQ SCH ×2 (07:51→20:28)
[2017-11-28 07:52] LABS: CREATININE 0.6 mg/dl (0.60-1.40)
[2017-11-28] MEDS: BOOST PLUS VANILLA PO SCH ×2 (08:00→17:02)
[2017-11-28 14:49] VITALS: BP 122/81; PULSE 86; TEMP 37.2; O2SAT 97
[2017-11-28 16:00] VITALS: O2SAT 97
--- NOTE | 2017-11-28 18:35 | Progress Note ---
Medicine Progress Note Date & Time of Visit: Nov 28, 2017 at 18:35. Subjective seen resting in bed, sleeping per staff trainer, patient ate more today at least 50% of his meals no signs of pain, distress taking medications as well no other symptoms Objective Last 8 Hrs Date Time Temp Pulse Resp B/P (MAP) Pulse Ox O2 Delivery O2 Flow Rate FiO2 11/28/17 14:49 37.2 86 20 122/81 (95) 97 Physical Exam: General- sleeping, not in distress Neck- no JVD Lungs- clear breath sounds ,no wheezes, nor ales Heart- regular rhythm; no murmur, normal rate Abdomen- normal bowel sounds, soft, nontender Back- st 4 ulcer, no signs of active infection, no bleeding, no yellow discharge just granulation tissue, no malodor Extremities- no pretibial edema, no calf tenderness pressure ulcer on both heels- no signs of active infection Neuro-sleeping, awakens to tactile stimuli Skin- warm & dry Laboratory Results: Last 24 Hours Test 11/28/17 06:48 White Blood Count 6.69 K/uL Red Blood Count 3.76 M/uL Hemoglobin 10.9 g/dL Hematocrit 35.2 % Mean Corpuscular Volume 93.6 fL Mean Corpuscular Hemoglobin 29.0 pg Mean Corpuscular Hemoglobin Concent 31.0 g/dl RDW Standard Deviation 54.8 fL RDW Coefficient of Variation 16.1 % Platelet Count 225 K/uL Mean Platelet Volume 11.2 fL Creatinine 0.60 mg/dl Est Creatinine Clear Calc Drug Dose 78.4 ml/min Estimated GFR () 107.8 Estimated GFR (Non- 93.0 Assessment & Plan SEPSIS SECONDARY TO INFECTED SACRAL DECUBITUS ULCER Met criteria for sepsis at time of admission per 2001 definition and current CMS guidelines- leukocytosis, tachycardia, tachypnea. Likely source = infected sacral decubitus ulcer. Wound cultures obtained: (+) Proteus and E coli Received broad spectrum antibiotic coverage with piperacillin / tazobactam + vancomycin --> changed to Unasyn--> changed to Augmentin BID PO Day 4 DECUBITUS ULCERS Decubitus ulcers of sacrum and bilateral heels. Sacral ulcer unstageable at time of admission, but appears to be deep. Initially received IV vancomycin and piperacillin / tazobactam. ID consulted and Wound Care consulted. Wound culture growing Proteus mirabilis and E coli. Transitioned from IV piperacillin / tazobactam to ampicillin / sulbactam. ID consulted Dr. Stubbs transitioned to PO Augmentin BID to continue indefinitely -- Wound Care Service consulted; sacral wound debrided. looks better per inspector final assembly conveyor line Continue local care daily, monitor closely -- Wound Care Instructions: TO HEELS- CLEAN WITH SALINE. COVER WITH AQUACEL AG AND OPTIFOAM. CHANGE DAILY. WAFFLE BOOTS AT ALL TIME TO BUTTOCKS/SACRUM/COCCYX AREAS- IRRIGATE WITH SALINE. FILL WITH AQUACEL AG AND COVER WITH OPTIFOAM. CHANGE DAILY AND NEEDED. WAFFLE BOOTS [id number] MATTRESS TURN AT LEAST [id number] MUST FOLLOW-UP WITH [facility] WITHIN 1 WEEK OF DISCHARGE. 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 -- no behavioral issues noted BPH Has Disla cath due to sacral decubitus ulcer. monitor NUTRITION followed by Nutrition Service. Receiving supplements. 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 -- maintain indwelling Disla catheter until wound heals. 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 Rivaroxaban order continued at time of admission, but was not taking PO meds consistently. Transitioned to SQ enoxaparin; Pharmacy consulted for dosing. monitor, and transition to Rivaroxaban accordingly DISPOSITION anticipate transition to SNF when accepted Primary Care Physician ff up c/o [facility] ff up with Infectious Disease Clinic c/o Dr. Stubbs in 1 week ff up with Wound Care Clinic in 1 week Ms. Hogan called last night and this evening for update all questions answered she is agreeable and comfortable with plan of care Young Odell MD Current Inpatient Medications: Current Inpatient Medications Medications (Trade) Dose Ordered Sig/[facility] Route Start Time Stop Time Status Last Admin Dose Admin Polyethylene (Miralax Powder Packet) 17 gm DAILY PRN PO 11/11/17 22:30 12/11/17 22:29 Ondansetron HCl (Zofran Inj) 4 mg Q6H PRN IV 11/11/17 21:15 12/11/17 21:14 Acetaminophen (Tylenol Supp) 650 mg Q4H PRN [place] 11/11/17 22:00 12/11/17 21:59 Olanzapine (Zyprexa Tab) 2.5 mg HS PO 11/12/17 21:00 12/12/17 20:59 11/27/17 22:10 2.5 MG Tamsulosin HCl (Flomax Cap) 0.4 mg HS PO 11/12/17 21:00 12/12/17 20:59 11/27/17 22:10 0.4 MG Trazodone HCl (Desyrel Tab) 50 mg HS PRN PO 11/11/17 22:00 12/11/17 21:59 Lorazepam (Ativan Tab) 1 mg Q6H PRN SL 11/11/17 22:30 12/11/17 22:29 Enoxaparin Sodium (Lovenox Inj) 80 mg Q12H SQ 11/14/17 08:00 12/14/17 07:59 11/28/17 07:51 80 MG Enoxaparin Sodium (Consult) 1 ea UD PRN N/A 11/17/17 13:15 12/17/17 13:14 Enteral Nutritional Formula (Boost Plus Vanilla) 1 can BIDM PO 11/17/17 17:00 12/17/17 16:59 11/28/17 17:02 1 CAN Miscellaneous Information (Pharmacy Consult) 1 ea UD PRN N/A 11/25/17 11:00 12/25/17 10:59 Amoxicillin/ Clavulanate Potassium (Augmentin Susp) 10.9 ml BIDM PO 11/25/17 12:00 12/14/17 11:59 11/28/17 17:02 10.9 ML
[2017-11-28] MEDS: OLANZAPINE 2.5 MG TAB PO SCH (20:29)
[2017-11-28] MEDS: TAMSULOSIN HCL 0.4 MG CAP PO SCH (20:29)
--- NOTE | 2017-11-28 20:45 | Infectious Disease Progress Nt ---
Progress Note Date of Service Nov 28, 2017. Subjective Pt evaluation today including: conversation w/ patient, physical exam, chart review, lab review, review of studies, conversation w/ education consultant, review of inpatient medication list Patient remains non communicative. No obvious problems overnight. Remains afebrile. All Other Systems: Reviewed and Negative Medications Current Inpatient Medications Medications (Trade) Dose Ordered Sig/Amos Route Start Time Stop Time Status Last Admin Dose Admin Polyethylene (Miralax Powder Packet) 17 gm DAILY PRN PO 11/11/17 22:30 12/11/17 22:29 Ondansetron HCl (Zofran Inj) 4 mg Q6H PRN IV 11/11/17 21:15 12/11/17 21:14 Acetaminophen (Tylenol Supp) 650 mg Q4H PRN [place] 11/11/17 22:00 12/11/17 21:59 Olanzapine (Zyprexa Tab) 2.5 mg HS PO 11/12/17 21:00 12/12/17 20:59 11/28/17 20:29 2.5 MG Tamsulosin HCl (Flomax Cap) 0.4 mg HS PO 11/12/17 21:00 12/12/17 20:59 11/28/17 20:29 0.4 MG Trazodone HCl (Desyrel Tab) 50 mg HS PRN PO 11/11/17 22:00 12/11/17 21:59 Lorazepam (Ativan Tab) 1 mg Q6H PRN SL 11/11/17 22:30 12/11/17 22:29 Enoxaparin Sodium (Lovenox Inj) 80 mg Q12H SQ 11/14/17 08:00 12/14/17 07:59 11/28/17 20:28 80 MG Enoxaparin Sodium (Consult) 1 ea UD PRN N/A 11/17/17 13:15 12/17/17 13:14 Enteral Nutritional Formula (Boost Plus Vanilla) 1 can BIDM PO 11/17/17 17:00 12/17/17 16:59 11/28/17 17:02 1 CAN Miscellaneous Information (Pharmacy Consult) 1 ea UD PRN N/A 11/25/17 11:00 12/25/17 10:59 Amoxicillin/ Clavulanate Potassium (Augmentin Susp) 10.9 ml BIDM PO 11/25/17 12:00 2/14/18 11:59 11/28/17 17:02 10.9 ML Objective Vital Signs Date Time Temp Pulse Resp B/P (MAP) Pulse Ox O2 Delivery O2 Flow Rate FiO2 11/28/17 16:00 97 Room Air 11/28/17 14:49 37.2 86 20 122/81 (95) 97 11/28/17 09:57 Room Air 11/28/17 07:03 36.8 68 20 133/75 (94) 95 Nasal Cannula 11/28/17 00:00 Room Air 11/27/17 22:55 36.7 59 20 117/64 (81) 95 Room Air Physical Exam General Appearance: WD/WN, no apparent distress Eyes: normal inspection, EOMI, sclerae normal ENT: normal ENT inspection, pharynx normal Neck: supple, no adenopathy, thyroid normal, trachea midline Respiratory/Chest: chest non-tender, lungs clear, normal breath sounds, no respiratory distress Cardiovascular: regular rate, rhythm, no gallop, no murmur Abdomen: normal bowel sounds, non tender, soft, no organomegaly Extremities: normal inspection, no calf tenderness, normal capillary refill Neurologic/Psychiatric: alert, + disoriented Skin: normal color, warm/dry, no rash Lymphatic: no adenopathy Laboratory Results Last 24 Hours Test 11/28/17 06:48 White Blood Count 6.69 K/uL Red Blood Count 3.76 M/uL Hemoglobin 10.9 g/dL Hematocrit 35.2 % Mean Corpuscular Volume 93.6 fL Mean Corpuscular Hemoglobin 29.0 pg Mean Corpuscular Hemoglobin Concent 31.0 g/dl RDW Standard Deviation 54.8 fL RDW Coefficient of Variation 16.1 % Platelet Count 225 K/uL Mean Platelet Volume 11.2 fL Creatinine 0.60 mg/dl Est Creatinine Clear Calc Drug Dose 78.4 ml/min Estimated GFR () 107.8 Estimated GFR (Non- 93.0 Assessment and Plan 82-year-old male, nonverbal, bedridden, with fever and clinical picture of sepsis with leukocytosis and elevated lactic acid, with large buttock ulcer, likely source of sepsis with cultures positive for E coli and Proteus. Patient will require prolonged antibiotic therapy given size of decubitus ulcer, and have recommended transition to oral Augmentin 875 milligrams b.i.d. with follow- up the wound Care Center after discharge. We will continue to follow while in hospital.
[2017-11-28 23:00] VITALS: O2SAT 97
[2017-11-29 00:22] VITALS: BP 108/65; PULSE 54; TEMP 36.8; O2SAT 94
[2017-11-29 07:27] VITALS: BP 117/72; PULSE 72; TEMP 36.5; O2SAT 97
[2017-11-29] MEDS: ENOXAPARIN 80 MG/0.8 ML SYR SQ SCH (08:15)
[2017-11-29] MEDS: BOOST PLUS VANILLA PO SCH (08:16)
[2017-11-29] MEDS: AMOXICILLIN/CLAVULANATE SUSP 400 MG/5 ML PO SCH (08:17)
[2017-11-29 10:31] VITALS: BP 117/72; PULSE 72; TEMP 36.5; O2SAT 97
--- NOTE | 2017-11-29 10:40 | Progress Note ---
Medicine Progress Note Date & Time of Visit: Nov 29, 2017 at 10:32. Subjective patient seen resting in bed, comfortable no signs of distress, pain ate well this morning per staff took medications this morning no other signs/symptoms, issues per staff awakens with tactile stimuli Objective Last 8 Hrs Date Time Temp Pulse Resp B/P (MAP) Pulse Ox O2 Delivery O2 Flow Rate FiO2 11/29/17 08:00 Room Air 11/29/17 07:27 36.5 72 20 117/72 (87) 97 Physical Exam: General- sleeping, not in distress Neck- no JVD Lungs- clear breath sounds, no rales, no wheezes Heart- regular rhythm; no murmur, normal rate Abdomen- normal bowel sounds, soft, nontender Back- st 4 ulcer, no signs of active infection, no bleeding, no discharge , scant granulation tissue, no malodor Extremities- no pretibial edema, no calf tenderness pressure ulcer on both heels- no signs of active infection Neuro-sleeping, awakens to tactile stimuli Skin- warm & dry Assessment & Plan SEPSIS SECONDARY TO INFECTED SACRAL DECUBITUS ULCER Met criteria for sepsis at time of admission per 2001 definition and current CMS guidelines- leukocytosis, tachycardia, tachypnea. Likely source = infected sacral decubitus ulcer. Wound cultures obtained: (+) Proteus and E coli Received broad spectrum antibiotic coverage with piperacillin / tazobactam + vancomycin --> changed to Unasyn--> changed to Augmentin BID PO Day 5 continue Augmentin indefinitely until re-evaluated by ID Clinic- Dr. Stubbs DECUBITUS ULCERS Decubitus ulcers of sacrum and bilateral heels. Sacral ulcer unstageable at time of admission, but appears to be deep. Initially received IV vancomycin and piperacillin / tazobactam. ID consulted and Wound Care consulted. Wound culture growing Proteus mirabilis and E coli. Transitioned from IV piperacillin / tazobactam to ampicillin / sulbactam. ID consulted Dr. Stubbs transitioned to PO Augmentin BID to continue indefinitely -- Wound Care Service consulted; sacral wound debrided. looks better per senior packaging engineer Continue local care daily, monitor closely Outpatient ff up with Wound Care Center Strict turning every 2 hours -- Wound Care Instructions: TO HEELS- CLEAN WITH SALINE. COVER WITH AQUACEL AG AND OPTIFOAM. CHANGE DAILY. WAFFLE BOOTS AT ALL TIME TO BUTTOCKS/SACRUM/COCCYX AREAS- IRRIGATE WITH SALINE. FILL WITH AQUACEL AG AND COVER WITH OPTIFOAM. CHANGE DAILY AND NEEDED. WAFFLE BOOTS [id number] MATTRESS TURN AT LEAST [id number] MUST FOLLOW-UP WITH [facility] WITHIN 1 WEEK OF DISCHARGE. 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 -- no behavioral issues noted -- on Olanzepine BPH -- Has Disla cath due to sacral decubitus ulcer. Monitor NUTRITION followed by Nutrition Service. Receiving supplements. 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 -- maintain indwelling Disla catheter until wound heals. 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 Rivaroxaban order continued at time of admission, but was not taking PO meds consistently. Transitioned to SQ enoxaparin; Pharmacy consulted for dosing. monitor, and transition to Rivaroxaban if intake of PO medication becomes consistent DISPOSITION transition to [facility] today Primary Care Physician ff up c/o [facility] ff up with Infectious Disease Clinic c/o Dr. Stubbs in 1 week ff up with Wound Care Clinic in 1 week updated by Jose Dyer and she is agreeable with plan of care Current Inpatient Medications: Current Inpatient Medications Medications (Trade) Dose Ordered Sig/Amos Route Start Time Stop Time Status Last Admin Dose Admin Polyethylene (Miralax Powder Packet) 17 gm DAILY PRN PO 11/11/17 22:30 12/11/17 22:29 Ondansetron HCl (Zofran Inj) 4 mg Q6H PRN IV 11/11/17 21:15 12/11/17 21:14 Acetaminophen (Tylenol Supp) 650 mg Q4H PRN VA 11/11/17 22:00 12/11/17 21:59 Olanzapine (Zyprexa Tab) 2.5 mg HS PO 11/12/17 21:00 12/12/17 20:59 11/28/17 20:29 2.5 MG Tamsulosin HCl (Flomax Cap) 0.4 mg HS PO 11/12/17 21:00 12/12/17 20:59 11/28/17 20:29 0.4 MG Trazodone HCl (Desyrel Tab) 50 mg HS PRN PO 11/11/17 22:00 12/11/17 21:59 Lorazepam (Ativan Tab) 1 mg Q6H PRN SL 11/11/17 22:30 12/11/17 22:29 Enoxaparin Sodium (Lovenox Inj) 80 mg Q12H SQ 11/14/17 08:00 12/14/17 07:59 11/29/17 08:15 80 MG Enoxaparin Sodium (Consult) 1 ea UD PRN N/A 11/17/17 13:15 12/17/17 13:14 Enteral Nutritional Formula (Boost Plus Vanilla) 1 can BIDM PO 11/17/17 17:00 12/17/17 16:59 11/29/17 08:16 1 CAN Miscellaneous Information (Pharmacy Consult) 1 ea UD PRN N/A 11/25/17 11:00 12/25/17 10:59 Amoxicillin/ Clavulanate Potassium (Augmentin Susp) 10.9 ml BIDM PO 11/25/17 12:00 12/14/17 11:59 11/29/17 08:17 10.9 ML
--- NOTE | 2017-11-29 10:51 | Discharge Summary ---
Discharge Summary Date of Service Nov 29, 2017. Discharge Summary Admission Date: Nov 11, 2017 at 21:18 Discharge Date: Nov 29, 2017 Discharge Disposition: detention facility Principal Diagnosis: SEPSIS SECONDARY TO INFECTED SACRAL DECUBITUS ULCER Secondary Diagnoses/Problems: PLEASE REFER TO HOSPITAL COURSE BELOW. Procedures: HEAD WITHOUT CONTRAST (CT) CT DOSE: 712.55 mGy.cm HISTORY: Mental status change ams TECHNIQUE: Multiaxial CT images of the head were performed without the use of intravenous contrast. A dose lowering technique was utilized adhering to the principles of ALARA. Comparison: 09/01/2017 Findings: The paranasal sinuses and mastoid air cells are clear. Atrophy. Considerable chronic small vessel change. Moderate compensatory prominence of the ventricular system. No acute intracranial hemorrhage. No midline shift. Impression: Chronic and age-related change. No acute intracranial abnormality. CHEST ONE VIEW PORTABLE CLINICAL HISTORY: ams chest pain COMPARISON STUDY: N2 2016 FINDINGS: Minimal parenchymal infiltrate left base. Lungs otherwise appear clear. Diaphragms smooth. IMPRESSION: Minimal parenchymal infiltrate left base. L FOOT 2 VIEWS CLINICAL HISTORY: PRESSURE WOULD infection COMPARISON: None. DISCUSSION: Generalized degenerative change. Mild generalized osteopenia. Small heel spur. No evidence for lytic or blastic process. Mild generalized soft tissue edema. IMPRESSION: Mild generalized soft tissue edema. Moderate degenerative change. Osteopenia. R FOOT 2 VIEWS CLINICAL HISTORY: PRESSURE WOUND infection COMPARISON: None. DISCUSSION: Generalized degenerative change. Osteopenia. No lytic or blastic process. There is no evidence for soft tissue swelling. IMPRESSION: Degenerative change. Osteopenia. SACRUM COCCYX MIN 2 VIEWS CLINICAL HISTORY: sacral wound COMPARISON STUDY: None. FINDINGS: Large amount of well-formed stool seen within the rectum. No erosive changes seen within the sacrum or coccyx to suggest osteomyelitis. No fractures. Presacral soft tissues are intact. A 1.8 cm focus of soft tissue gas within the lower gluteal region on the lateral view may represent the patient's known sacral decubitus ulcer. IMPRESSION: 1. No evidence for osteomyelitis within the sacrum or coccyx. 2. A 1.8 cm focus of soft tissue gas within the lower gluteal region may correspond to the patient's sacral decubitus ulcer. Consultations: INFECTIOUS DISEASE, WOUND CARE SERVICE Pending Studies/Follow-Up: TURN PATIENT EVERY 2 HOURS. PLEASE FOLLOW WOUND CARE NURSE INSTRUCTIONS: TO HEELS- CLEAN WITH SALINE. COVER WITH AQUACEL AG AND OPTIFOAM. CHANGE DAILY. WAFFLE BOOTS AT ALL TIME TO BUTTOCKS/SACRUM/COCCYX AREAS- IRRIGATE WITH SALINE. FILL WITH AQUACEL AG AND COVER WITH OPTIFOAM. CHANGE DAILY AND NEEDED. WAFFLE BOOTS [id number] MATTRESS TURN AT LEAST [id number] MUST FOLLOW-UP WITH [facility] WITHIN 1 WEEK OF DISCHARGE. SPEECH THERAPY EVALUATION: 1. Pureed diet, NECTAR thick liquids. 2. Aspiration precautions, no straws. Fully upright for meals and for 30 minutes after meals. 3. Will need assistance with eating. Only feed when awake/alert, and able. to participate. Medication whole or crushed and placed in a carrier such as pudding or applesauce. 4. Oral care (as tolerated) prior to and after meals, and before bed, to minimize oral bacteria that can be aspirated in saliva. 5. Would benefit from continued speech therapy upon discharge for carryover of diet, strategies for swallow safety, and modfy diet further as indicated. NEEDS ASSISTANCE WITH ALL ACTIVITIES OF DAILY LIVING. PLEASE REFER TO ACCOMPANYING HOSPITAL DISCHARGE SUMMARY. FOLLOW UP WITH WOUND CARE SERVICE IN [facility] IN 1 WEEK. FOLLOW UP WITH INFECTIOUS DISEASE CLINIC C/O DR. STUBBS IN 1 WEEK. Medication Reconciliation New Medications: Amoxicillin & Pot Clavulanate (Amoxicillin/Clavulanate P) 1 Michelle Michelle 10.9 ML PO BIDM for 30 Days Enoxaparin (Lovenox) 80 Mg/0.8 Ml Inj 80 MG SQ Q12H for 30 Days Enteral Nutrition Formula (Ensure Plus Vanilla) 1 Can Liqd 1 CAN PO BIDM for 30 Days Continued Medications: Acetaminophen (Tylenol) 650 Mg Supp 650 MG ID Q4 PRN for Pain (MAX 3 GM / 24 HRS) Acetaminophen Tab (Tylenol) 325 Mg Tab 650 MG PO Q4 PRN for Pain Lorazepam (Lorazepam) 1 Mg Tab 1 MG UT Q4 PRN for Anxiety/Agitation Olanzapine (Zyprexa) 2.5 Mg Tab 2.5 MG PO HS Promethazine Hcl (Phenergan) 25 Mg Tab 25 MG PO Q6H PRN for Nausea Tamsulosin Hcl (Flomax) 0.4 Mg Cap 0.4 MG PO HS, CAP Trazodone Hcl (Trazodone) 50 Mg Tab 50 MG PO HS PRN for Agitation Discontinued Medications: Diazepam (Valium) 5 Mg Tab 5 MG PO Q6 PRN for Anxiety Glycopyrrolate (Glycopyrrolate) 1 Mg Tab 1-2 TABS PO Q4 PRN for ACID Morphine Sulfate (Morphine Sulfate) 20 Mg/1 Ml Soln 0.25-0.5 ML PO Q1H for Pain Rivaroxaban (Xarelto) 20 Mg Tab 1 TAB PO DAILY for 30 Days, #30 TAB 11 Refills Admission Information HPI (per Admitting provider): Pt is 82 y/o M with PMH BPH, dementia with behavioral disturbances, DVT/PE dx 3 weeks ago presented to ER from [facility] for sacral and heel wounds. Pt not alert or oriented and non-verbal. Pt was on hospice, sent to ER secondary to ulcers for further care. Called and spoke to Samira Edgar, pt's . She reports pt has been bedridden and has been non-verbal and doesn't open his eyes. Spoke to staff at [facility]. Report pt was on hospice. State 3 weeks ago dx with DVT and PE and completed 3 weeks Xarelto 15mg BID and start 20mg daily tomorrow. Staff reports when pt arrived in 08/16 sitting in chair most of the time past 2 months been bedridden and they turn him. States had ulcers approx 2 weeks with worsening. Reports past 1.5 week pt with temp 99-101F and has been receiving Tylenol. Reports pt not able to feed himself and eats soft diet, fed by staff and denies any choking episodes. Reports pt been non-verbal recently, previous would " jabber" intermittently. States pt seems to be resting without noted respiratory distress. Staff denies diarrhea, other noted rashes, vomiting. In ER pt temp: 37.4, Pulse: 117, BP: 156/99, 100% on RA, WBC: 12, hgb: 10.7, POC lactic acid 2.2. CXR: minimal parenchymal infiltrate L base. L foot xray: soft tissue swelling. R foot xray: degenerative changes. Head CT: no acute changes. Given vancomycin in ER. Physical Exam (per Admitting): General Appearance: + pertinent finding (chronic ill appearing, thin, resting in bed, eyes closed, no distress noted, breathing through mouth) Head: normocephalic, atraumatic Eyes: normal inspection, PERRL, sclerae normal ENT: pharynx normal, + pertinent finding (mucous membranes mildly dry) Neck: supple, trachea midline Respiratory/Chest: no respiratory distress, no accessory muscle use, + decreased breath sounds (scattered rhonchi) Cardiovascular: normal peripheral pulses, + irregularly irregular Abdomen/GI: normal bowel sounds, soft, + pertinent finding (no apparent tenderness to palpation) Extremities/Musculoskelatal: normal capillary refill, no pedal edema, + pertinent finding (left heel with ulcer with mild surrounding erythema, right heel with ulcer with mild surrounding erythema, sacrum with grade 3 ulcer with escar and +foul odor ) Neurologic/Psych: + pertinent finding (pt eyes closed, non-verbal) Skin: warm/dry, + pertinent finding (left medial aspect knee with skin erythema. see above) Hospital Course SEPSIS SECONDARY TO INFECTED SACRAL DECUBITUS ULCER Met criteria for sepsis at time of admission per 2001 definition and current CMS guidelines- leukocytosis, tachycardia, tachypnea. Likely source = infected sacral decubitus ulcer. Wound cultures obtained: (+) Proteus and E coli Received broad spectrum antibiotic coverage with piperacillin / tazobactam + vancomycin --> changed to Unasyn--> changed to Augmentin BID PO Day 5 continue Augmentin indefinitely until re-evaluated by ID Clinic- Dr. Stubbs DECUBITUS ULCERS Decubitus ulcers of sacrum and bilateral heels. Sacral ulcer unstageable at time of admission, but appears to be deep. Initially received IV vancomycin and piperacillin / tazobactam. ID consulted and Wound Care consulted. Wound culture growing Proteus mirabilis and E coli. Transitioned from IV piperacillin / tazobactam to ampicillin / sulbactam. ID consulted Dr. Stubbs transitioned to PO Augmentin BID to continue indefinitely -- Wound Care Service consulted; sacral wound debrided. looks better per slat basket maker machine Continue local care daily, monitor closely Outpatient ff up with Wound Care Center Strict turning every 2 hours -- Wound Care Instructions: TO HEELS- CLEAN WITH SALINE. COVER WITH AQUACEL AG AND OPTIFOAM. CHANGE DAILY. WAFFLE BOOTS AT ALL TIME TO BUTTOCKS/SACRUM/COCCYX AREAS- IRRIGATE WITH SALINE. FILL WITH AQUACEL AG AND COVER WITH OPTIFOAM. CHANGE DAILY AND NEEDED. WAFFLE BOOTS [id number] MATTRESS TURN AT LEAST [id number] MUST FOLLOW-UP WITH [facility] WITHIN 1 WEEK OF DISCHARGE. 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 -- no behavioral issues noted -- on Olanzepine -- monitor BPH -- Has Disla cath due to sacral decubitus ulcer. Monitor NUTRITION followed by Nutrition Service. Receiving supplements. 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 -- maintain indwelling Disla catheter until wound heals. 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 Rivaroxaban order continued at time of admission, but was not taking PO meds consistently. Transitioned to SQ enoxaparin; Pharmacy consulted for dosing. monitor, and transition to Rivaroxaban if intake of PO medication becomes consistent DISPOSITION transition to [facility] today Primary Care Physician ff up c/o [facility] ff up with Infectious Disease Clinic c/o Dr. Stubbs in 1 week ff up with Wound Care Clinic in 1 week updated by Jose Dyer and she is agreeable with plan of care Total time spent on discharge = 40 minutes This includes examination of the patient, discharge planning, medication reconciliation, and communication with other providers. Discharge Instructions Discharge Instructions Date of Service Nov 29, 2017. Admission Reason for Admission: Infected Decubitus Ulcer Discharge Discharge Diagnosis / Problem: SEPSIS SECONDARY TO INFECTED SACRAL DECUBITUS ULCER Discharge Goals Goal(s): Diagnostic testing, Therapeutic intervention Activity Recommendations Activity Level: Assistance Required Therapies: Speech Therapy NEEDS ASSISTANCE WITH ALL ACTIVITIES OF DAILY LIVING INCLUDING FEEDING . Additional Information Patient informed of condition: No (PATIENT HAS ADVANCED DEMENTIA, TALKED TO ) Advance Directives: No (UNKNOWN) DNR: Yes Level of Care: Skilled Communicable Disease: No Prognosis: Stable Disla Catheter: Yes Instructions / Follow-Up Instructions / Follow-Up TURN PATIENT EVERY 2 HOURS. PLEASE FOLLOW WOUND CARE NURSE INSTRUCTIONS: TO HEELS- CLEAN WITH SALINE. COVER WITH AQUACEL AG AND OPTIFOAM. CHANGE DAILY. WAFFLE BOOTS AT ALL TIME TO BUTTOCKS/SACRUM/COCCYX AREAS- IRRIGATE WITH SALINE. FILL WITH AQUACEL AG AND COVER WITH OPTIFOAM. CHANGE DAILY AND NEEDED. WAFFLE BOOTS [id number] MATTRESS TURN AT LEAST [id number] MUST FOLLOW-UP WITH [facility] WITHIN 1 WEEK OF DISCHARGE. SPEECH THERAPY EVALUATION: 1. Pureed diet, NECTAR thick liquids. 2. Aspiration precautions, no straws. Fully upright for meals and for 30 minutes after meals. 3. Will need assistance with eating. Only feed when awake/alert, and able. to participate. Medication whole or crushed and placed in a carrier such as pudding or applesauce. 4. Oral care (as tolerated) prior to and after meals, and before bed, to minimize oral bacteria that can be aspirated in saliva. 5. Would benefit from continued speech therapy upon discharge for carryover of diet, strategies for swallow safety, and modfy diet further as indicated. NEEDS ASSISTANCE WITH ALL ACTIVITIES OF DAILY LIVING. PLEASE REFER TO ACCOMPANYING HOSPITAL DISCHARGE SUMMARY. FOLLOW UP WITH WOUND CARE SERVICE IN [facility] IN 1 WEEK. FOLLOW UP WITH INFECTIOUS DISEASE CLINIC C/O DR. STUBBS IN 1 WEEK. Current Hospital Diet Patient's current hospital diet: Regular Diet Discharge Diet Recommended Diet: Regular Diet Diet Texture: Pureed (blended smooth) Liquid Consistency: [employer] Thick Procedures Procedures Performed: CT HEAD, XRAY OF FOOT AND COCCYX Pending Studies Studies pending at discharge: no Physician Orders On Transfer Special Precautions: TURN PATIENT EVERY 2 HOURS. PLEASE FOLLOW WOUND CARE NURSE INSTRUCTIONS: TO HEELS- CLEAN WITH SALINE. COVER WITH AQUACEL AG AND OPTIFOAM. CHANGE DAILY. WAFFLE BOOTS AT ALL TIME TO BUTTOCKS/SACRUM/COCCYX AREAS- IRRIGATE WITH SALINE. FILL WITH AQUACEL AG AND COVER WITH OPTIFOAM. CHANGE DAILY AND NEEDED. WAFFLE BOOTS [id number] MATTRESS TURN AT LEAST [id number] MUST FOLLOW-UP WITH [facility] WITHIN 1 WEEK OF DISCHARGE. SPEECH THERAPY EVALUATION: 1. Pureed diet, NECTAR thick liquids. 2. Aspiration precautions, no straws. Fully upright for meals and for 30 minutes after meals. 3. Will need assistance with eating. Only feed when awake/alert, and able. to participate. Medication whole or crushed and placed in a carrier such as pudding or applesauce. 4. Oral care (as tolerated) prior to and after meals, and before bed, to minimize oral bacteria that can be aspirated in saliva. 5. Would benefit from continued speech therapy upon discharge for carryover of diet, strategies for swallow safety, and modfy diet further as indicated. NEEDS ASSISTANCE WITH ALL ACTIVITIES OF DAILY LIVING. PLEASE REFER TO ACCOMPANYING HOSPITAL DISCHARGE SUMMARY. FOLLOW UP WITH WOUND CARE SERVICE IN [facility] IN 1 WEEK. FOLLOW UP WITH INFECTIOUS DISEASE CLINIC C/O DR. STUBBS IN 1 WEEK. Medical Emergencies . Who to Call and When: Medical Emergencies: If at any time you feel your situation is an emergency, please call 911 immediately. . Non-Emergent Contact Non-Emergency issues call your: Primary Care Provider, Specialist (INFECTIOUS DISEASE, WOUND CARE CLINIC) Call Non-Emergent contact if: you have a fever, wound has increased drainage, wound has increased redness, wound has increased pain, you have any medication questions . . "Provider Documentation" section prepared by Sonny Odell. . Core Measure Problem Core Measures: None
== END 2017-11-29 11:00 | DRG 853 ==
LOC: EDBD 16:00 → C.EDA 16:02 → C.MS4W 21:18 → ENRESERV 22:12
PROVIDERS: ADMIT Family Medicine; ATTEND Internal Medicine
PROC: 0JB90ZZ Excision of Buttock Subcutaneous Tissue and Fascia, Open Approach (ICD-10-PCS; principal; 2017-11-14)
DX: A41.9 Sepsis, unspecified organism (principal); L89.323 Pressure ulcer of left buttock, stage 3; L89.623 Pressure ulcer of left heel, stage 3; F03.91 Unspecified dementia, unspecified severity, with behavioral disturbance; L89.310 Pressure ulcer of right buttock, unstageable; L89.610 Pressure ulcer of right heel, unstageable; F32.9 Major depressive disorder, single episode, unspecified; N40.0 Benign prostatic hyperplasia without lower urinary tract symptoms; Z79.01 Long term (current) use of anticoagulants; Z79.899 Other long term (current) drug therapy; Z86.718 Personal history of other venous thrombosis and embolism; Z86.711 Personal history of pulmonary embolism; Z66 Do not resuscitate

== ENCOUNTER → 2017-11-30 | Outpatient (CLI) | payer OTHER ==
[~2017-11-30] MED LIST changes: +ACET325T96 PO; +ACET650S10 PR; +AMOX400S2 PO; -ASPI81TA28 PO; -CITA10TA4 PO; -DIVA1CAP PO; +LVNIS80 SQ; -MELATAB2 PO; -MULTTAB63 PO; +NUTR-977 PO; +OLAN-80 PO; -POLY335019 PO; +PROM25TA9 PO; -ZYP5 PO
[2017-11-30 10:03] LABS: BASO % 0.2 %; BASO ABS # 0.02 K/uL (0-0.2); EOS % 4.3 %; EOS ABS # 0.36 K/uL (0-0.5); HEMATOCRIT 35.8 % (42-52); HEMOGLOBIN 11.2 g/dL (14.0-18.0); IG# 0.02 K/uL (0.00-0.02); LYMPH % 30.6 %; LYMPH ABS # 2.55 K/uL (1.2-3.4); MEAN CELL VOLUME 95.5 fL (80-100); MEAN CORPUSCULAR HEMOGLOBIN 29.9 pg (25-34); MEAN CORPUSCULAR HGB CONC 31.3 g/dl (32-36); MEAN PLATELET VOLUME 12.2 fL (7.4-10.4); MONO % 6.4 %; MONO ABS # 0.53 K/uL (0.11-0.59); NEUT % 58.3 %; NEUT ABS # 4.85 K/uL (1.4-6.5); PLATELET COUNT 238 K/uL (130-400); RED CELL DISTRIBUTION WIDTH CV 16.6 % (11.5-14.5); RED CELL DISTRIBUTION WIDTH SD 57.2 fL (36.4-46.3); WHITE BLOOD COUNT 8.33 K/uL (4.8-10.8)
[2017-11-30 10:24] LABS: ALBUMIN 2.4 gm/dl (3.4-5.0); ALKALINE PHOSPHATASE 74 U/L (45-117); AST/SGOT 13 U/L (15-37); BLOOD UREA NITROGEN 15 mg/dl (7-18); CALCIUM 8.3 mg/dl (8.5-10.1); CARBON DIOXIDE 28 mmol/L (21-32); GLUCOSE 94 mg/dl (70-99); POTASSIUM 4.3 mmol/L (3.5-5.1); SODIUM 142 mmol/L (136-145)
[2017-11-30 10:35] LABS: ALT/SGPT 18 U/L (12-78)
== END ==
LOC: C.LABUPNIT 08:58
PROVIDERS: ATTEND Nurse Practitioner Family
DX: A41.9 Sepsis, unspecified organism (principal); L89.159 Pressure ulcer of sacral region, unspecified stage